=== PATIENT | female | born 1955 | race Caucasian/White ===

== ENCOUNTER → 2019-11-01 10:44 | Outpatient (CLI) | payer MEDICARE, SELFPAY ==
--- NOTE | 2019-11-01 10:52 | DI.MRI.S_ITS ---
PROCEDURE: MR CERVICAL SPINE WO CON INDICATIONS: Neck pain TECHNIQUE: Noncontrast sagittal T1 spin echo and T2 fast spin echo, sagittal STIR, foraminal oblique sagittal T2 fast spin echo, and axial gradient echo or T2 fast spin echo through the cervical spine. COMPARISON: [facility], MR, C-SPINE WITHOUT CONTRAST, 01/25/2017, 12:21. FINDINGS: Image quality: Excellent. Alignment and Curvature: Trace degenerative anterolisthesis of C4 on C5. Bone Marrow: Marrow demonstrates normal overall signal. Spinal Cord: Visualized spinal cord has normal size and signal. No cerebellar tonsillar herniation. Paraspinous Soft Tissues: No paravertebral masses. Prevertebral soft tissues are normal in thickness. C2-C3: No canal stenosis or foraminal stenosis. Right facet hypertrophy. C3-C4: No canal stenosis. Bilateral facet hypertrophy, prominent on the left. Mild bilateral uncovertebral joint hypertrophy. Mild right foraminal narrowing and mild to moderate left foraminal narrowing. C4-C5: Mild disc bulge. Trace anterolisthesis of C4 on C5. Mild flattening of the ventral surface of the cord. Mild canal stenosis. Mild bilateral uncovertebral joint hypertrophy. Bilateral facet hypertrophy, prominent on the left. There is mild right foraminal narrowing. There is moderate left foraminal narrowing with flattening deformity on the exiting left C5 nerve root. C5-C6: Disc bulge, with flattening and mild indentation of the ventral cord and moderate canal stenosis. Bilateral uncovertebral joint hypertrophy. Left facet hypertrophy. Moderate bilateral foraminal narrowing, with flattening deformity on the exiting bilateral C6 nerve roots. C6-C7: Unchanged right paracentral disc protrusion, indenting on the cord, resulting in severe stenosis of the right side of the central canal and moderate stenosis of the left side of the central canal. There is bilateral uncovertebral joint hypertrophy and left facet hypertrophy. There is moderate right foraminal narrowing with flattening deformity on the exiting right C7 nerve root. There is severe left foraminal narrowing with impingement on the left C7 nerve root. C7-T1: No canal stenosis or foraminal stenosis. IMPRESSION: 1. Diffuse spondylitic change. 2. Canal stenosis is mild at C4-C5 and moderate at C5-C6. At C6-C7, there is severe stenosis of the right side of the central canal and moderate stenosis of the left side of the central canal. 3. Multilevel foraminal narrowing as described above. Findings include moderate left foraminal narrowing at C4-C5, moderate bilateral foraminal narrowing at C5-C6, and moderate to severe right foraminal narrowing and severe left foraminal narrowing at C6-C7. 4. Multilevel facet arthropathy. Dictated by: Jose Bright M.D. on 11/01/2019 at 11:38 Approved by: Jose Bright M.D. on 11/01/2019 at 11:52
== END ==
PROVIDERS: Family Provider Family Medicine; PCP Family Medicine; Referring Provider Physical Medicine & Rehabilitation; Visit Provider Physical Medicine & Rehabilitation
DX: M54.2 Cervicalgia (principal); M47.812 Spondylosis without myelopathy or radiculopathy, cervical region; M48.02 Spinal stenosis, cervical region
CPT/HCPCS: 72141

== ENCOUNTER → 2020-03-06 10:01 | Outpatient (CLI) | payer MEDICARE, SELFPAY ==
[2020-03-06 10:41] LABS: Add Manual Diff / Slide Review NO; Basophils Absolute Auto 0 /uL (0-100); Basophils Percent Auto 0.4 % (0-2); Eosinophils Absolute Auto 200 /uL (0-450); Eosinophils Percent Auto 2.6 % (2-4); Hematocrit 39.1 % (36-46); Hemoglobin 13.2 g/dL (12.0-16.0); Lymphocytes Absolute Auto 2600 /uL (1100-4500); Lymphocytes Percent Auto 29.4 % (25-40); Mean Corpuscular HGB Conc 33.9 % (30-36); Mean Corpuscular Hemoglobin 31.8 PG (26-34); Mean Corpuscular Volume 93.9 fL (80-100); Monocytes Absolute Auto 500 /uL (0-900); Monocytes Percent Auto 5.8 % (3-14); Neutrophils Absolute Auto 5500 /uL (1500-7000); Neutrophils Percent Auto 61.8 % (50-75); Platelet Count 223 X10^3/uL (150-400); Red Blood Cell Count 4.16 X10^6/uL (4.0-5.2); Red Cell Distribution Width 13.1 % (11.6-14.8)
[2020-03-06 10:51] LABS: Alanine Aminotransferase 81 IU/L (<35); Albumin 4.6 g/dL (3.5-5.0); Albumin Globulin Ratio 1.3 (1.0-2.8); Alkaline Phosphatase 99 U/L (38-126); Aspartate Aminotransferase 83 IU/L (14-36); BUN Creatinine Ratio 17.1 (6-22); Bilirubin Total 0.7 mg/dL (0.2-1.3); Blood Urea Nitrogen 12 mg/dL (7-17); Calcium 9.8 mg/dL (8.4-10.2); Carbon Dioxide 29 mmol/L (22-32); Chloride 103 mmol/L (98-107); Cholesterol 187 mg/dL (140-199); Estimated Glomerular Filt Rate > 60.0 mL/min (>60); Globulin 3.5 g/dL (1.7-4.1); Glucose 152 mg/dL (80-110); HDL Cholesterol 44 mg/dL (40-60); HEMOLYSIS < 15 (0-50); LDL Cholesterol Calculated 106 mg/dL (<100); Potassium 4.2 mmol/L (3.4-5.1); Sodium 139 mmol/L (137-145); Total Protein 8.1 g/dL (6.3-8.2); Triglycerides 184 mg/dL (35-150)
[2020-03-06 11:22] LABS: Thyroid Stimulating Hormone 2.22 uIU/mL (0.47-4.68)
== END ==
PROVIDERS: Family Provider Family Medicine; PCP Family Medicine; Referring Provider Family Medicine; Visit Provider Family Medicine
DX: E78.2 Mixed hyperlipidemia (principal)
CPT/HCPCS: 36415; 80053; 80061; 84443; 85025

== ENCOUNTER → 2020-04-04 14:54 | Outpatient (CLI) | payer MEDICARE, SELFPAY ==
[2020-04-04 15:52] LABS: Add Manual Diff / Slide Review NO; Basophils Absolute Auto 0 /uL (0-100); Basophils Percent Auto 0.3 % (0-2); Eosinophils Absolute Auto 100 /uL (0-450); Eosinophils Percent Auto 1.3 % (2-4); Hematocrit 40.5 % (36-46); Hemoglobin 13.8 g/dL (12.0-16.0); Lymphocytes Absolute Auto 2400 /uL (1100-4500); Lymphocytes Percent Auto 20.6 % (25-40); Mean Corpuscular HGB Conc 34.2 % (30-36); Mean Corpuscular Hemoglobin 31.7 PG (26-34); Mean Corpuscular Volume 92.8 fL (80-100); Monocytes Absolute Auto 500 /uL (0-900); Monocytes Percent Auto 4.2 % (3-14); Neutrophils Absolute Auto 8400 /uL (1500-7000); Neutrophils Percent Auto 73.6 % (50-75); Platelet Count 217 X10^3/uL (150-400); Red Blood Cell Count 4.37 X10^6/uL (4.0-5.2); Red Cell Distribution Width 13.2 % (11.6-14.8); White Blood Cell Count 11.5 X10^3/uL (4.5-11.0)
[2020-04-04 16:58] LABS: Alanine Aminotransferase 65 IU/L (<35); Albumin 4.7 g/dL (3.5-5.0); Albumin Globulin Ratio 1.4 (1.0-2.8); Alkaline Phosphatase 115 U/L (38-126); Aspartate Aminotransferase 74 IU/L (14-36); BUN Creatinine Ratio 13.8 (6-22); Bilirubin Total 0.6 mg/dL (0.2-1.3); Blood Urea Nitrogen 9 mg/dL (7-17); Calcium 10.6 mg/dL (8.4-10.2); Carbon Dioxide 29 mmol/L (22-32); Chloride 101 mmol/L (98-107); Cholesterol 180 mg/dL (140-199); Estimated Glomerular Filt Rate > 60.0 mL/min (>60); Globulin 3.4 g/dL (1.7-4.1); Glucose 166 mg/dL (80-110); HDL Cholesterol 54 mg/dL (40-60); HEMOLYSIS < 15 (0-50); LDL Cholesterol Calculated 81 mg/dL (<100); Potassium 4.5 mmol/L (3.4-5.1); Sodium 140 mmol/L (137-145); Total Protein 8.1 g/dL (6.3-8.2); Triglycerides 226 mg/dL (35-150)
[2020-04-05 03:22] LABS: HBsAg Screen Negative (Negative); Hepatitis A Antibody IgM Negative (Negative); Hepatitis B Core Antibody IgM Negative (Negative); Hepatitis C Antibody <0.1 s/co ratio (0.0-0.9)
== END ==
PROVIDERS: Family Provider Family Medicine; PCP Family Medicine; Referring Provider Family Medicine; Visit Provider Family Medicine
DX: E78.2 Mixed hyperlipidemia (principal); R79.89 Other specified abnormal findings of blood chemistry
CPT/HCPCS: 36415; 80053; 80061; 80074; 85025

== ENCOUNTER → 2020-04-07 08:27 | Outpatient (CLI) | payer MEDICARE, SELFPAY ==
--- NOTE | 2020-04-07 08:28 | DI.US.S_ITS ---
PROCEDURE: US ABDOMEN COMPLETE INDICATIONS: ELEVATED LFTS TECHNIQUE: Real-time scanning was performed of the abdominal and retroperitoneal organs, with image documentation. COMPARISON: None. FINDINGS: Liver: The liver demonstrates normal size. The liver demonstrates generalized increased echogenicity. This decreases ultrasound sensitivity for detection of hepatic masses. Gallbladder: The gallbladder is prominent in size. No findings of gallstones or sludge are seen. The gallbladder wall is not thickened, measuring 3 mm or less. No specific pericholecystic fluid is seen. The sonographic Jaime sign is negative. Biliary ducts: Intrahepatic biliary ductal dilatation is seen. The common bile duct is dilated, measuring nearly 11 mm. Pancreas: The pancreas is not well seen. The pancreatic duct is minimally dilated at 3.1 mm. Spleen: The spleen measures near the upper limits of normal at 12.8 cm. Kidneys: Kidneys are normal in size and echotexture. Right kidney measures 10.9 cm long; left kidney measures 11.4 cm long. No hydronephrosis. Within the left kidney, numerous small echogenic foci are seen, with associated shadowing. No solid masses. Aorta: Visualized aorta is normal in caliber at less than 3 cm. Iliacs: Proximal common iliac arteries are normal in caliber at less than 2.5 cm. IVC: Intrahepatic inferior vena cava is patent. Miscellaneous: No free abdominal fluid. This study is limited by body habitus. This study is further limited by bowel gas. IMPRESSION: Abnormally enlarged gallbladder, without additional gallbladder abnormality. The common bile duct is dilated at nearly 11 mm. The pancreatic duct is also minimally dilated at 3.1 mm. If clinically appropriate, an MRCP could be considered for further evaluation (assuming that there is no contraindication to MRI). The liver demonstrates increased echogenicity. This finding is nonspecific, yet it is most commonly attributed to fatty infiltration. Apparent nonobstructing left-sided renal stones are seen. Dictated by: Christopher Gillespie M.D. on 04/07/2020 at 13:40 Approved by: Christopher Gillespie M.D. on 04/07/2020 at 13:42
== END ==
PROVIDERS: Family Provider Family Medicine; PCP Family Medicine; Referring Provider Family Medicine; Visit Provider Family Medicine
DX: R79.89 Other specified abnormal findings of blood chemistry (principal); K82.8 Other specified diseases of gallbladder; K83.8 Other specified diseases of biliary tract; N20.0 Calculus of kidney
CPT/HCPCS: 76700

== ENCOUNTER → 2020-04-15 07:51 | Outpatient (CLI) | payer MEDICARE, SELFPAY ==
--- NOTE | 2020-04-15 07:53 | DI.MRI.S_ITS ---
PROCEDURE: MR ABDOMEN WO CON INDICATIONS: Other specified diseases of biliary tract TECHNIQUE: Coronal HASTE through the abdomen, axial 2-D FLASH in- and [id number], and breath-hold T2 FSE with fat saturation through the biliary system and pancreas. Oblique coronal and axial thin-slice HASTE, radial thick-slab HASTE centered on the extrahepatic bile ducts. Intravenous secretin: Not requested. COMPARISON: [facility], , US ABDOMEN COMPLETE, 04/07/2020, 8:49. FINDINGS: Image quality: Excellent. Pancreas and biliary system: Intra-hepatic biliary ducts are non dilated. The common bile duct measures up to 10 mm, above the upper limits of normal for a patient with normal gallbladder in place. The gallbladder itself has mildly diminished in size, previously measuring up to 11.6 cm in length and now 9.5 cm. No gallstones are seen within the gallbladder lumen and no adjacent inflammatory changes present Pancreas is normal in morphology, without adjacent soft tissue edema. Pancreatic duct is normal in caliber, without developmental anomalies. Gallbladder shows no evidence of biliary sludge. Other solid organs: Liver is normal in size, and diffusely fatty infiltrated. Spleen is normal in size. No adrenal nodules. Both kidneys are normal in size, without hydronephrosis. Nodes and vessels: No retroperitoneal or mesenteric adenopathy by size criteria. Aorta and inferior vena cava are normal in size. Bowel and peritoneum: Unenhanced bowel loops are normal in caliber. No free fluid. Lung bases: No basal pleural effusions. Heart size is normal. Bones and soft tissues: No ventral hernias. Bone marrow is of normal overall signal. IMPRESSION: 1. Diffuse fatty infiltration throughout the liver. No hepatic mass or intrahepatic biliary distention is found. 2. The gallbladder is prominent in size but has diminished to 9.5 cm in maximal transverse dimension versus 11.5 cm during ultrasound scanning 04/07/20. Given this prominence in size and the biliary distension identified at the common duct open (measuring up to 10 mm close) follow-up hepatobiliary HIDA scan for assessment of gallbladder contractility may be warranted. 3. The common duct measures up to 10 mm in diameter but on MR cholangiogram moody a gene shows no evidence of distal common duct calculus or mass. Pancreatic duct is normal in caliber. Dictated by: Franky Suresh M.D. on 04/15/2020 at 10:02 Approved by: Franky Suresh M.D. on 04/15/2020 at 10:10
== END ==
PROVIDERS: Family Provider Family Medicine; PCP Family Medicine; Referring Provider Family Medicine; Visit Provider Family Medicine
DX: K83.8 Other specified diseases of biliary tract (principal); K76.0 Fatty (change of) liver, not elsewhere classified
CPT/HCPCS: 74181

== ENCOUNTER → 2020-05-09 09:20 | Outpatient (CLI) | payer MEDICARE, SELFPAY ==
[2020-05-09 22:35] LABS: COVID19 Sendout Not Detected (Not Detect)
== END ==
PROVIDERS: PCP Family Medicine; Visit Provider Physician Assistant
DX: Z11.59 Encounter for screening for other viral diseases (principal)
CPT/HCPCS: 87635

== ENCOUNTER → 2020-05-28 07:47 | Outpatient (CLI) | payer MEDICARE, SELFPAY ==
--- NOTE | 2020-05-28 07:55 | DI.NM.S_ITS ---
PROCEDURE: NM HIDA WITH CCK PHARMACEUTICAL: A 5.5 mCi Tc-99m mebrofenin IV; 1.4 mcg CCK IV. INDICATIONS: biliary dyskinesia TECHNIQUE: Following intravenous administration of Tc-99m mebrofenin, sequential anterior abdominal images were obtained. To evaluate the contractile response of the gallbladder in response to Cholecystokinin (CCK), sincalide (0.02 ?g/kg) was administered by slow intravenous infusion approximately 60 minutes after the administration of the radiopharmaceutical. Sequential imaging was continued for 30 minutes after the start of CCK infusion. Gallbladder ejection fraction was calculated. COMPARISON: None. FINDINGS: Biliary scan: There is normal tracer uptake and excretion by the liver. There is normal visualization of the intrahepatic ducts, common bile duct, and gallbladder. There is normal tracer transit into the duodenum. CCK stimulation: There is normal contractile response of the gallbladder to CCK infusion. The calculated gallbladder ejection fraction is 66% ; normal values are above 35%. It has been shown that any patient abdominal pain after CCK administration is related to the rate of CCK injection, rather than to any underlying gallbladder disease (Clinical Nuclear Medicine 2012; 37: 63-70. Journal of Nuclear Medicine 2014; 55: 1-9). IMPRESSION: Normal hepatobiliary uptake of isotope, normal excretion of the isotope through the biliary system including reflux of isotope into the gallbladder lumen. Normal gallbladder ejection fraction of 66%. Dictated by: Franky Suresh M.D. on 05/28/2020 at 10:40 Approved by: Franky Suresh M.D. on 05/28/2020 at 10:41
== END ==
PROVIDERS: PCP Family Medicine; Referring Provider Surgery; Visit Provider Surgery
DX: K82.8 Other specified diseases of gallbladder (principal)
CPT/HCPCS: 78227; A9537; J2805

== ENCOUNTER → 2020-06-06 10:32 | Outpatient (CLI) | payer MEDICARE, SELFPAY ==
[2020-06-06 11:57] LABS: COVID19 -Nasal RAPID Negative (Negative)
== END ==
PROVIDERS: PCP Family Medicine; Visit Provider Surgery
DX: Z11.59 Encounter for screening for other viral diseases (principal); Z01.812 Encounter for preprocedural laboratory examination
CPT/HCPCS: 87635; C9803

== ENCOUNTER → 2020-06-07 11:02 | Outpatient (CLI) | payer MEDICARE, SELFPAY ==
[2020-06-08 06:53] LABS: HBsAg Screen Negative (Negative); Hepatitis A Antibody IgM Negative (Negative); Hepatitis B Core Antibody IgM Negative (Negative); Hepatitis C Antibody <0.1 s/co ratio (0.0-0.9)
== END ==
PROVIDERS: PCP Family Medicine; Referring Provider Family Medicine; Visit Provider Family Medicine
DX: R79.89 Other specified abnormal findings of blood chemistry (principal)
CPT/HCPCS: 36415; 80074

== ENCOUNTER 2020-06-09 09:12 | Day surgery (SDC) | payer MEDICARE, SELFPAY ==
[2020-06-09 09:34] VITALS: BP 152/88; PULSE 96; RESP 15; TEMP 36.6; O2SAT 97; BMI 27.1
--- NOTE | 2020-06-09 10:22 | PM.HP.1 ---
History of Present Illness History of Present Illness Date Patient Seen: 06/09/20 Time Patient Seen: 10:22 Chief complaint: SDC Narrative: The patient presents for colorectal sreening. They have never had any previous examination for such. No personal or family history of colon cancer. On further history denies any recent gastrointestinal symptoms. No nausea, vomiting, abdominal pain, loss of appetite, unexplained weight loss, change in bowel habits, diarrhea, constipation, melena, hematochezia, or bright red blood per rectum. Patient History Medical History Recurrent sinusitis Surgical History Anesthesia History of sinus surgery (~01/29/15) Family & Social History Family History Father No problems noted. Mother Diabetes mellitus Hypertension Social History: household members spouse Tobacco & Substance use: Tobacco type cigarettes Smoking Status Current every day smoker alcohol intake never Substance Use Type does not use Meds Home Medications and Allergies Home Medications Medication Instructions Recorded Confirmed Type lisinopril 20 mg tablet 20 mg PO BID #180 tab 04/08/20 06/09/20 Rx metoprolol succinate 25 mg 12.5 mg PO BID #30 tab 05/14/20 06/09/20 Rx tablet,extended release 24 hr atorvastatin 10 mg tablet 10 mg PO HS #90 tab 05/30/20 06/09/20 Rx hydrocodone 5 mg-acetaminophen 325 1 - 2 tab PO Q6HP PRN #120 tab 05/30/20 06/09/20 Rx mg tablet Allergies Allergy/AdvReac Type Severity Reaction Status Date / Time codeine AdvReac Mild GI Verified 06/09/20 09:33 erythromycin base AdvReac Mild SICK Verified 06/09/20 09:33 Penicillins AdvReac Mild GI Verified 06/09/20 09:33 Sulfa (Sulfonamide AdvReac Mild NAUSEA Verified 06/09/20 09:33 Antibiotics) Review of Systems Review of Systems Narrative: A 10 point review of systems is negative except as noted in the HPI Exam Vital Signs (past 8 hours): - 06/09/20 09:34 Temperature 97.8 F Pulse Rate 96 H Respiratory Rate 15 Blood Pressure 152/88 H Pulse Oximetry 97 Oxygen Delivery Method Room Air Narrative Exam Narrative: General-no acute distress, well nourished HEENT-moist mucous membranes, no scleral icterus Neck-supple, no lymphadenopathy Chest- non labored respirations, clear to auscultation bilaterally Cardiac-regular rate no peripheral edema Abdomen-soft, nontender, non distended Extremities-warm, well perfused Neurological-alert and oriented, no focal deficits Assessment & Plan Assessment & Plan narrative: The patient requires colorectal screening and colonoscopy is recommended. Technical details were discussed. Risks, benefits, alternatives explained. Risks including but not limited to myocardial infarction, aspiration, bleeding, pain, missed lesion, incomplete examination, need for further radiographic studies, colonic perforation, and need for major abdominal surgery were discussed. All questions were answered to their satisfaction, and they are in agreement with this plan.
[2020-06-09] MEDS: MIDAZOLAM 5 MG/5 ML VIAL IV (10:33)
[2020-06-09] MEDS: fentaNYL 250 MCG/5 ML INJ IV (10:34)
--- NOTE | 2020-06-09 10:46 | PM.OP.ENDO ---
Operative Date/Time/Diagnoses Date of procedure: 06/09/20 Time of procedure: 10:46 Pre-op diagnosis: screening colonoscopy Post-op diagnosis: same Procedure & Clinicians Study performed: colonoscopy Same procedure as scheduled: Yes Indications: screening Surgeon: Eder Alford Procedure Notes Procedure in detail: Medications: Conscious sedation using 6mg IV midazolam and 200mcg IV of fentanyl The history and physical was performed/updated and the patient is ASA class is 2. The procedure was discussed in detail with the patient. Potential risks complications including infection, bleeding, missed diagnosis, perforation, need for surgery, and were explained. Their questions were answered and informed consent was obtained. Patient was brought to the procedure room and placed standard monitoring equipment. The patient's vital signs were monitored continuously throughout the entire procedure. Prior to starting time-out was performed. The ablation patient was placed in the left lateral recumbent position. Procedural sedation was administered. Examination began with a thorough inspection of the perianal area there was no evidence of fissures, fistulae, external hemorrhoids or cutaneous malignancy. The colonoscopy scope was then placed into the anal canal and was advanced to the cecum, which was identified by the ileocecal valve, the appendiceal orifice and the confluence of the taenia. The scope was then slowly withdrawn examining colon thoroughly in all directions, irrigating it of any residual stool. No masses polyps Grade 1 internal hemorrhoids The patient tolerated the procedure well. They will be discharged once criteria are met. The prep was of good/excellent quality. The withdrawl time was 8 minutes. The sedation time was 20 minutes. Findings: internal hemorrhoids Specimen(s): none sent Complications: none Impression: Normal colonoscopy Post-procedure Recommendations: Colonscopy in 10 years Disposition: same day surgery
[2020-06-09 10:48] VITALS: BP 137/77; PULSE 86; RESP 12; TEMP 36.3; O2SAT 93
[2020-06-09 10:53] VITALS: BP 125/70; PULSE 85; RESP 12; O2SAT 93
[2020-06-09 10:58] VITALS: BP 125/70; PULSE 82; RESP 12; O2SAT 92
[2020-06-09 11:05] VITALS: BP 138/66; PULSE 90; RESP 16; O2SAT 95
[2020-06-09 11:08] VITALS: BP 134/64; PULSE 90; RESP 14; TEMP 37.1; O2SAT 96
== END 2020-06-09 11:26 | disposition home or self-care (01) ==
PROVIDERS: PCP Family Medicine; Referring Provider Surgery; Visit Provider Surgery
PROC: 0DJD8ZZ Inspection of Lower Intestinal Tract, Via Natural or Artificial Opening Endoscopic (ICD-10-PCS; CPT 45378; principal; 2020-06-09 10:00)
DX: Z12.11 Encounter for screening for malignant neoplasm of colon (principal); F17.210 Nicotine dependence, cigarettes, uncomplicated; K64.0 First degree hemorrhoids
CPT/HCPCS: G0121; J2250; J3010

== ENCOUNTER 2020-08-19 09:45 | Outpatient (RCR) | payer MEDICARE, OTHER, SELFPAY ==
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
--- NOTE | 2020-02-11 17:11 | PT.OPPOC ---
Physical, Occupational & Speech Therapy At [facility] Current Diagnoses Cervicalgia (02/11/20) Abnormal posture (02/11/20) Weakness (02/11/20) Visit Care Team Role Provider Type Jorge Byrd MD Attending Provider Physician Family Provider Primary Care Provider Referring Provider Specialty: Family Practice Address: [address] [place] [address], [facility] Email: [email or web address] Plan Of Care PT-OP-T Assessment and Plan Start: 01/09/20 17:47 Freq: Status: Active Protocol: Document 02/11/20 08:20 LRN (Rec: 02/11/20 09:03 LRN [id number]) Physical Therapy Assessment Rehab Potential Rehabilitation Potential Good Evaluation Complexity Number of Personal Factors/Comorbidities 1-2 Number of Body Systems Impaired 4 or More Clinical Presentation at Evaluation Evolving Impairments Impairments Activity Tolerance,Functional Activities,Functional Mobility ,Pain,Posture,ROM,Soft Tissue Mobility,Strength Goals ROM Short Term Goal (STG) Pt will improve ROM in all planes by 10 degrees. STG Duration 02/09/20 (02/11/20: Progressing ) Fiber Optics Engineer Goal (LTG) Pt will improve ROM to WFL to allow ability to turn fully when driving. LTG Duration 03/11/20 strength Short Term Goal (STG) Pt will be indep with HEP STG Duration 02/09/20 (02/11/20: Progressing) Fiber Optics Engineer Goal (LTG) Pt will have 4+/5 UE strength and 3/5 EFT to show improved stability in order to allow pt to lift without increased pain. (02/11/20: Generally strength is 5/5 bilaterally, except Extension is 3+/5 bilaterallly ) LTG Duration 03/11/20 (02/11/20: Progressing) activities Fiber Optics Engineer Goal (LTG) Pt will be able to do gardening without increased pain greater than 4/10. (02/11/20: Pain variable, but mostly 5/10) LTG Duration 03/11/20 (02/11/20: Progressing) NDI Impairment 21/50 Short Term Goal (STG) NDI will improve to 16/50 to show improved functional ability for inc participation in typicaly daily activities. (02/11/20: NDI is 13) STG Duration 02/09/20 (02/11/20: MET GOAL) Jail Goal (LTG) NDI will improve to 10/50 to show improved functional ability for inc participation in typicaly daily activities. LTG Duration 03/11/20 (02/11/20: Progressing) Progress Towards Goals Progress Comments 1) Pt function improved per NDI from 21 (40 to 59% impaired) to 13 (20 to 39% impaired), and per QuickDASH score 36.36 to 27.27 (20 to 39 % impaired with score 20-39). 2) Activity pain is less per subjective report of 5/10 ( initially was 8/10). 3) Strength has improved to 5/ 5 except bilateral shoulder ext (3+/5), ADD (3+/5), and R shoulder horiz ADD 3+/5. 4) ROM has variable improvement in the cervical spine but not by 10 deg's. Assessment Summary Assessment Pt has improved in her C. mobility with extension, R rot and R Sidebend. Her shoulder strength has improved overall (see above) and overall her function is improving per NDI & UE QuickDASH scores. The pt was having more discomfort today in her R shoulder and appears to vary based on her activity level. The pt could benefit from continued physical therapy to improve her neck stability and strength as well as improve her R shoulder mobility and strength to further improve her functional abilities and progress to achieving her PT goals. Physical Therapy Plan Frequency and Duration Frequency of Treatment 2x/Week Duration of Treatment 3 months Plan of Care Start Date 01/10/20 Plan of Care End Date 03/20/21 Therapeutic Interventions Therapeutic Interventions Home Exercise Program,Joint Mobilizations,Manual Therapy, Neuromuscular Re-education Modalities Cold Pack/Ice Massage,Electric Stimulation,Hot Packs, Infrared Therapy,Iontophoresis ,Traction- Mechanical, Ultrasound Next Visit Focus/Plan Next Note Type Treatment Note Next Visit Plan Continue neck/R shoulder rehabilitation. Review previously issued HEP. Check thoracic mobility, Set pt up for HEP for neck ( retraction), IR shoulder ROM & strengthening, Check for need of JMT to 1st rib, Progress scapular stabilization, Improve cervical mobility (rot ) for driving and shoulder mobility (associated UT tightness). Ice/heat for pain relief. Plan of Care Dates Plan of Care Start Date 01/10/20 Plan of Care End Date 03/20/21 Electronically Signed by: Maria Del Rosario Healy, PT 02/11/20 3026 Please Sign and Return: I have reviewed this Plan of Care and certify that the skilled therapy services above are required to meet the patient?s needs. Physician Signature Date Printed Name and Credentials Clinical Instructor Signature Printed Name and Credentials
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
--- NOTE | 2020-03-07 08:41 | PT-OP ANOTE ---
Pt DNS, unable to reach pt by phone.
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
--- NOTE | 2020-03-18 11:19 | PT.OPPOC ---
Physical, Occupational & Speech Therapy At [facility] Current Diagnoses Cervicalgia (03/18/20) Abnormal posture (03/18/20) Weakness (03/18/20) Visit Care Team Role Provider Type Jorge Byrd MD Attending Provider Physician Family Provider Primary Care Provider Referring Provider Specialty: Family Practice Address: [address] [place] [address], [facility] Email: [email or web address] Plan Of Care PT-OP-T Assessment and Plan Start: 01/09/20 17:47 Freq: Status: Active Protocol: Document 03/18/20 09:02 [facility] (Rec: 03/18/20 11:18 [facility] [id number]) Physical Therapy Assessment Goals lifting Fpc Goal (LTG) Pt will show good lifting mecahnics for lifting groceries. LTG Duration 04/17/20 ROM Short Term Goal (STG) Pt will improve ROM in all planes by 10 degrees. STG Duration achieved Fire Equipment Repairer Inspector Goal (LTG) Pt will improve ROM to WFL to allow ability to turn fully when driving. LTG Duration achieved strength Short Term Goal (STG) Pt will be indep with HEP (02/11/20: Progressing);03/18- cont to work on progession STG Duration 04/01/20 Fire Equipment Repairer Inspector Goal (LTG) Pt will have 4+/5 UE strength and 3/5 EFT to show improved stability in order to allow pt to lift without increased pain. (02/11/20: Generally strength is 5/5 bilaterally, except Extension is 3+/5 bilaterallly ) LTG Duration 03/11/20 (02/11/20: Progressing) activities Fpc Goal (LTG) Pt will be able to do gardening without increased pain greater than 4/10. (02/11/20: Pain variable, but mostly 5/10) LTG Duration 03/11/20 (03/03/20: MET GOAL) NDI Impairment 21/50 Short Term Goal (STG) NDI will improve to 16/50 to show improved functional ability for inc participation in typicaly daily activities. (02/11/20: NDI is 13) STG Duration 02/09/20 (02/11/20: MET GOAL) Fire Equipment Repairer Inspector Goal (LTG) NDI will improve to 10/50 to show improved functional ability for inc participation in typicaly daily activities. LTG Duration 03/11/20 (02/11/20: Progressing) Assessment Summary Assessment Pt is making overall good progress towards goals but is still limited with her RUE strength. From discussion, it appears like she occasionally does her ROM exercises but not strengthening. She will require full review of exercises to make sure she is focusing where is needed. max ceuing with scap stability exercsies required in order to have appropriate scapular movement and avoid scap elevation Physical Therapy Plan Frequency and Duration Frequency of Treatment 1-2x/week Duration of Treatment 2 months Plan of Care Start Date 03/18/20 Plan of Care End Date 05/18/20 Therapeutic Interventions Therapeutic Interventions Home Exercise Program,Joint Mobilizations,Manual Therapy, Neuromuscular Re-education, Patient/Caregiver Education, Self-Care/Home Management,Soft Tissue Mobilization,Taping, Therapeutic Activities, Therapeutic Exercises Modalities Cold Pack/Ice Massage,Electric Stimulation,Hot Packs, Infrared Therapy,Iontophoresis ,Traction- Mechanical, Ultrasound Next Visit Focus/Plan Next Note Type Treatment Note Next Visit Plan Cont neck/shoulder rehabilitation, improve C/S mobility (rot for driving), add thoracic mobility mobs ( 1st rib and Costovertebral jts), and progress UB strengthening with Biodex vs UBE. Review HEP for neck ( retraction), Add to HEP IR shoulder ROM & strengthening, Improve shoulder mobility ( associated to UT tightness). Cont scapular stabilization progression, Ice/heat for pain relief. Plan of Care Dates Plan of Care Start Date 03/18/20 Plan of Care End Date 05/18/20 Electronically Signed by: Jeanie Martinez, PT 03/18/20 2430 Please Sign and Return: I have reviewed this Plan of Care and certify that the skilled therapy services above are required to meet the patient?s needs. Physician Signature Date Printed Name and Credentials Clinical Instructor Signature Printed Name and Credentials
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
--- NOTE | 2020-05-06 16:15 | PT.OPPOC ---
Physical, Occupational & Speech Therapy At [facility] Current Diagnoses Cervicalgia (05/06/20) Abnormal posture (05/06/20) Weakness (05/06/20) Visit Care Team Role Provider Type Jorge Byrd MD Attending Provider Physician Family Provider Primary Care Provider Referring Provider Specialty: Family Practice Address: [address] [place] [address], [facility] Email: [email or web address] Plan Of Care PT-OP-T Assessment and Plan Start: 01/09/20 17:47 Freq: Status: Active Protocol: Document 05/06/20 09:04 LRN (Rec: 05/06/20 09:28 LRN [id number]) Physical Therapy Assessment Rehab Potential Rehabilitation Potential Good Evaluation Complexity Number of Personal Factors/Comorbidities 1-2 Number of Body Systems Impaired 4 or More Clinical Presentation at Evaluation Evolving Impairments Impairments Functional Mobility,Pain, Posture,ROM,Soft Tissue Mobility Goals lifting Band Lining Bander Goal (LTG) Pt will show good lifting mechanics for lifting groceries. LTG Duration 07/05/20 (Improved for lifting from mid body hgt) ROM Short Term Goal (STG) Pt will improve ROM in all planes by 10 degrees. STG Duration achieved Half-Way Goal (LTG) Pt will improve ROM to WFL to allow ability to turn fully when driving. LTG Duration achieved strength Short Term Goal (STG) Pt will be indep with HEP (02/11/20: Progressing);03/18- cont to work on progession STG Duration 06/01/20 Half-Way Goal (LTG) Pt will have 4+/5 UE strength and 3/5 EFT to show improved stability in order to allow pt to lift without increased pain. (05/06/20: EFT strength is 2/ 5, UE MMT strength is 4+ to 5/ 5). LTG Duration 07/05/20 (EFT Goal Not Met) activities Half-Way Goal (LTG) Pt will be able to do gardening without increased pain greater than 4/10. (02/11/20: Pain variable, but mostly 5/10) LTG Duration 03/11/20 (03/03/20: MET) NDI Impairment 21/50 Short Term Goal (STG) NDI will improve to 16/50 to show improved functional ability for inc participation in typicaly daily activities. (02/11/20: NDI is 13) STG Duration 02/09/20 (02/11/20: MET) Band Lining Bander Goal (LTG) NDI will improve to 10/50 to show improved functional ability for inc participation in typicaly daily activities. (05/06/20: NDI is 12; 03/18/20 : NDI was 9) LTG Duration 07/05/20 Progress Towards Goals Progress Comments UE MMT GOAL MET. EFT Goal NOT MET. Pt Cervical AROM is worse. Assessment Summary Assessment Pt returns after a break in her therapy due to other medical appts. Pt had 2 steroid injections in her upper back and returns for continuation of therapy with goal of preventing surgical intervention of the upper back /neck pain. Pt was able to demonstrate good body mechanics after training for lifting from the gound. Good body mechanics from mid body height. Pt's C. AROM has decreased, but shoulder strength is good except R ( dominant side) is weaker than L. Pt would benefit from continued skilled physical therapy to return pt's active cervical ROM to a more functional level for safer driving and to maximize her pain onset, although her insurance limits may hinder her ability to continue therapy. Upper back strengthening, RUE (dominant side) strengthening, and manual therapy would be appropriate to continue progressing to improve her overall painfree mobility. Physical Therapy Plan Frequency and Duration Frequency of Treatment 1-2x/week Plan of Care Start Date 05/06/20 Plan of Care End Date 07/05/20 Therapeutic Interventions Therapeutic Interventions Home Exercise Program,Joint Mobilizations,Manual Therapy, Neuromuscular Re-education, Patient/Caregiver Education, Self-Care/Home Management,Soft Tissue Mobilization,Taping, Therapeutic Activities, Therapeutic Exercises Modalities Cold Pack/Ice Massage,Electric Stimulation,Hot Packs, Infrared Therapy,Iontophoresis ,Traction- Mechanical, Ultrasound Next Visit Focus/Plan Next Note Type Treatment Note Next Visit Plan Improve neck mobility and R>L shoulder strengthening. Add thoracic mobility mobs (1st rib and Costovertebral jts), and progress UB strengthening with Biodex vs UBE. Assess shoulder ROM. Review HEP for neck ( retraction), Add to HEP IR shoulder ROM & strengthening, Improve shoulder mobility ( associated to UT tightness). Cont scapular stabilization progression, Ice/heat for pain relief. Plan of Care Dates Plan of Care Start Date 05/06/20 Plan of Care End Date 07/05/20 Electronically Signed by: Maria Del Rosario Healy, PT 05/06/20 [id number] Please Sign and Return: I have reviewed this Plan of Care and certify that the skilled therapy services above are required to meet the patient?s needs. Physician Signature Date Printed Name and Credentials Clinical Instructor Signature Printed Name and Credentials
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
--- NOTE | 2020-06-24 17:30 | PT.OPPOC ---
Physical, Occupational & Speech Therapy At [facility] Current Diagnoses Cervicalgia (06/24/20) Abnormal posture (06/24/20) Weakness (06/24/20) Visit Care Team Role Provider Type Jorge Byrd MD Attending Provider Physician Family Provider Primary Care Provider Referring Provider Specialty: Family Practice Address: [address] [place] [address], [facility] Email: [email or web address] Plan Of Care PT-OP-T Assessment and Plan Start: 01/09/20 17:47 Freq: Status: Active Protocol: Document 06/24/20 09:14 LRN (Rec: 06/24/20 09:52 LRN [id number]) Physical Therapy Assessment Rehab Potential Rehabilitation Potential Good Evaluation Complexity Number of Personal Factors/Comorbidities 1-2 Number of Body Systems Impaired 4 or More Clinical Presentation at Evaluation Evolving Impairments Impairments Functional Mobility,Pain, Posture,ROM,Soft Tissue Mobility Goals lifting Protohistorian Goal (LTG) Pt will show good lifting mechanics for lifting groceries. (06/24/20: Pt showed good body mechanics for lifting) LTG Duration 07/05/20 (06/24/20: MET GOAL) . ROM Short Term Goal (STG) Pt will improve ROM in all planes by 10 degrees. STG Duration achieved [facility] Goal (LTG) Pt will improve ROM to WFL to allow ability to turn fully when driving. LTG Duration achieved strength Short Term Goal (STG) Pt will be indep with HEP (02/11/20: Progressing) STG Duration 07/17/20 [facility] Goal (LTG) Pt will have 4+/5 UE strength and 3/5 EFT to show improved stability in order to allow pt to lift without increased pain. (05/06/20: EFT strength is 2/ 5, UE MMT strength is 4+ to 5/ 5). LTG Duration 08/30/20 (EFT Goal Not assessed, pt late.) activities [facility] Goal (LTG) Pt will be able to do gardening without increased pain greater than 4/10. (02/11/20: Pain variable, but mostly 5/10) LTG Duration 03/11/20 (03/03/20: MET) NDI Impairment Short Term Goal (STG) NDI will improve to 16/50 to show improved functional ability for inc participation in typicaly daily activities. (02/11/20: NDI is 13) STG Duration 02/09/20 (02/11/20: MET) Protohistorian Goal (LTG) NDI will improve to 10/50 to show improved functional ability for inc participation in typicaly daily activities. (05/06/20: NDI is 12; 03/18/20 : NDI was 9) LTG Duration 08/30/20 (06/24/20 Pt late, time constraint, not assessed) Progress Towards Goals Progress Comments Lifting goal met. Assessment Summary Assessment Pt returns after extended time because she was not able to attend for sickness and COVID fear reasons. She demonstrates improved active Cervical ROM for ext and L SB motion (no change with R rot/ SB, 5 deg's less with L rot). She shows improved awareness of proper body mechanics, but confusion and lack of recall of her home exercises. The pt has been limited in visits due to insurance limits, and has not been able to attend therapy since her last progress report due to illness and COVID reasons/ restrictions. As expected her progress has been very slow since she has not been able to attend therapy for consistency of a HEP and to improve her shoulder strength, neck posture and stability. The pt would benefit from more consistent therapy 2x/week to create more consistency with a HEP, maximize her neck/ shoulder/thoracic mobility and to decrease pain. Physical Therapy Plan Frequency and Duration Frequency of Treatment 1-2x/week Plan of Care Start Date 06/24/20 Plan of Care End Date 08/30/20 Therapeutic Interventions Therapeutic Interventions Home Exercise Program,Joint Mobilizations,Manual Therapy, Neuromuscular Re-education, Patient/Caregiver Education, Self-Care/Home Management,Soft Tissue Mobilization,Taping, Therapeutic Activities, Therapeutic Exercises Modalities Cold Pack/Ice Massage,Electric Stimulation,Hot Packs, Infrared Therapy,Iontophoresis ,Traction- Mechanical, Ultrasound Next Visit Focus/Plan Next Note Type Treatment Note Next Visit Plan Assess goals for strength, activities and NDI. Add thoracic mobility mobs ( 1st rib and Costovertebral jts), and progress UB strengthening with Biodex vs UBE. Review HEP for neck ( retraction), Add to HEP IR shoulder ROM & strengthening, Improve shoulder mobility ( associated to UT tightness). Improve neck mobility and R>L shoulder strengthening. Cont scapular stabilization progression, Ice/heat for pain relief. Late completion of note. Plan of Care Dates Plan of Care Start Date 06/24/20 Plan of Care End Date 08/30/20 Electronically Signed by: Maria Del Rosario Healy, PT 06/25/20 [id number] Please Sign and Return: I have reviewed this Plan of Care and certify that the skilled therapy services above are required to meet the patient?s needs. Physician Signature Date Printed Name and Credentials Clinical Instructor Signature Printed Name and Credentials
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
== END 2020-08-19 13:55 | disposition home or self-care (01) ==
LOC: PHYS 09:45
PROVIDERS: Family Provider Family Medicine; PCP Family Medicine; Referring Provider Family Medicine; Visit Provider Family Medicine
DX: M54.2 Cervicalgia (principal); R53.1 Weakness; R29.3 Abnormal posture
CPT/HCPCS: 97010; 97110; 97140; 97162; 97530; 97535

== ENCOUNTER → 2020-10-28 10:21 | Outpatient (CLI) | payer MEDICARE, SELFPAY ==
[2020-10-28] MEDS: COVID-19 VACC #1, MRNA(MOD) 100 MCG/0.5 ML VIAL IM (10:33)
== END ==
PROVIDERS: Visit Provider Internal Medicine
DX: Z23 Encounter for immunization (principal)
CPT/HCPCS: 0011A; 91301

== ENCOUNTER → 2020-11-26 09:12 | Outpatient (CLI) | payer MEDICARE, SELFPAY ==
[2020-11-26] MEDS: COVID-19 VACC #2, MRNA(MOD) 100 MCG/0.5 ML VIAL IM (09:39)
== END ==
PROVIDERS: PCP Family Medicine; Visit Provider Internal Medicine
DX: Z23 Encounter for immunization (principal)
CPT/HCPCS: 0012A; 91301

== ENCOUNTER → 2020-12-25 09:41 | Outpatient (CLI) | payer MEDICARE, SELFPAY ==
--- NOTE | 2021-01-28 10:54 | PM.CARDMON.1 ---
Banquet Supervisor Report Referral & Results Date Patient Seen: 12/25/20 Requesting provider: Omar Mcguire Indication: Palpitations Duration of monitoring (days): 9 Diary information: There were 7 patient triggered events and 8 patient diary entries Patient triggered events were associated with (within 45 seconds) sinus rhythm, PACs, PVCs and SVT Patient diary events were associated with sinus rhythm only Data: Minimum heart rate identified was 49 beats per minute at 02:48 on 12/26/2020 Maximum sinus heart rate was 139 beats per minute at 12:39 on 12/29/2020 Maximum overall heart rate was 190 beats per minute at 13:16 on 12/28/2020 during a 4 beat run of SVT Less than 1% of identified beats were ventricular or supraventricular ectopic in origin, which would classify them as rare. Therefore runs of SVT the fastest being the 4 beat run noted above, the longest lasting 12.6 seconds at a rate of 136 beats per minute which suggest more atrial tachycardia than true SVT Impression: 9 day director community organization showing no clear etiology for patient's reported symptoms of palpitations. Diary entries had no dysrhythmias associated with him whatsoever. Other patient events were associated with rare PVCs and PACs Clinical correlation suggested
== END ==
PROVIDERS: PCP Family Medicine; Referring Provider Family Medicine; Visit Provider Family Medicine
DX: R00.2 Palpitations (principal)
CPT/HCPCS: 93242; 93244

== ENCOUNTER → 2021-04-07 08:55 | Outpatient (CLI) | payer MEDICARE, SELFPAY ==
[2021-04-07 10:19] LABS: Add Manual Diff / Slide Review NO; Basophils Absolute Auto 0 /uL (0-100); Basophils Percent Auto 0.3 % (0-2); Eosinophils Absolute Auto 200 /uL (0-450); Hematocrit 40.9 % (36-46); Hemoglobin 13.7 g/dL (12.0-16.0); Lymphocytes Absolute Auto 2200 /uL (1100-4500); Lymphocytes Percent Auto 27.6 % (25-40); Mean Corpuscular HGB Conc 33.6 % (30-36); Mean Corpuscular Hemoglobin 31.2 PG (26-34); Monocytes Absolute Auto 300 /uL (0-900); Monocytes Percent Auto 4.4 % (3-14); Neutrophils Absolute Auto 5200 /uL (1500-7000); Neutrophils Percent Auto 65.7 % (50-75); Platelet Count 199 X10^3/uL (150-400); Red Blood Cell Count 4.39 X10^6/uL (4.0-5.2); Red Cell Distribution Width 13.4 % (11.6-14.8); White Blood Cell Count 7.9 X10^3/uL (4.5-11.0)
[2021-04-07 11:05] LABS: Alanine Aminotransferase 71 IU/L (<35); Albumin 4.7 g/dL (3.5-5.0); Albumin Globulin Ratio 1.5 (1.0-2.8); Alkaline Phosphatase 84 U/L (38-126); Aspartate Aminotransferase 61 IU/L (14-36); BUN Creatinine Ratio 16.7 (6-22); Bilirubin Total 0.7 mg/dL (0.2-1.3); Blood Urea Nitrogen 11 mg/dL (7-17); Carbon Dioxide 31 mmol/L (22-32); Chloride 101 mmol/L (98-107); Cholesterol 201 mg/dL (140-199); Estimated Glomerular Filt Rate > 60.0 mL/min (>60); Globulin 3.2 g/dL (1.7-4.1); Glucose 257 mg/dL (80-110); HDL Cholesterol 53 mg/dL (40-60); HEMOLYSIS < 15 (0-50); LDL Cholesterol Calculated 105 mg/dL (<100); Potassium 4.9 mmol/L (3.4-5.1); Sodium 140 mmol/L (137-145); Total Protein 7.9 g/dL (6.3-8.2); Triglycerides 216 mg/dL (35-150)
== END ==
PROVIDERS: PCP Family Medicine; Referring Provider Family Medicine; Visit Provider Family Medicine
DX: E78.2 Mixed hyperlipidemia (principal); I10 Essential (primary) hypertension
CPT/HCPCS: 36415; 80053; 80061; 85025

== ENCOUNTER → 2021-04-09 11:07 | Outpatient (CLI) | payer MEDICARE, SELFPAY | PROVIDERS: PCP Family Medicine; Referring Provider Family Medicine; Visit Provider Family Medicine | DX: R73.01 Impaired fasting glucose (principal) | CPT/HCPCS: 36415; 83036 ==

== ENCOUNTER → 2021-05-12 12:20 | Outpatient (CLI) | payer MEDICARE, SELFPAY ==
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
== END ==
PROVIDERS: PCP Family Medicine; Referring Provider Family Medicine; Visit Provider Family Medicine
DX: E11.9 Type 2 diabetes mellitus without complications (principal); Z79.84 Long term (current) use of oral hypoglycemic drugs; Z71.3 Dietary counseling and surveillance
CPT/HCPCS: 97802

== ENCOUNTER → 2021-05-27 09:26 | Outpatient (CLI) | payer MEDICARE, SELFPAY ==
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
== END ==
PROVIDERS: PCP Family Medicine; Referring Provider Family Medicine; Visit Provider Family Medicine
DX: E11.9 Type 2 diabetes mellitus without complications (principal); Z71.3 Dietary counseling and surveillance; Z79.84 Long term (current) use of oral hypoglycemic drugs
CPT/HCPCS: G0108

== ENCOUNTER → 2021-06-03 10:53 | Outpatient (CLI) | payer MEDICARE, SELFPAY ==
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
== END ==
PROVIDERS: PCP Family Medicine; Referring Provider Family Medicine; Visit Provider Family Medicine
DX: E11.9 Type 2 diabetes mellitus without complications (principal)
CPT/HCPCS: 97803

== ENCOUNTER → 2021-07-28 14:52 | Outpatient (CLI) | payer MEDICARE, SELFPAY ==
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
== END ==
PROVIDERS: PCP Family Medicine; Referring Provider Family Medicine; Visit Provider Family Medicine
DX: E11.9 Type 2 diabetes mellitus without complications (principal); Z79.84 Long term (current) use of oral hypoglycemic drugs
CPT/HCPCS: 97803

== ENCOUNTER 2021-09-04 13:45 | Outpatient (RCR) | payer MEDICARE, SELFPAY ==
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
--- NOTE | 2021-04-09 14:46 | PT.OTN ---
Current Diagnoses Other chronic pain (04/09/21) Cervicalgia (04/09/21) Low back pain (04/09/21) Pain in thoracic spine (04/09/21) Muscle weakness (generalized) (04/09/21) Physical Therapy Treatment Note PT-OP-A Visit Information Start: 04/02/21 17:26 Freq: Status: Active Protocol: Document 04/09/21 12:51 LRN (Rec: 04/09/21 13:32 LRN [id number]) Out-Patient Physical Therapy Visit Information Visit Information Visit Type Treatment Note Visit Start Time 12:51 Visit Stop Time 13:41 Total Visit Minutes 50 Visit Number 2 Evaluation Information Evaluation Date 04/03/21 Precautions Precautions Controlled HBP, chronic back and neck pain, chronic sinusitis. PT-OP-B Current Condition Start: 04/02/21 17:26 Freq: Status: Active Protocol: Document 04/03/21 12:47 LRN (Rec: 04/03/21 13:35 LRN [id number]) Current Condition History of Current Condition Onset Date November 2020 Current Complaints Constant R neck pain that worsens with head movement. History of Current Condition Ongoing R Neck/bilateral shoulder pain that has progressively to the point she has pain with any movement of her head. At night, sometimes wakes every hour due to pain and sometimes can sleep 5-6 hours. Slight movements can cause increase in R neck pain. Prior Treatments and Tests Physical Therapy 2 yrs ago. 2019 Cortisone spinal injections in the neck that was not helpful. Treatment Goals Patient/Caregiver Goals Pt goal with therapy is to decrease pain to be able to sit in chair for 2 hours for movie, decrease constant to 0/ 10 and decrease pain with movement to 3/10. Prior Functional Status Baseline Function- ADL's Independent Baseline Function- Mobility Independent Baseline Function- Other Able to sit 2+ hours to watch a movie. Limited to light duty (vacuum, dishes, small grocery bags). Sometimes able to sleep. Current Functional Impairments (Reported) Functional Limitations- ADL's Limited sitting of 1 hour due to neck pain. Limited to light duty (vacuum, dishes, small grocery bags). Sleeping disruption variable. Personal Factors Other Personal Factors That May Effect Chronic R sinusitis causes Therapy/Recovery headaches and eye socket pain. PT-OP-C Subjective Start: 04/02/21 17:26 Freq: Status: Active Protocol: Document 04/09/21 12:51 LRN (Rec: 04/09/21 13:32 LRN [id number]) OP-PT Subjective Patient Comments Patient Comments Same, worried about high blood sugar. PT-OP-E Functional Tests Start: 04/02/21 17:26 Freq: Status: Active Protocol: Document 04/09/21 12:51 LRN (Rec: 04/09/21 13:32 LRN [id number]) Functional Tests Apley's Scratch Test Action 1- Left Inferomedial angle of scapula Action 1- Right Mid scapular spine Action 2- Left T3 Action 2- Right T3 Action 3- Left T7 Action 3- Right L4 PT-OP-H Neuro Start: 04/02/21 17:26 Freq: Status: Active Protocol: Document 04/03/21 12:47 LRN (Rec: 04/03/21 13:35 LRN [id number]) Sensation Evaluation Gross Sensation Gross Sensation WNL Deep Tendon Reflex & Clonus Assessment Deep Tendon Reflex Bilateral Tricep Deep Tendon Reflex 1+ Diminished Bilateral Bicep Deep Tendon Reflex 2+ Normal PT-OP-J Posture/Palpation/Skin Start: 04/02/21 17:26 Freq: Status: Active Protocol: Document 04/03/21 12:47 LRN (Rec: 04/03/21 13:35 LRN [id number]) Posture Evaluation Position Standing Head/C-Spine Posture Forward Head Shoulder Posture (R) Forward,(L) Elevated Comments Posture Comments Dowagers hump, Straighten upper thoracic spine. Palpation Assessment Location Upper thoracic spine Palpation Location T/S Palpation Findings Soft Tissue Tightness,Muscle Guarding Upper shoulders Palpation Location UT's Palpation Findings Soft Tissue Tightness, Tenderness Neck Palpation Location Posterior & R lateral neck Palpation Findings Soft Tissue Tightness, Tenderness PT-OP-K Range of Motion Start: 04/02/21 17:26 Freq: Status: Active Protocol: Document 04/03/21 12:47 LRN (Rec: 04/03/21 13:35 LRN [id number]) Cervical Spine Range of Motion Cervical Spine Active Degrees Testing Position Sitting Flexion 38 Extension 40 Rotation Left 52 Rotation Right 55 Lateral Flexion Left 27 Lateral Flexion Right 25 ROM Limitations Soft Tissue Tightness,Pain Shoulder Goniometric Range of Motion Shoulder Right Active Testing Position Sitting Flexion 152 Extension 60 Abduction 155 External Rotation at 0 degrees Abduction 42 Internal Rotation Behind Back (text) L3 Left Active Testing Position Sitting Flexion 153 Extension 60 Abduction 150 External Rotation at 0 degrees Abduction 37 Internal Rotation Behind Back (text) T6 PT-OP-M Strength Start: 04/02/21 17:26 Freq: Status: Active Protocol: Document 04/03/21 12:47 LRN (Rec: 04/03/21 13:35 LRN [id number]) Cervical Spine Strength Cervical Spine Manual Muscle Testing Flexion (C1-2) 4 Good Extension 5 Normal Shoulder Strength Shoulder Manual Muscle Testing Right Flexion 4 Good Abduction (C5) 4+ Good+ External Rotation 4- Good- Internal Rotation 4 Good Left Flexion 4 Good Abduction (C5) 4+ Good+ External Rotation 4 Good Internal Rotation 5 Normal PT-OP-Q Treatments Start: 04/02/21 17:26 Freq: Status: Active Protocol: Document 04/09/21 12:51 LRN (Rec: 04/09/21 13:32 LRN [id number]) Therapeutic Exercises Supine Exercises Shoulder Horiz AB/AD Supine Exercise Name Wand stretch Side bilateral Reps/Minutes 4' Shoulder flex Supine Exercise Name Wand stretch Side bilateral Reps/Minutes 3' ROM neck Supine Exercise Name PROM & AROM stretch Side bilateral Reps/Minutes 11' Sitting Exercises Shoulder horiz AD stretch Sitting Exercise Name Reaching behind shoulder Side bilateral Reps/Minutes 2' Comments ROM taken Shoulder IR stretch Sitting Exercise Name Reaching behind head Side bilateral Reps/Minutes 2' Comments ROM taken Shoulder ER stretch Sitting Exercise Name R>L, Reaching behind back Side bilateral Reps/Minutes 3' Comments ROM taken Manual Therapy Treatment Soft Tissue Mobilization Neck Body Location L>R, Bilateral Paraspinals, UT /Scalenes, Mobilization Type Myofascial Release,Sustained Pressure,Trigger Point Release Intensity/Depth Moderate Body Position Supine Comments MH to neck applied PT-OP-R Modalities Start: 04/02/21 17:26 Freq: Status: Active Protocol: Document 04/09/21 12:51 LRN (Rec: 04/09/21 13:32 LRN [id number]) Electric Stimulation Electric Stimulation Interferential Current (IFC) Body Location (T1/T2) Duration (Minutes) 10 Intensity 15 Target/Sweep Sweep Patient Position Hooklying Combined With Heat/Cold Cold Pack Comments Hot Pack to back/Cold Pack to neck Hot Pack/Cold Pack Treatment Cold Pack Location Neck Patient Position Hooklying Treatment Duration (minutes) 10 Patient Tolerance Good Comments During E-Stim, and in conjunction with MH to back. Hot Pack Location Back Patient Position Hooklying Treatment Duration (minutes) 10 Patient Tolerance Good Comments During E-Stim, and in conjunction with Cold pack to neck. PT-OP-T Assessment and Plan Start: 04/02/21 17:26 Freq: Status: Active Protocol: Document 04/09/21 12:51 LRN (Rec: 04/09/21 13:32 LRN [id number]) Physical Therapy Assessment Goals Four Impairment Constant bilateral upper shoulder pain rated 1-6/10. Impairment Initial Neck & shoulder Disability Index is 14/50 = 20 -39% impaired Short Term Goal (STG) Reduce bilateral upper shoulder pain to intermittent in nature. STG Duration 05/03/21 Communications Tech Goal (LTG) Decrease pain with movement to no greater than 3/10 to improve sleeping ability ( increase episodes of longer nights sleep. LTG Duration 06/16/21 Three Impairment Omari shoulder mobility limiting movement due to pain (1-6/10) Impairment AROM (in deg's) in sitting: L shoulder: flex 153, Ext 60, AB 150, ER (at 0 deg's AB) 37 , IR (behind back) T6. R shoulder: flex 152, Ext 60, AB 155, ER (at 0 deg's AB) 42 , IR (behind back) L3. Initial UE QuickDASH score is 22.5 with 1 question missed ( indicates 20-39% impaired). Short Term Goal (STG) Pt will be independent with a HEP of shoulder PROM & AROM ex 's. STG Duration 05/03/21 Skilled Nursing Goal (LTG) Improve active bilateral shoulder mobility (in sitting) for improved function per UE QuickDASH score less than 20 ( Initial Score is 22.5 with one question not answered). LTG Duration 06/16/21 Two Impairment Constant neck pain rated 1-6/ 10 Impairment Initial Neck & shoulder Disability Index is 14/50 = 20 -39% impaired Short Term Goal (STG) Reduce neck pain for pt perception of being intermittent in nature with pt able to sit in chair for 2 hours for relaxation or movie watching. STG Duration 05/03/21 Skilled Nursing Goal (LTG) Decrease pain with improved function per neck/shoulder disability index score 9 or less. LTG Duration 06/16/21 One Impairment Self care HEP needed Short Term Goal (STG) Review and update pt's current HEP. STG Duration 04/10/21 Skilled Nursing Goal (LTG) Pt will be independent in a self care HEP to promote reduction of neck/shoulder pain and improve neck/shoulder mobility. LTG Duration 06/16/21 Assessment Summary Assessment Very tender and tight in bilateral UT/scalenes, L cervical paraspinals. Pt forgot her HEP for review and will bring next visit. Pt felt greater ease of movement of her arms after treatment. Physical Therapy Plan Frequency and Duration Frequency of Treatment 2x/Week Plan of Care Start Date 04/03/21 Plan of Care End Date 06/16/21 Next Visit Focus/Plan Next Note Type Treatment Note Next Visit Plan Assess Apley's for IR/ER reaching before & after ROM/ STM treatment. Review pt's existing HEP and modify or update as appropriate. If pt brings her ?Stim unit it, decide for appropriateness of use of ice/ES here in clinic. MH during neck/shoulder PROM ex's, manual therapy to improve thoracic and cervical posturing, posture training, cervical stabilization & Omari shoulder/neck ROM. Ice/EStim (neck, MH to back) if pt finds helpful and her home unit can't provide relief.
--- NOTE | 2021-04-17 17:11 | PT.OTN ---
Current Diagnoses Other chronic pain (04/17/21) Cervicalgia (04/17/21) Low back pain (04/17/21) Pain in thoracic spine (04/17/21) Muscle weakness (generalized) (04/17/21) Physical Therapy Treatment Note PT-OP-A Visit Information Start: 04/02/21 17:26 Freq: Status: Active Protocol: Document 04/17/21 09:49 LRN (Rec: 04/17/21 10:42 LRN [id number]) Out-Patient Physical Therapy Visit Information Visit Information Visit Type Treatment Note Visit Start Time 09:49 Visit Stop Time 10:56 Total Visit Minutes 67 Visit Number 3 Evaluation Information Evaluation Date 04/03/21 Precautions Precautions Controlled HBP, chronic back and neck pain, chronic sinusitis. PT-OP-B Current Condition Start: 04/02/21 17:26 Freq: Status: Active Protocol: Document 04/03/21 12:47 LRN (Rec: 04/03/21 13:35 LRN [id number]) Current Condition History of Current Condition Onset Date November 2020 Current Complaints Constant R neck pain that worsens with head movement. History of Current Condition Ongoing R Neck/bilateral shoulder pain that has progressively to the point she has pain with any movement of her head. At night, sometimes wakes every hour due to pain and sometimes can sleep 5-6 hours. Slight movements can cause increase in R neck pain. Prior Treatments and Tests Physical Therapy 2 yrs ago. 2019 Cortisone spinal injections in the neck that was not helpful. Treatment Goals Patient/Caregiver Goals Pt goal with therapy is to decrease pain to be able to sit in chair for 2 hours for movie, decrease constant to 0/ 10 and decrease pain with movement to 3/10. Prior Functional Status Baseline Function- ADL's Independent Baseline Function- Mobility Independent Baseline Function- Other Able to sit 2+ hours to watch a movie. Limited to light duty (vacuum, dishes, small grocery bags). Sometimes able to sleep. Current Functional Impairments (Reported) Functional Limitations- ADL's Limited sitting of 1 hour due to neck pain. Limited to light duty (vacuum, dishes, small grocery bags). Sleeping disruption variable. Personal Factors Other Personal Factors That May Effect Chronic R sinusitis causes Therapy/Recovery headaches and eye socket pain. PT-OP-C Subjective Start: 04/02/21 17:26 Freq: Status: Active Protocol: Document 04/17/21 09:49 LRN (Rec: 04/17/21 10:42 LRN [id number]) OP-PT Subjective Patient Comments Patient Comments Neck and upper-mid thoracic, middle and to the right. Didn 't sleep well due to noise in house. PT-OP-E Functional Tests Start: 04/02/21 17:26 Freq: Status: Active Protocol: Document 04/09/21 12:51 LRN (Rec: 04/09/21 13:32 LRN [id number]) Functional Tests Apley's Scratch Test Action 1- Left Inferomedial angle of scapula Action 1- Right Mid scapular spine Action 2- Left T3 Action 2- Right T3 Action 3- Left T7 Action 3- Right L4 PT-OP-H Neuro Start: 04/02/21 17:26 Freq: Status: Active Protocol: Document 04/03/21 12:47 LRN (Rec: 04/03/21 13:35 LRN [id number]) Sensation Evaluation Gross Sensation Gross Sensation WNL Deep Tendon Reflex & Clonus Assessment Deep Tendon Reflex Bilateral Tricep Deep Tendon Reflex 1+ Diminished Bilateral Bicep Deep Tendon Reflex 2+ Normal PT-OP-J Posture/Palpation/Skin Start: 04/02/21 17:26 Freq: Status: Active Protocol: Document 04/03/21 12:47 LRN (Rec: 04/03/21 13:35 LRN [id number]) Posture Evaluation Position Standing Head/C-Spine Posture Forward Head Shoulder Posture (R) Forward,(L) Elevated Comments Posture Comments Dowagers hump, Straighten upper thoracic spine. Palpation Assessment Location Upper thoracic spine Palpation Location T/S Palpation Findings Soft Tissue Tightness,Muscle Guarding Upper shoulders Palpation Location UT's Palpation Findings Soft Tissue Tightness, Tenderness Neck Palpation Location Posterior & R lateral neck Palpation Findings Soft Tissue Tightness, Tenderness PT-OP-K Range of Motion Start: 04/02/21 17:26 Freq: Status: Active Protocol: Document 04/03/21 12:47 LRN (Rec: 04/03/21 13:35 LRN [id number]) Cervical Spine Range of Motion Cervical Spine Active Degrees Testing Position Sitting Flexion 38 Extension 40 Rotation Left 52 Rotation Right 55 Lateral Flexion Left 27 Lateral Flexion Right 25 ROM Limitations Soft Tissue Tightness,Pain Shoulder Goniometric Range of Motion Shoulder Right Active Testing Position Sitting Flexion 152 Extension 60 Abduction 155 External Rotation at 0 degrees Abduction 42 Internal Rotation Behind Back (text) L3 Left Active Testing Position Sitting Flexion 153 Extension 60 Abduction 150 External Rotation at 0 degrees Abduction 37 Internal Rotation Behind Back (text) T6 PT-OP-M Strength Start: 04/02/21 17:26 Freq: Status: Active Protocol: Document 04/03/21 12:47 LRN (Rec: 04/03/21 13:35 LRN [id number]) Cervical Spine Strength Cervical Spine Manual Muscle Testing Flexion (C1-2) 4 Good Extension 5 Normal Shoulder Strength Shoulder Manual Muscle Testing Right Flexion 4 Good Abduction (C5) 4+ Good+ External Rotation 4- Good- Internal Rotation 4 Good Left Flexion 4 Good Abduction (C5) 4+ Good+ External Rotation 4 Good Internal Rotation 5 Normal PT-OP-Q Treatments Start: 04/02/21 17:26 Freq: Status: Active Protocol: Document 04/17/21 09:49 LRN (Rec: 04/17/21 10:42 LRN [id number]) Therapeutic Exercises Supine Exercises Neck Elongation Supine Exercise Name Neck Elongation/Chin Tuck Reps/Minutes 2' ROM neck Supine Exercise Name PROM & AROM stretch Side bilateral Reps/Minutes 12' Manual Therapy Treatment Soft Tissue Mobilization Neck Body Location L>R, Bilateral Paraspinals, UT /Scalenes, Mobilization Type Myofascial Release,Sustained Pressure,Trigger Point Release Intensity/Depth Moderate Body Position Supine Comments MH to neck applied pecs Body Location Pec stretch Joint Mobilizations T1-T3 Joint T1-T3 Direction PA, Rot Grade II Body Position Prone Reps/Duration 5' 1st rib Joint 1st rib Direction Inferior Grade III Body Position Supine Reps/Duration 8' Self-Care/Home Management Treatment Education Patient Education Home Exercise Program Activities Self-Care/Home Management Activities Reviewed at length, verbally each of pt's HEP of neck/ shoulder stretches, with extra time taken to update her current HEP. PT-OP-R Modalities Start: 04/02/21 17:26 Freq: Status: Active Protocol: Document 04/17/21 09:49 LRN (Rec: 04/17/21 16:55 LRN [id number]) Electric Stimulation Electric Stimulation Interferential Current (IFC) Body Location (T1/T2) Duration (Minutes) 15 Intensity 15 Patient Position Hooklying Combined With Heat/Cold Hot Pack Comments Contraction Type: Premod Hot Pack to back/neck Hot Pack/Cold Pack Treatment Hot Pack Location Neck/Back Patient Position Hooklying Treatment Duration (minutes) 15 Patient Tolerance Good PT-OP-T Assessment and Plan Start: 04/02/21 17:26 Freq: Status: Active Protocol: Document 04/17/21 09:49 LRN (Rec: 04/17/21 10:42 LRN [id number]) Physical Therapy Assessment Goals Four Impairment Constant bilateral upper shoulder pain rated 1-6/10. Impairment Initial Neck & shoulder Disability Index is 14/50 = 20 -39% impaired Short Term Goal (STG) Reduce bilateral upper shoulder pain to intermittent in nature. STG Duration 05/03/21 Display Fabricator Goal (LTG) Decrease pain with movement to no greater than 3/10 to improve sleeping ability ( increase episodes of longer nights sleep. LTG Duration 06/16/21 Three Impairment Omari shoulder mobility limiting movement due to pain (1-6/10) Impairment AROM (in deg's) in sitting: L shoulder: flex 153, Ext 60, AB 150, ER (at 0 deg's AB) 37 , IR (behind back) T6. R shoulder: flex 152, Ext 60, AB 155, ER (at 0 deg's AB) 42 , IR (behind back) L3. Initial UE QuickDASH score is 22.5 with 1 question missed ( indicates 20-39% impaired). Short Term Goal (STG) Pt will be independent with a HEP of shoulder PROM & AROM ex 's. STG Duration 05/03/21 Detention Goal (LTG) Improve active bilateral shoulder mobility (in sitting) for improved function per UE QuickDASH score less than 20 ( Initial Score is 22.5 with one question not answered). LTG Duration 06/16/21 Two Impairment Constant neck pain rated 1-6/ 10 Impairment Initial Neck & shoulder Disability Index is 14/50 = 20 -39% impaired Short Term Goal (STG) Reduce neck pain for pt perception of being intermittent in nature with pt able to sit in chair for 2 hours for relaxation or movie watching. STG Duration 05/03/21 Detention Goal (LTG) Decrease pain with improved function per neck/shoulder disability index score 9 or less. LTG Duration 06/16/21 One Impairment Self care HEP needed Short Term Goal (STG) Review and update pt's current HEP. STG Duration 04/10/21 Detention Goal (LTG) Pt will be independent in a self care HEP to promote reduction of neck/shoulder pain and improve neck/shoulder mobility. LTG Duration 06/16/21 Assessment Summary Assessment Extra time needed to address pt's current HEP due to multiple exercises. Started pt on stretches and had pt defer strengthening. Pt will bring strengthening ex's in next treatment for review. Pt is very guarded in her neck/ shoulder and was not able to identify if use of MH/EStim had any ferry terminal agent benefits. She did not note lessening of pain after last session. Physical Therapy Plan Frequency and Duration Frequency of Treatment 2x/Week Plan of Care Start Date 04/03/21 Plan of Care End Date 06/16/21 Next Visit Focus/Plan Next Note Type Treatment Note Next Visit Plan Assess Apley's for IR/ER reaching before & after ROM/ STM treatment. Review pt's existing HEP for strengthening & modify or update as appropriate. If pt brings her ?Stim unit it, decide for appropriateness of use of ice/ ES here in clinic. MH during neck/shoulder PROM ex's, manual therapy to improve thoracic and cervical posturing, posture training, cervical stabilization & Omari shoulder/neck ROM. Ice/EStim (neck, MH to back) if pt finds helpful and her home unit can't provide relief.
--- NOTE | 2021-04-28 18:47 | PT.OTN ---
Current Diagnoses Other chronic pain (04/28/21) Cervicalgia (04/28/21) Low back pain (04/28/21) Pain in thoracic spine (04/28/21) Muscle weakness (generalized) (04/28/21) Physical Therapy Treatment Note PT-OP-A Visit Information Start: 04/02/21 17:26 Freq: Status: Active Protocol: Document 04/28/21 09:51 LRN (Rec: 04/28/21 10:29 LRN [id number]) Out-Patient Physical Therapy Visit Information Visit Information Visit Type Treatment Note Visit Start Time 09:51 Visit Stop Time 10:35 Total Visit Minutes 44 Visit Number 4 Evaluation Information Evaluation Date 04/03/21 Precautions Precautions Controlled HBP, chronic back and neck pain, chronic sinusitis. PT-OP-B Current Condition Start: 04/02/21 17:26 Freq: Status: Active Protocol: Document 04/03/21 12:47 LRN (Rec: 04/03/21 13:35 LRN [id number]) Current Condition History of Current Condition Onset Date November 2020 Current Complaints Constant R neck pain that worsens with head movement. History of Current Condition Ongoing R Neck/bilateral shoulder pain that has progressively to the point she has pain with any movement of her head. At night, sometimes wakes every hour due to pain and sometimes can sleep 5-6 hours. Slight movements can cause increase in R neck pain. Prior Treatments and Tests Physical Therapy 2 yrs ago. 2019 Cortisone spinal injections in the neck that was not helpful. Treatment Goals Patient/Caregiver Goals Pt goal with therapy is to decrease pain to be able to sit in chair for 2 hours for movie, decrease constant to 0/ 10 and decrease pain with movement to 3/10. Prior Functional Status Baseline Function- ADL's Independent Baseline Function- Mobility Independent Baseline Function- Other Able to sit 2+ hours to watch a movie. Limited to light duty (vacuum, dishes, small grocery bags). Sometimes able to sleep. Current Functional Impairments (Reported) Functional Limitations- ADL's Limited sitting of 1 hour due to neck pain. Limited to light duty (vacuum, dishes, small grocery bags). Sleeping disruption variable. Personal Factors Other Personal Factors That May Effect Chronic R sinusitis causes Therapy/Recovery headaches and eye socket pain. PT-OP-C Subjective Start: 04/02/21 17:26 Freq: Status: Active Protocol: Document 04/28/21 09:51 LRN (Rec: 04/28/21 10:29 LRN [id number]) OP-PT Subjective Patient Comments Patient Comments States the E-Stim/MH/ice is helpful because it allows her to do more. . PT-OP-E Functional Tests Start: 04/02/21 17:26 Freq: Status: Active Protocol: Document 04/28/21 09:51 LRN (Rec: 04/28/21 10:29 LRN [id number]) Functional Tests Apley's Scratch Test Action 1- Left Superior spine of scapula Action 1- Right Superior spine of scapula Action 2- Left T3 Action 2- Right T3 Action 3- Left L4 Action 3- Right L2 PT-OP-H Neuro Start: 04/02/21 17:26 Freq: Status: Active Protocol: Document 04/03/21 12:47 LRN (Rec: 04/03/21 13:35 LRN [id number]) Sensation Evaluation Gross Sensation Gross Sensation WNL Deep Tendon Reflex & Clonus Assessment Deep Tendon Reflex Bilateral Tricep Deep Tendon Reflex 1+ Diminished Bilateral Bicep Deep Tendon Reflex 2+ Normal PT-OP-J Posture/Palpation/Skin Start: 04/02/21 17:26 Freq: Status: Active Protocol: Document 04/03/21 12:47 LRN (Rec: 04/03/21 13:35 LRN [id number]) Posture Evaluation Position Standing Head/C-Spine Posture Forward Head Shoulder Posture (R) Forward,(L) Elevated Comments Posture Comments Dowagers hump, Straighten upper thoracic spine. Palpation Assessment Location Upper thoracic spine Palpation Location T/S Palpation Findings Soft Tissue Tightness,Muscle Guarding Upper shoulders Palpation Location UT's Palpation Findings Soft Tissue Tightness, Tenderness Neck Palpation Location Posterior & R lateral neck Palpation Findings Soft Tissue Tightness, Tenderness PT-OP-K Range of Motion Start: 04/02/21 17:26 Freq: Status: Active Protocol: Document 04/03/21 12:47 LRN (Rec: 04/03/21 13:35 LRN [id number]) Cervical Spine Range of Motion Cervical Spine Active Degrees Testing Position Sitting Flexion 38 Extension 40 Rotation Left 52 Rotation Right 55 Lateral Flexion Left 27 Lateral Flexion Right 25 ROM Limitations Soft Tissue Tightness,Pain Shoulder Goniometric Range of Motion Shoulder Right Active Testing Position Sitting Flexion 152 Extension 60 Abduction 155 External Rotation at 0 degrees Abduction 42 Internal Rotation Behind Back (text) L3 Left Active Testing Position Sitting Flexion 153 Extension 60 Abduction 150 External Rotation at 0 degrees Abduction 37 Internal Rotation Behind Back (text) T6 PT-OP-M Strength Start: 04/02/21 17:26 Freq: Status: Active Protocol: Document 04/03/21 12:47 LRN (Rec: 04/03/21 13:35 LRN [id number]) Cervical Spine Strength Cervical Spine Manual Muscle Testing Flexion (C1-2) 4 Good Extension 5 Normal Shoulder Strength Shoulder Manual Muscle Testing Right Flexion 4 Good Abduction (C5) 4+ Good+ External Rotation 4- Good- Internal Rotation 4 Good Left Flexion 4 Good Abduction (C5) 4+ Good+ External Rotation 4 Good Internal Rotation 5 Normal PT-OP-Q Treatments Start: 04/02/21 17:26 Freq: Status: Active Protocol: Document 04/28/21 09:51 LRN (Rec: 04/28/21 10:29 LRN [id number]) Therapeutic Exercises Supine Exercises Neck Elongation Supine Exercise Name Neck Elongation/Chin Tuck Reps/Minutes 3' Sitting Exercises Neck ROM stretch Sitting Exercise Name AROM (SB, Rot) stretch Side bilateral Reps/Minutes 7' Comments Pt needed review with cuing given Manual Therapy Treatment Soft Tissue Mobilization Neck Body Location L>R, Bilateral Paraspinals, UT /MT Mobilization Type Myofascial Release,Sustained Pressure,Trigger Point Release Intensity/Depth Moderate Body Position Prone Comments Pillow above breasts Joint Mobilizations T1-T3 Joint T1-T3 Direction PA, Rot Grade II Body Position Prone Reps/Duration 5' Self-Care/Home Management Treatment Education Other Education Pt to bring in her E-stim unit and her HEP for review of AROM and strengthening. PT-OP-R Modalities Start: 04/02/21 17:26 Freq: Status: Active Protocol: Document 04/28/21 09:51 LRN (Rec: 04/28/21 10:29 LRN [id number]) Electric Stimulation Electric Stimulation Interferential Current (IFC) Body Location (T1/T2) Duration (Minutes) 15 Intensity 21 Target/Sweep Sweep Patient Position Hooklying Combined With Heat/Cold Hot Pack Comments Contraction Type: IFC Hot Pack to back, Cold Pack to Neck Hot Pack/Cold Pack Treatment Cold Pack Location Neck Patient Position Hooklying Treatment Duration (minutes) 15 Patient Tolerance Good Comments During E-Stim, and in conjunction with MH to back. Hot Pack Location Back Patient Position Hooklying Treatment Duration (minutes) 15 Patient Tolerance Good Comments During E-Stim, and in conjunction with Cold pack to neck. PT-OP-T Assessment and Plan Start: 04/02/21 17:26 Freq: Status: Active Protocol: Document 04/28/21 09:51 LRN (Rec: 04/28/21 10:29 LRN [id number]) Physical Therapy Assessment Goals Four Impairment Constant bilateral upper shoulder pain rated 1-6/10. Impairment Initial Neck & shoulder Disability Index is 14/50 = 20 -39% impaired Short Term Goal (STG) Reduce bilateral upper shoulder pain to intermittent in nature. STG Duration 05/03/21 Usp Goal (LTG) Decrease pain with movement to no greater than 3/10 to improve sleeping ability ( increase episodes of longer nights sleep. LTG Duration 06/16/21 Three Impairment Omari shoulder mobility limiting movement due to pain (1-6/10) Impairment AROM (in deg's) in sitting: L shoulder: flex 153, Ext 60, AB 150, ER (at 0 deg's AB) 37 , IR (behind back) T6. R shoulder: flex 152, Ext 60, AB 155, ER (at 0 deg's AB) 42 , IR (behind back) L3. Initial UE QuickDASH score is 22.5 with 1 question missed ( indicates 20-39% impaired). Short Term Goal (STG) Pt will be independent with a HEP of shoulder PROM & AROM ex 's. STG Duration 05/03/21 Usp Goal (LTG) Improve active bilateral shoulder mobility (in sitting) for improved function per UE QuickDASH score less than 20 ( Initial Score is 22.5 with one question not answered). LTG Duration 06/16/21 Two Impairment Constant neck pain rated 1-6/ 10 Impairment Initial Neck & shoulder Disability Index is 14/50 = 20 -39% impaired Short Term Goal (STG) Reduce neck pain for pt perception of being intermittent in nature with pt able to sit in chair for 2 hours for relaxation or movie watching. STG Duration 05/03/21 Application Development Team Lead Goal (LTG) Decrease pain with improved function per neck/shoulder disability index score 9 or less. LTG Duration 06/16/21 One Impairment Self care HEP needed Short Term Goal (STG) Review and update pt's current HEP. STG Duration 04/10/21 Usp Goal (LTG) Pt will be independent in a self care HEP to promote reduction of neck/shoulder pain and improve neck/shoulder mobility. LTG Duration 06/16/21 Assessment Summary Assessment L UT/MT is tighter with many active trigger points. Decreased PA mobility of T1-T3 vertebra and notable Dowagers Hump. Pt has + response to MH/Ice/EStim with relief of pain after exercise. Physical Therapy Plan Frequency and Duration Frequency of Treatment 2x/Week Plan of Care Start Date 04/03/21 Plan of Care End Date 06/16/21 Next Visit Focus/Plan Next Note Type Treatment Note Next Visit Plan Assess Apley's for IR/ER reaching before & after ROM/ STM treatment. Review pt's existing HEP for strengthening & modify or update as appropriate. If pt brings her ?Stim unit it, decide for appropriateness of use of ice/ ES here in clinic. MH during neck/shoulder PROM ex's, manual therapy to improve thoracic and cervical posturing, posture training, cervical stabilization & Omari shoulder/neck ROM. Ice/EStim (neck, MH to back) if pt finds helpful and her home unit can't provide relief.
--- NOTE | 2021-05-01 16:31 | PT.OTN ---
Current Diagnoses Other chronic pain (05/01/21) Cervicalgia (05/01/21) Low back pain (05/01/21) Pain in thoracic spine (05/01/21) Muscle weakness (generalized) (05/01/21) Physical Therapy Treatment Note PT-OP-A Visit Information Start: 04/02/21 17:26 Freq: Status: Active Protocol: Document 05/01/21 09:52 LRN (Rec: 05/01/21 11:25 LRN [id number]) Out-Patient Physical Therapy Visit Information Visit Information Visit Type Treatment Note Visit Start Time 09:52 Visit Stop Time 10:50 Total Visit Minutes 58 Visit Number 5 Evaluation Information Evaluation Date 04/03/21 Precautions Precautions Controlled HBP, chronic back and neck pain, chronic sinusitis. PT-OP-B Current Condition Start: 04/02/21 17:26 Freq: Status: Active Protocol: Document 04/03/21 12:47 LRN (Rec: 04/03/21 13:35 LRN [id number]) Current Condition History of Current Condition Onset Date November 2020 Current Complaints Constant R neck pain that worsens with head movement. History of Current Condition Ongoing R Neck/bilateral shoulder pain that has progressively to the point she has pain with any movement of her head. At night, sometimes wakes every hour due to pain and sometimes can sleep 5-6 hours. Slight movements can cause increase in R neck pain. Prior Treatments and Tests Physical Therapy 2 yrs ago. 2019 Cortisone spinal injections in the neck that was not helpful. Treatment Goals Patient/Caregiver Goals Pt goal with therapy is to decrease pain to be able to sit in chair for 2 hours for movie, decrease constant to 0/ 10 and decrease pain with movement to 3/10. Prior Functional Status Baseline Function- ADL's Independent Baseline Function- Mobility Independent Baseline Function- Other Able to sit 2+ hours to watch a movie. Limited to light duty (vacuum, dishes, small grocery bags). Sometimes able to sleep. Current Functional Impairments (Reported) Functional Limitations- ADL's Limited sitting of 1 hour due to neck pain. Limited to light duty (vacuum, dishes, small grocery bags). Sleeping disruption variable. Personal Factors Other Personal Factors That May Effect Chronic R sinusitis causes Therapy/Recovery headaches and eye socket pain. PT-OP-C Subjective Start: 04/02/21 17:26 Freq: Status: Active Protocol: Document 05/01/21 09:52 LRN (Rec: 05/01/21 11:25 LRN [id number]) OP-PT Subjective Patient Comments Patient Comments States she was sore in the back of the neck. Brought her E-Stim pads. Pain at end of treatment was 3/10. PT-OP-E Functional Tests Start: 04/02/21 17:26 Freq: Status: Active Protocol: Document 04/28/21 09:51 LRN (Rec: 04/28/21 10:29 LRN [id number]) Functional Tests Apley's Scratch Test Action 1- Left Superior spine of scapula Action 1- Right Superior spine of scapula Action 2- Left T3 Action 2- Right T3 Action 3- Left L4 Action 3- Right L2 PT-OP-H Neuro Start: 04/02/21 17:26 Freq: Status: Active Protocol: Document 04/03/21 12:47 LRN (Rec: 04/03/21 13:35 LRN [id number]) Sensation Evaluation Gross Sensation Gross Sensation WNL Deep Tendon Reflex & Clonus Assessment Deep Tendon Reflex Bilateral Tricep Deep Tendon Reflex 1+ Diminished Bilateral Bicep Deep Tendon Reflex 2+ Normal PT-OP-J Posture/Palpation/Skin Start: 04/02/21 17:26 Freq: Status: Active Protocol: Document 04/03/21 12:47 LRN (Rec: 04/03/21 13:35 LRN [id number]) Posture Evaluation Position Standing Head/C-Spine Posture Forward Head Shoulder Posture (R) Forward,(L) Elevated Comments Posture Comments Dowagers hump, Straighten upper thoracic spine. Palpation Assessment Location Upper thoracic spine Palpation Location T/S Palpation Findings Soft Tissue Tightness,Muscle Guarding Upper shoulders Palpation Location UT's Palpation Findings Soft Tissue Tightness, Tenderness Neck Palpation Location Posterior & R lateral neck Palpation Findings Soft Tissue Tightness, Tenderness PT-OP-K Range of Motion Start: 04/02/21 17:26 Freq: Status: Active Protocol: Document 04/03/21 12:47 LRN (Rec: 04/03/21 13:35 LRN [id number]) Cervical Spine Range of Motion Cervical Spine Active Degrees Testing Position Sitting Flexion 38 Extension 40 Rotation Left 52 Rotation Right 55 Lateral Flexion Left 27 Lateral Flexion Right 25 ROM Limitations Soft Tissue Tightness,Pain Shoulder Goniometric Range of Motion Shoulder Right Active Testing Position Sitting Flexion 152 Extension 60 Abduction 155 External Rotation at 0 degrees Abduction 42 Internal Rotation Behind Back (text) L3 Left Active Testing Position Sitting Flexion 153 Extension 60 Abduction 150 External Rotation at 0 degrees Abduction 37 Internal Rotation Behind Back (text) T6 PT-OP-M Strength Start: 04/02/21 17:26 Freq: Status: Active Protocol: Document 04/03/21 12:47 LRN (Rec: 04/03/21 13:35 LRN [id number]) Cervical Spine Strength Cervical Spine Manual Muscle Testing Flexion (C1-2) 4 Good Extension 5 Normal Shoulder Strength Shoulder Manual Muscle Testing Right Flexion 4 Good Abduction (C5) 4+ Good+ External Rotation 4- Good- Internal Rotation 4 Good Left Flexion 4 Good Abduction (C5) 4+ Good+ External Rotation 4 Good Internal Rotation 5 Normal PT-OP-Q Treatments Start: 04/02/21 17:26 Freq: Status: Active Protocol: Document 05/01/21 09:52 LRN (Rec: 05/01/21 11:25 LRN [id number]) Therapeutic Exercises Sitting Exercises Neck ROM stretch Sitting Exercise Name AROM (SB, Rot) stretch Side bilateral Reps/Minutes 8' Comments Pt needed review with cuing given Shoulder horiz AD stretch Sitting Exercise Name Horiz AD stretch Side bilateral Comments Apley test measurment Shoulder IR stretch Sitting Exercise Name IR stretch Side bilateral Comments Apley test measurment Shoulder ER stretch Sitting Exercise Name ER stretch Side bilateral Comments Apley test measurment Manual Therapy Treatment Soft Tissue Mobilization Neck Body Location L>R, Bilateral Paraspinals, UT /MT Mobilization Type Myofascial Release,Sustained Pressure,Trigger Point Release Intensity/Depth Moderate Body Position Prone Comments Pillow above breasts Joint Mobilizations T1-T3 Joint T1-T3 Direction PA, Rot Grade II Body Position Supine Reps/Duration 15' Self-Care/Home Management Treatment Education Other Education Reviewed pt's self E-Stim/ massage unit and discussed pros/cons of benefit and discussed further the Plan of care using modalities in clinic. Pt agreeable to use clinic modalities to determine if helpful. PT-OP-R Modalities Start: 04/02/21 17:26 Freq: Status: Active Protocol: Document 05/01/21 09:52 LRN (Rec: 05/01/21 11:25 LRN [id number]) Electric Stimulation Electric Stimulation Interferential Current (IFC) Body Location (T1/T2) Duration (Minutes) 15 Intensity 22 Target/Sweep Sweep Patient Position Hooklying Combined With Heat/Cold Hot Pack Comments Contraction Type: IFC Hot Pack to back, Cold Pack to Neck Hot Pack/Cold Pack Treatment Cold Pack Location Neck Patient Position Hooklying Treatment Duration (minutes) 15 Patient Tolerance Good Comments During E-Stim, and in conjunction with MH to back. Hot Pack Location Back Patient Position Hooklying Treatment Duration (minutes) 15 Patient Tolerance Good Comments During E-Stim, and in conjunction with Cold pack to neck. PT-OP-T Assessment and Plan Start: 04/02/21 17:26 Freq: Status: Active Protocol: Document 05/01/21 09:52 LRN (Rec: 05/01/21 11:25 LRN [id number]) Physical Therapy Assessment Goals Four Impairment Constant bilateral upper shoulder pain rated 1-6/10. Impairment Initial Neck & shoulder Disability Index is 14/50 = 20 -39% impaired Short Term Goal (STG) Reduce bilateral upper shoulder pain to intermittent in nature. STG Duration 05/03/21 Assisted Goal (LTG) Decrease pain with movement to no greater than 3/10 to improve sleeping ability ( increase episodes of longer nights sleep. LTG Duration 06/16/21 Three Impairment Omari shoulder mobility limiting movement due to pain (1-6/10) Impairment AROM (in deg's) in sitting: L shoulder: flex 153, Ext 60, AB 150, ER (at 0 deg's AB) 37 , IR (behind back) T6. R shoulder: flex 152, Ext 60, AB 155, ER (at 0 deg's AB) 42 , IR (behind back) L3. Initial UE QuickDASH score is 22.5 with 1 question missed ( indicates 20-39% impaired). Short Term Goal (STG) Pt will be independent with a HEP of shoulder PROM & AROM ex 's. STG Duration 05/03/21 Wire Coating Machine Operator Goal (LTG) Improve active bilateral shoulder mobility (in sitting) for improved function per UE QuickDASH score less than 20 ( Initial Score is 22.5 with one question not answered). LTG Duration 06/16/21 Two Impairment Constant neck pain rated 1-6/ 10 Impairment Initial Neck & shoulder Disability Index is 14/50 = 20 -39% impaired Short Term Goal (STG) Reduce neck pain for pt perception of being intermittent in nature with pt able to sit in chair for 2 hours for relaxation or movie watching. STG Duration 05/03/21 Wire Coating Machine Operator Goal (LTG) Decrease pain with improved function per neck/shoulder disability index score 9 or less. LTG Duration 06/16/21 One Impairment Self care HEP needed Short Term Goal (STG) Review and update pt's current HEP. STG Duration 04/10/21 Wire Coating Machine Operator Goal (LTG) Pt will be independent in a self care HEP to promote reduction of neck/shoulder pain and improve neck/shoulder mobility. LTG Duration 06/16/21 Assessment Summary Assessment Neck mobility restricted due to decreased C/S & upper T/S mobility (notable Dowagers hump). Pt tight with active trigger points in R > L UT/MT today; therefore pt showing variable sides of soft tissue dysfunction. Pt pain at end of treatment was 3/10. Pt's home E-Stim unit was more a heat/vibratory stim unit; therefore use of IFES for joint mobilization in upper T/S region is appropriate to improve cervical mobility and decrease neck/shoulder pain. Physical Therapy Plan Frequency and Duration Frequency of Treatment 2x/Week Plan of Care Start Date 04/03/21 Plan of Care End Date 06/16/21 Next Visit Focus/Plan Next Note Type Treatment Note Next Visit Plan Assess Apley's for IR/ER reaching before treatment to note progress. Review pt's existing HEP for strengthening & modify or update as appropriate. MH during neck/ shoulder PROM ex's, manual therapy to improve thoracic and cervical posturing, posture training, cervical stabilization & Omari shoulder/ neck ROM. Ice/EStim (neck, MH to back) if pt finds helpful.
--- NOTE | 2021-05-08 16:45 | PT.OTN ---
Current Diagnoses Other chronic pain (05/08/21) Cervicalgia (05/08/21) Low back pain (05/08/21) Pain in thoracic spine (05/08/21) Muscle weakness (generalized) (05/08/21) Physical Therapy Treatment Note PT-OP-A Visit Information Start: 04/02/21 17:26 Freq: Status: Active Protocol: Document 05/08/21 08:58 LRN (Rec: 05/08/21 09:51 LRN [id number]) Out-Patient Physical Therapy Visit Information Visit Information Visit Type Treatment Note Visit Start Time 08:58 Visit Stop Time 09:00 Total Visit Minutes 62 Visit Number 6 Evaluation Information Evaluation Date 04/03/21 Precautions Precautions Controlled HBP, chronic back and neck pain, chronic sinusitis. PT-OP-B Current Condition Start: 04/02/21 17:26 Freq: Status: Active Protocol: Document 04/03/21 12:47 LRN (Rec: 04/03/21 13:35 LRN [id number]) Current Condition History of Current Condition Onset Date November 2020 Current Complaints Constant R neck pain that worsens with head movement. History of Current Condition Ongoing R Neck/bilateral shoulder pain that has progressively to the point she has pain with any movement of her head. At night, sometimes wakes every hour due to pain and sometimes can sleep 5-6 hours. Slight movements can cause increase in R neck pain. Prior Treatments and Tests Physical Therapy 2 yrs ago. 2019 Cortisone spinal injections in the neck that was not helpful. Treatment Goals Patient/Caregiver Goals Pt goal with therapy is to decrease pain to be able to sit in chair for 2 hours for movie, decrease constant to 0/ 10 and decrease pain with movement to 3/10. Prior Functional Status Baseline Function- ADL's Independent Baseline Function- Mobility Independent Baseline Function- Other Able to sit 2+ hours to watch a movie. Limited to light duty (vacuum, dishes, small grocery bags). Sometimes able to sleep. Current Functional Impairments (Reported) Functional Limitations- ADL's Limited sitting of 1 hour due to neck pain. Limited to light duty (vacuum, dishes, small grocery bags). Sleeping disruption variable. Personal Factors Other Personal Factors That May Effect Chronic R sinusitis causes Therapy/Recovery headaches and eye socket pain. PT-OP-C Subjective Start: 04/02/21 17:26 Freq: Status: Active Protocol: Document 05/08/21 08:58 LRN (Rec: 05/08/21 09:51 LRN [id number]) OP-PT Subjective Patient Comments Patient Comments Same as last time. Wakes in morning in ricardo pain at least 4-5/10, now pain 3-4/10. Always at a 3/10. PT-OP-E Functional Tests Start: 04/02/21 17:26 Freq: Status: Active Protocol: Document 05/08/21 08:58 LRN (Rec: 05/08/21 09:51 LRN [id number]) Functional Tests Apley's Scratch Test Action 1- Left Superior angle of scapula Action 1- Right Superior angle of scapula Action 2- Left T3 Action 2- Right T3 Action 3- Left T11 Action 3- Right L5 PT-OP-H Neuro Start: 04/02/21 17:26 Freq: Status: Active Protocol: Document 04/03/21 12:47 LRN (Rec: 04/03/21 13:35 LRN [id number]) Sensation Evaluation Gross Sensation Gross Sensation WNL Deep Tendon Reflex & Clonus Assessment Deep Tendon Reflex Bilateral Tricep Deep Tendon Reflex 1+ Diminished Bilateral Bicep Deep Tendon Reflex 2+ Normal PT-OP-J Posture/Palpation/Skin Start: 04/02/21 17:26 Freq: Status: Active Protocol: Document 04/03/21 12:47 LRN (Rec: 04/03/21 13:35 LRN [id number]) Posture Evaluation Position Standing Head/C-Spine Posture Forward Head Shoulder Posture (R) Forward,(L) Elevated Comments Posture Comments Dowagers hump, Straighten upper thoracic spine. Palpation Assessment Location Upper thoracic spine Palpation Location T/S Palpation Findings Soft Tissue Tightness,Muscle Guarding Upper shoulders Palpation Location UT's Palpation Findings Soft Tissue Tightness, Tenderness Neck Palpation Location Posterior & R lateral neck Palpation Findings Soft Tissue Tightness, Tenderness PT-OP-K Range of Motion Start: 04/02/21 17:26 Freq: Status: Active Protocol: Document 04/03/21 12:47 LRN (Rec: 04/03/21 13:35 LRN [id number]) Cervical Spine Range of Motion Cervical Spine Active Degrees Testing Position Sitting Flexion 38 Extension 40 Rotation Left 52 Rotation Right 55 Lateral Flexion Left 27 Lateral Flexion Right 25 ROM Limitations Soft Tissue Tightness,Pain Shoulder Goniometric Range of Motion Shoulder Right Active Testing Position Sitting Flexion 152 Extension 60 Abduction 155 External Rotation at 0 degrees Abduction 42 Internal Rotation Behind Back (text) L3 Left Active Testing Position Sitting Flexion 153 Extension 60 Abduction 150 External Rotation at 0 degrees Abduction 37 Internal Rotation Behind Back (text) T6 PT-OP-M Strength Start: 04/02/21 17:26 Freq: Status: Active Protocol: Document 04/03/21 12:47 LRN (Rec: 04/03/21 13:35 LRN [id number]) Cervical Spine Strength Cervical Spine Manual Muscle Testing Flexion (C1-2) 4 Good Extension 5 Normal Shoulder Strength Shoulder Manual Muscle Testing Right Flexion 4 Good Abduction (C5) 4+ Good+ External Rotation 4- Good- Internal Rotation 4 Good Left Flexion 4 Good Abduction (C5) 4+ Good+ External Rotation 4 Good Internal Rotation 5 Normal PT-OP-Q Treatments Start: 04/02/21 17:26 Freq: Status: Active Protocol: Document 05/08/21 08:58 LRN (Rec: 05/08/21 09:51 LRN [id number]) Therapeutic Exercises Supine Exercises Neck Elong-neck stab Supine Exercise Name Neck Elong w/alternate arm lifts & horiz AB/AD. Side bilateral Reps/Minutes 15x each Comments Extra time w/phys cuing for upper thoracic ext Neck Elong w/omar hold Supine Exercise Name Omar neck elong hold off fingers Reps/Minutes 3 hold x 5 Upper thoracic ext Supine Exercise Name Arms in V, pillow under each arm/shoulder for shoulder EXT Side bilateral Reps/Minutes 3 hold x 5 Neck Elongation Supine Exercise Name Neck Elongation/Chin Tuck Reps/Minutes 3' Shoulder flex Supine Exercise Name Shoulder flex stretch with cane Side bilateral Equipment Used Cane Reps/Minutes 10 - 3' ROM neck Supine Exercise Name AAROM rotation Side bilateral Reps/Minutes 3' Prone Exercises Upper thoracic ext Prone Exercise Name Superman pose Side bilateral Reps/Minutes 3 Hold x 5 Comments Extra time w/phys cuing for upper thoracic ext Sitting Exercises Upper body ext Sitting Exercise Name Forward rolling on Lg [place] TB (on step stool) Side bilateral Reps/Minutes 3 Hold x 8 Upper body trunk rot Sitting Exercise Name Arms folded at 90 deg flex f/b rot Side bilateral Reps/Minutes 3 Hold x 5 each Neck Elongation Sitting Exercise Name Neck Elongation Reps/Minutes 3 Hold x 8 Manual Therapy Treatment Joint Mobilizations T1-T3 Joint T1-T3 Direction Gentle PA Oscillations Body Position Supine Reps/Duration 5' Manual Techniques PROM Shoulders Type Shoulder Flex PT-OP-R Modalities Start: 04/02/21 17:26 Freq: Status: Active Protocol: Document 05/08/21 08:58 LRN (Rec: 05/08/21 09:51 LRN [id number]) Electric Stimulation Electric Stimulation Interferential Current (IFC) Body Location (T1/T2) Duration (Minutes) 15 Intensity 16 Target/Sweep Sweep Patient Position Hooklying Combined With Heat/Cold Hot Pack Comments Contraction Type: IFC Hot Pack to back, Cold Pack to Neck Hot Pack/Cold Pack Treatment Cold Pack Location Neck Patient Position Hooklying Treatment Duration (minutes) 15 Patient Tolerance Good Comments During E-Stim, and in conjunction with MH to back. Hot Pack Location Back Patient Position Hooklying Treatment Duration (minutes) 15 Patient Tolerance Good Comments During E-Stim, and in conjunction with Cold pack to neck. PT-OP-T Assessment and Plan Start: 04/02/21 17:26 Freq: Status: Active Protocol: Document 05/08/21 08:58 LRN (Rec: 05/08/21 09:51 LRN [id number]) Physical Therapy Assessment Goals Four Impairment Constant bilateral upper shoulder pain rated 1-6/10. Impairment Initial Neck & shoulder Disability Index is 14/50 = 20 -39% impaired Short Term Goal (STG) Reduce bilateral upper shoulder pain to intermittent in nature. STG Duration 05/03/21 Developer Evangelist Goal (LTG) Decrease pain with movement to no greater than 3/10 to improve sleeping ability ( increase episodes of longer nights sleep. LTG Duration 06/16/21 Three Impairment Omari shoulder mobility limiting movement due to pain (1-6/10) Impairment AROM (in deg's) in sitting: L shoulder: flex 153, Ext 60, AB 150, ER (at 0 deg's AB) 37 , IR (behind back) T6. R shoulder: flex 152, Ext 60, AB 155, ER (at 0 deg's AB) 42 , IR (behind back) L3. Initial UE QuickDASH score is 22.5 with 1 question missed ( indicates 20-39% impaired). Short Term Goal (STG) Pt will be independent with a HEP of shoulder PROM & AROM ex 's. STG Duration 05/03/21 Detention Goal (LTG) Improve active bilateral shoulder mobility (in sitting) for improved function per UE QuickDASH score less than 20 ( Initial Score is 22.5 with one question not answered). LTG Duration 06/16/21 Two Impairment Constant neck pain rated 1-6/ 10 Impairment Initial Neck & shoulder Disability Index is 14/50 = 20 -39% impaired Short Term Goal (STG) Reduce neck pain for pt perception of being intermittent in nature with pt able to sit in chair for 2 hours for relaxation or movie watching. STG Duration 05/03/21 Detention Goal (LTG) Decrease pain with improved function per neck/shoulder disability index score 9 or less. LTG Duration 06/16/21 One Impairment Self care HEP needed Short Term Goal (STG) Review and update pt's current HEP. STG Duration 04/10/21 Detention Goal (LTG) Pt will be independent in a self care HEP to promote reduction of neck/shoulder pain and improve neck/shoulder mobility. LTG Duration 06/16/21 Assessment Summary Assessment Good tolerance to new ex's. Pt appeared to have E-Stim too high last visit; therefore had discomfort the next day after E-Stim last session. Physical Therapy Plan Frequency and Duration Frequency of Treatment 2x/Week Plan of Care Start Date 04/03/21 Plan of Care End Date 06/16/21 Next Visit Focus/Plan Next Note Type Treatment Note Next Visit Plan Assess Apley's for IR/ER reaching before treatment to note progress. Assess Neck pain and pt's tolerance to sitting. Assess shoulder pain (constant or intermittent). Review pt's existing HEP for strengthening & modify or update as appropriate, Check for self care HEP of shoulder AROM & PROM ex's. MH during neck/shoulder PROM ex's, manual therapy to improve thoracic and cervical posturing, posture training, cervical stabilization & Omari shoulder/neck ROM. Ice/EStim (neck, MH to back) if pt finds helpful.
--- NOTE | 2021-05-12 10:11 | PT.OTN ---
Current Diagnoses Other chronic pain (05/12/21) Cervicalgia (05/12/21) Low back pain (05/12/21) Pain in thoracic spine (05/12/21) Muscle weakness (generalized) (05/12/21) Physical Therapy Treatment Note PT-OP-A Visit Information Start: 04/02/21 17:26 Freq: Status: Active Protocol: Document 05/12/21 09:03 LRN (Rec: 05/12/21 10:09 LRN [id number]) Out-Patient Physical Therapy Visit Information Visit Information Visit Type Treatment Note Visit Start Time 09:03 Visit Stop Time 10:00 Total Visit Minutes 57 Visit Number 7 PT-OP-B Current Condition Start: 04/02/21 17:26 Freq: Status: Active Protocol: Document 04/03/21 12:47 LRN (Rec: 04/03/21 13:35 LRN [id number]) Current Condition History of Current Condition Onset Date November 2020 Current Complaints Constant R neck pain that worsens with head movement. History of Current Condition Ongoing R Neck/bilateral shoulder pain that has progressively to the point she has pain with any movement of her head. At night, sometimes wakes every hour due to pain and sometimes can sleep 5-6 hours. Slight movements can cause increase in R neck pain. Prior Treatments and Tests Physical Therapy 2 yrs ago. 2019 Cortisone spinal injections in the neck that was not helpful. Treatment Goals Patient/Caregiver Goals Pt goal with therapy is to decrease pain to be able to sit in chair for 2 hours for movie, decrease constant to 0/ 10 and decrease pain with movement to 3/10. Prior Functional Status Baseline Function- ADL's Independent Baseline Function- Mobility Independent Baseline Function- Other Able to sit 2+ hours to watch a movie. Limited to light duty (vacuum, dishes, small grocery bags). Sometimes able to sleep. Current Functional Impairments (Reported) Functional Limitations- ADL's Limited sitting of 1 hour due to neck pain. Limited to light duty (vacuum, dishes, small grocery bags). Sleeping disruption variable. Personal Factors Other Personal Factors That May Effect Chronic R sinusitis causes Therapy/Recovery headaches and eye socket pain. PT-OP-C Subjective Start: 04/02/21 17:26 Freq: Status: Active Protocol: Document 05/12/21 09:03 LRN (Rec: 05/12/21 10:09 LRN [id number]) OP-PT Subjective Patient Comments Patient Comments Cervicothoracic junction pain is 3-4/10. Annoying pain. Shoulder pain is not as bad, can swing R arm around to the back. PT-OP-E Functional Tests Start: 04/02/21 17:26 Freq: Status: Active Protocol: Document 05/12/21 09:03 LRN (Rec: 05/12/21 10:09 LRN [id number]) Functional Tests Apley's Scratch Test Action 1- Left Superior angle of scapula Action 1- Right Lateral angle of scapula Action 2- Left T4 Action 2- Right T3 Action 3- Left T8 Action 3- Right L2 PT-OP-H Neuro Start: 04/02/21 17:26 Freq: Status: Active Protocol: Document 04/03/21 12:47 LRN (Rec: 04/03/21 13:35 LRN [id number]) Sensation Evaluation Gross Sensation Gross Sensation WNL Deep Tendon Reflex & Clonus Assessment Deep Tendon Reflex Bilateral Tricep Deep Tendon Reflex 1+ Diminished Bilateral Bicep Deep Tendon Reflex 2+ Normal PT-OP-J Posture/Palpation/Skin Start: 04/02/21 17:26 Freq: Status: Active Protocol: Document 04/03/21 12:47 LRN (Rec: 04/03/21 13:35 LRN [id number]) Posture Evaluation Position Standing Head/C-Spine Posture Forward Head Shoulder Posture (R) Forward,(L) Elevated Comments Posture Comments Dowagers hump, Straighten upper thoracic spine. Palpation Assessment Location Upper thoracic spine Palpation Location T/S Palpation Findings Soft Tissue Tightness,Muscle Guarding Upper shoulders Palpation Location UT's Palpation Findings Soft Tissue Tightness, Tenderness Neck Palpation Location Posterior & R lateral neck Palpation Findings Soft Tissue Tightness, Tenderness PT-OP-K Range of Motion Start: 04/02/21 17:26 Freq: Status: Active Protocol: Document 04/03/21 12:47 LRN (Rec: 04/03/21 13:35 LRN [id number]) Cervical Spine Range of Motion Cervical Spine Active Degrees Testing Position Sitting Flexion 38 Extension 40 Rotation Left 52 Rotation Right 55 Lateral Flexion Left 27 Lateral Flexion Right 25 ROM Limitations Soft Tissue Tightness,Pain Shoulder Goniometric Range of Motion Shoulder Right Active Testing Position Sitting Flexion 152 Extension 60 Abduction 155 External Rotation at 0 degrees Abduction 42 Internal Rotation Behind Back (text) L3 Left Active Testing Position Sitting Flexion 153 Extension 60 Abduction 150 External Rotation at 0 degrees Abduction 37 Internal Rotation Behind Back (text) T6 PT-OP-M Strength Start: 04/02/21 17:26 Freq: Status: Active Protocol: Document 04/03/21 12:47 LRN (Rec: 04/03/21 13:35 LRN [id number]) Cervical Spine Strength Cervical Spine Manual Muscle Testing Flexion (C1-2) 4 Good Extension 5 Normal Shoulder Strength Shoulder Manual Muscle Testing Right Flexion 4 Good Abduction (C5) 4+ Good+ External Rotation 4- Good- Internal Rotation 4 Good Left Flexion 4 Good Abduction (C5) 4+ Good+ External Rotation 4 Good Internal Rotation 5 Normal PT-OP-Q Treatments Start: 04/02/21 17:26 Freq: Status: Active Protocol: Document 05/12/21 09:03 LRN (Rec: 05/12/21 10:09 LRN [id number]) Cardio Equipment Recumbent Elliptical ([employer]) Duration (Minutes) 6 Resistance 3 Other Seat 6, Extra time taken for proper positioning Therapeutic Exercises Sitting Exercises Neck Elongation Sitting Exercise Name Neck Elongation Reps/Minutes 5 Hold x 10 Neck ROM stretch Sitting Exercise Name AROM (SB, Rot) stretch Side bilateral Reps/Minutes 16' Comments Rot L tighter. Pt needs phys cuing and keeping on task. Shoulder horiz AD stretch Sitting Exercise Name Horiz AD stretch Side bilateral Comments Apley measurment after stretch Shoulder IR stretch Sitting Exercise Name IR stretch Side bilateral Comments Apley measurment Shoulder ER stretch Sitting Exercise Name ER stretch Side bilateral Comments Apley measurment Manual Therapy Treatment Soft Tissue Mobilization T1-T3 Body Location PA of T1-T3 SP and L TP Mobilization Type Myofascial Release Intensity/Depth Moderate Body Position Supine Comments Pillows underneath. Anterior pressure in: upper sternum, Sternocostal joints & TP of R lower Cervical spine. PT-OP-R Modalities Start: 04/02/21 17:26 Freq: Status: Active Protocol: Document 05/12/21 09:03 LRN (Rec: 05/12/21 10:09 LRN [id number]) Hot Pack/Cold Pack Treatment Cold Pack Location Neck Patient Position Hooklying Treatment Duration (minutes) 15 Patient Tolerance Good Comments During E-Stim, and in conjunction with MH to back. Hot Pack Location Back Patient Position Hooklying Treatment Duration (minutes) 15 Patient Tolerance Good Comments During E-Stim, and in conjunction with Cold pack to neck. PT-OP-T Assessment and Plan Start: 04/02/21 17:26 Freq: Status: Active Protocol: Document 05/12/21 09:03 LRN (Rec: 05/12/21 10:09 LRN [id number]) Physical Therapy Assessment Goals Four Impairment Constant bilateral upper shoulder pain rated 1-6/10. Impairment Initial Neck & shoulder Disability Index is 14/50 = 20 -39% impaired Short Term Goal (STG) Reduce bilateral upper shoulder pain to intermittent in nature. STG Duration 05/03/21 Dairy Feed Worker Goal (LTG) Decrease pain with movement to no greater than 3/10 to improve sleeping ability ( increase episodes of longer nights sleep. (05/12/21: Upper back pain 3- 4/10) LTG Duration 06/16/21 (05/12/21: Improving) Three Impairment Omari shoulder mobility limiting movement due to pain (1-6/10) Impairment AROM (in deg's) in sitting: L shoulder: flex 153, Ext 60, AB 150, ER (at 0 deg's AB) 37 , IR (behind back) T6. R shoulder: flex 152, Ext 60, AB 155, ER (at 0 deg's AB) 42 , IR (behind back) L3. Initial UE QuickDASH score is 22.5 with 1 question missed ( indicates 20-39% impaired). Short Term Goal (STG) Pt will be independent with a HEP of shoulder PROM & AROM ex 's. STG Duration 05/03/21 Dairy Feed Worker Goal (LTG) Improve active bilateral shoulder mobility (in sitting) for improved function per UE QuickDASH score less than 20 ( Initial Score is 22.5 with one question not answered). LTG Duration 06/16/21 Two Impairment Constant neck pain rated 1-6/ 10 Impairment Initial Neck & shoulder Disability Index is 14/50 = 20 -39% impaired Short Term Goal (STG) Reduce neck pain for pt perception of being intermittent in nature with pt able to sit in chair for 2 hours for relaxation or movie watching. STG Duration 05/03/21 Correction Goal (LTG) Decrease pain with improved function per neck/shoulder disability index score 9 or less. LTG Duration 06/16/21 One Impairment Self care HEP needed Short Term Goal (STG) Review and update pt's current HEP. (04/17/21: Reviewed HEP of neck/shoulder stretches to update current HEP). STG Duration 04/10/21 (04/17/21: Goal was partially met for neck/ shoulder stretches) Correction Goal (LTG) Pt will be independent in a self care HEP to promote reduction of neck/shoulder pain and improve neck/shoulder mobility. LTG Duration 06/16/21 (04/17/21: Goal was partially met for neck/ shoulder stretches) Assessment Summary Assessment No c/o increased pain with exercise of UE's on [employer]. Pt had good response to STM, but pt not able to identify any type of change. Pt doesn' t appear to have good body awareness, post therapy with no indication given as to any changes with treatment. Physical Therapy Plan Frequency and Duration Frequency of Treatment 2x/Week Plan of Care Start Date 04/03/21 Plan of Care End Date 06/16/21 Next Visit Focus/Plan Next Note Type Treatment Note Next Visit Plan Assess response to treatment last session ( Neck/constant vs intermittent shoulders pain and pt's tolerance to sitting ). & assess Apley's for IR/ER reaching before treatment to note progress. Review pt's existing HEP for strengthening & modify or update as appropriate, Check for self care HEP of shoulder strengthening and adherence to AROM/PROM ex's. MH during neck/shoulder PROM ex's, manual therapy to improve thoracic and cervical posturing, posture training, start cervical stabilization & Omari shoulder/neck ROM. Ice/ EStim (neck, MH to back) if pt helpful.
--- NOTE | 2021-05-15 15:37 | PT.OTN ---
Current Diagnoses Other chronic pain (05/15/21) Cervicalgia (05/15/21) Low back pain (05/15/21) Pain in thoracic spine (05/15/21) Muscle weakness (generalized) (05/15/21) Physical Therapy Treatment Note PT-OP-A Visit Information Start: 04/02/21 17:26 Freq: Status: Active Protocol: Document 05/15/21 09:06 LRN (Rec: 05/15/21 10:41 LRN [id number]) Out-Patient Physical Therapy Visit Information Visit Information Visit Type Treatment Note Visit Start Time 09:06 Visit Stop Time 09:54 Total Visit Minutes 48 Visit Number 8 Evaluation Information Evaluation Date 04/03/21 Precautions Precautions Controlled HBP, chronic back and neck pain, chronic sinusitis. PT-OP-B Current Condition Start: 04/02/21 17:26 Freq: Status: Active Protocol: Document 04/03/21 12:47 LRN (Rec: 04/03/21 13:35 LRN [id number]) Current Condition History of Current Condition Onset Date November 2020 Current Complaints Constant R neck pain that worsens with head movement. History of Current Condition Ongoing R Neck/bilateral shoulder pain that has progressively to the point she has pain with any movement of her head. At night, sometimes wakes every hour due to pain and sometimes can sleep 5-6 hours. Slight movements can cause increase in R neck pain. Prior Treatments and Tests Physical Therapy 2 yrs ago. 2019 Cortisone spinal injections in the neck that was not helpful. Treatment Goals Patient/Caregiver Goals Pt goal with therapy is to decrease pain to be able to sit in chair for 2 hours for movie, decrease constant to 0/ 10 and decrease pain with movement to 3/10. Prior Functional Status Baseline Function- ADL's Independent Baseline Function- Mobility Independent Baseline Function- Other Able to sit 2+ hours to watch a movie. Limited to light duty (vacuum, dishes, small grocery bags). Sometimes able to sleep. Current Functional Impairments (Reported) Functional Limitations- ADL's Limited sitting of 1 hour due to neck pain. Limited to light duty (vacuum, dishes, small grocery bags). Sleeping disruption variable. Personal Factors Other Personal Factors That May Effect Chronic R sinusitis causes Therapy/Recovery headaches and eye socket pain. PT-OP-C Subjective Start: 04/02/21 17:26 Freq: Status: Active Protocol: Document 05/15/21 09:06 LRN (Rec: 05/15/21 10:41 LRN [id number]) OP-PT Subjective Patient Comments Patient Comments Cervicothoracic junction constant pain is 3-4/10. Had the worst sinus headache. R shoulder is better, still comes and goes. Before couldn 't hardly move the R shoulder, now can move it. PT-OP-E Functional Tests Start: 04/02/21 17:26 Freq: Status: Active Protocol: Document 05/12/21 09:03 LRN (Rec: 05/12/21 10:09 LRN [id number]) Functional Tests Apley's Scratch Test Action 1- Left Superior angle of scapula Action 1- Right Lateral angle of scapula Action 2- Left T4 Action 2- Right T3 Action 3- Left T8 Action 3- Right L2 PT-OP-H Neuro Start: 04/02/21 17:26 Freq: Status: Active Protocol: Document 04/03/21 12:47 LRN (Rec: 04/03/21 13:35 LRN [id number]) Sensation Evaluation Gross Sensation Gross Sensation WNL Deep Tendon Reflex & Clonus Assessment Deep Tendon Reflex Bilateral Tricep Deep Tendon Reflex 1+ Diminished Bilateral Bicep Deep Tendon Reflex 2+ Normal PT-OP-J Posture/Palpation/Skin Start: 04/02/21 17:26 Freq: Status: Active Protocol: Document 04/03/21 12:47 LRN (Rec: 04/03/21 13:35 LRN [id number]) Posture Evaluation Position Standing Head/C-Spine Posture Forward Head Shoulder Posture (R) Forward,(L) Elevated Comments Posture Comments Dowagers hump, Straighten upper thoracic spine. Palpation Assessment Location Upper thoracic spine Palpation Location T/S Palpation Findings Soft Tissue Tightness,Muscle Guarding Upper shoulders Palpation Location UT's Palpation Findings Soft Tissue Tightness, Tenderness Neck Palpation Location Posterior & R lateral neck Palpation Findings Soft Tissue Tightness, Tenderness PT-OP-K Range of Motion Start: 04/02/21 17:26 Freq: Status: Active Protocol: Document 05/15/21 09:06 LRN (Rec: 05/15/21 10:41 LRN [id number]) Shoulder Goniometric Range of Motion Shoulder Right Active Testing Position Sitting Flexion 152 Extension 60 Abduction 155 External Rotation at 0 degrees Abduction 42 Internal Rotation Behind Back (text) L3 PT-OP-M Strength Start: 04/02/21 17:26 Freq: Status: Active Protocol: Document 04/03/21 12:47 LRN (Rec: 04/03/21 13:35 LRN [id number]) Cervical Spine Strength Cervical Spine Manual Muscle Testing Flexion (C1-2) 4 Good Extension 5 Normal Shoulder Strength Shoulder Manual Muscle Testing Right Flexion 4 Good Abduction (C5) 4+ Good+ External Rotation 4- Good- Internal Rotation 4 Good Left Flexion 4 Good Abduction (C5) 4+ Good+ External Rotation 4 Good Internal Rotation 5 Normal PT-OP-Q Treatments Start: 04/02/21 17:26 Freq: Status: Active Protocol: Document 05/15/21 09:06 LRN (Rec: 05/15/21 10:41 LRN [id number]) Cardio Equipment Recumbent Elliptical (BiodAgreeYa Mobility - Onvelop) Duration (Minutes) 7 Resistance 3 Seat Position 6 Therapeutic Exercises Sitting Exercises Neck Elongation Sitting Exercise Name Neck Elongation review Reps/Minutes 1' Neck ROM stretch Sitting Exercise Name Reviewed HEP: AROM (SB, Rot) Side bilateral Reps/Minutes 16' Comments Rot L tighter. Pt needs phys cuing and keeping on task. Standing Exercises Shoulder IR stretclh Standing Exercise Name IR stretch behind back with belt Side bilateral Equipment Used Gait belt Reps/Minutes 5' Pec Stretch Standing Exercise Name Corner pec stretch Side bilateral Reps/Minutes 5' Comments Extra time for finding max position Shoulder flex stretch Standing Exercise Name Doorway Side bilateral Reps/Minutes 5' Comments Extra time for review of positioning in a couple different locations Manual Therapy Treatment Soft Tissue Mobilization T1-T3 Body Location PA of T1-T3 SP and L TP Mobilization Type Myofascial Release Intensity/Depth Moderate Body Position Supine Comments Pillows underneath. Anterior pressure in: upper sternum, Sternocostal joints & TP of R lower Cervical spine. PT-OP-R Modalities Start: 04/02/21 17:26 Freq: Status: Active Protocol: Document 05/12/21 09:03 LRN (Rec: 05/12/21 10:09 LRN [id number]) Hot Pack/Cold Pack Treatment Cold Pack Location Neck Patient Position Hooklying Treatment Duration (minutes) 15 Patient Tolerance Good Comments During E-Stim, and in conjunction with to back. Hot Pack Location Back Patient Position Hooklying Treatment Duration (minutes) 15 Patient Tolerance Good Comments During E-Stim, and in conjunction with Cold pack to neck. PT-OP-T Assessment and Plan Start: 04/02/21 17:26 Freq: Status: Active Protocol: Document 05/15/21 09:06 LRN (Rec: 05/15/21 10:41 LRN [id number]) Physical Therapy Assessment Goals Four Impairment Constant bilateral upper shoulder pain rated 1-6/10. Impairment Initial Neck & shoulder Disability Index is 14/50 = 20 -39% impaired Short Term Goal (STG) Reduce bilateral upper shoulder pain to intermittent in nature. STG Duration 05/03/21 (05/15/21: MET GOAL ) Wine Steward/Stewardess Goal (LTG) Decrease pain with movement to no greater than 3/10 to improve sleeping ability ( increase episodes of longer nights sleep. (05/12/21: Upper back pain 3- 4/10) LTG Duration 06/16/21 (05/12/21: Improving) Three Impairment Omari shoulder mobility limiting movement due to pain (1-6/10) Impairment AROM (in deg's) in sitting: L shoulder: flex 153, Ext 60, AB 150, ER (at 0 deg's AB) 37 , IR (behind back) T6. R shoulder: flex 152, Ext 60, AB 155, ER (at 0 deg's AB) 42 , IR (behind back) L3. Initial UE QuickDASH score is 22.5 with 1 question missed ( indicates 20-39% impaired). Short Term Goal (STG) Pt will be independent with a HEP of shoulder PROM & AROM ex 's. STG Duration 05/03/21 Prison Goal (LTG) Improve active bilateral shoulder mobility (in sitting) for improved function per UE QuickDASH score less than 20 ( Initial Score is 22.5 with one question not answered). LTG Duration 06/16/21 Two Impairment Constant neck pain rated 1-6/ 10 Impairment Initial Neck & shoulder Disability Index is 14/50 = 20 -39% impaired Short Term Goal (STG) Reduce neck pain for pt perception of being intermittent in nature with pt able to sit in chair for 2 hours for relaxation or movie watching. STG Duration 05/03/21 Prison Goal (LTG) Decrease pain with improved function per neck/shoulder disability index score 9 or less. LTG Duration 06/16/21 One Impairment Self care HEP needed Short Term Goal (STG) Review and update pt's current HEP. (04/17/21: Reviewed HEP of neck/shoulder stretches to update current HEP). STG Duration 04/10/21 (04/17/21: Goal was partially met for neck/ shoulder stretches) Prison Goal (LTG) Pt will be independent in a self care HEP to promote reduction of neck/shoulder pain and improve neck/shoulder mobility. LTG Duration 06/16/21 (04/17/21: Goal was partially met for neck/ shoulder stretches) Assessment Summary Assessment Pt appears to have improved R shoulder mobility since last session. She is able to sit for 1/2 hr at a time, but moves mostly because she has things to do. Pt isn't aware of her sitting tolerance from neck pain. Pt's R shoulder pain is intermittent in nature , neck pain is constant. Physical Therapy Plan Next Visit Focus/Plan Next Note Type Treatment Note Next Visit Plan Review pt's existing HEP of shoulder strengthening and adherence to AROM/PROM ex's & modify or update as appropriate. Assess pt's tolerance to sitting & assess Apley's for IR/ER reaching before treatment to note progress. Cont STM of Cervicothoracic junction and thoracic mobility . MH during neck/shoulder PROM ex's, manual therapy to improve thoracic and cervical posturing, posture training, Start cervical stabilization & cont omari shoulder/neck ROM. Ice/EStim (neck, MH to back) if pt helpful.
--- NOTE | 2021-05-19 11:14 | PT.OTN ---
Current Diagnoses Other chronic pain (05/19/21) Cervicalgia (05/19/21) Low back pain (05/19/21) Pain in thoracic spine (05/19/21) Muscle weakness (generalized) (05/19/21) Physical Therapy Treatment Note PT-OP-A Visit Information Start: 04/02/21 17:26 Freq: Status: Active Protocol: Document 05/19/21 08:23 LRN (Rec: 05/19/21 09:53 LRN [id number]) Out-Patient Physical Therapy Visit Information Visit Information Visit Type Treatment Note Visit Start Time 09:00 Visit Stop Time 09:50 Total Visit Minutes 50 Visit Number 9 Evaluation Information Evaluation Date 04/03/21 Precautions Precautions Controlled HBP, chronic back and neck pain, chronic sinusitis. PT-OP-B Current Condition Start: 04/02/21 17:26 Freq: Status: Active Protocol: Document 04/03/21 12:47 LRN (Rec: 04/03/21 13:35 LRN [id number]) Current Condition History of Current Condition Onset Date November 2020 Current Complaints Constant R neck pain that worsens with head movement. History of Current Condition Ongoing R Neck/bilateral shoulder pain that has progressively to the point she has pain with any movement of her head. At night, sometimes wakes every hour due to pain and sometimes can sleep 5-6 hours. Slight movements can cause increase in R neck pain. Prior Treatments and Tests Physical Therapy 2 yrs ago. 2019 Cortisone spinal injections in the neck that was not helpful. Treatment Goals Patient/Caregiver Goals Pt goal with therapy is to decrease pain to be able to sit in chair for 2 hours for movie, decrease constant to 0/ 10 and decrease pain with movement to 3/10. Prior Functional Status Baseline Function- ADL's Independent Baseline Function- Mobility Independent Baseline Function- Other Able to sit 2+ hours to watch a movie. Limited to light duty (vacuum, dishes, small grocery bags). Sometimes able to sleep. Current Functional Impairments (Reported) Functional Limitations- ADL's Limited sitting of 1 hour due to neck pain. Limited to light duty (vacuum, dishes, small grocery bags). Sleeping disruption variable. Personal Factors Other Personal Factors That May Effect Chronic R sinusitis causes Therapy/Recovery headaches and eye socket pain. PT-OP-C Subjective Start: 04/02/21 17:26 Freq: Status: Active Protocol: Document 05/19/21 08:23 LRN (Rec: 05/19/21 09:53 LRN [id number]) OP-PT Subjective Patient Comments Patient Comments States she didn't sleep well last night due to back pain ( indicating in intrascapular region). Pain (T3-T4) 5-6/10. PT-OP-E Functional Tests Start: 04/02/21 17:26 Freq: Status: Active Protocol: Document 05/12/21 09:03 LRN (Rec: 05/12/21 10:09 LRN [id number]) Functional Tests Apley's Scratch Test Action 1- Left Superior angle of scapula Action 1- Right Lateral angle of scapula Action 2- Left T4 Action 2- Right T3 Action 3- Left T8 Action 3- Right L2 PT-OP-H Neuro Start: 04/02/21 17:26 Freq: Status: Active Protocol: Document 04/03/21 12:47 LRN (Rec: 04/03/21 13:35 LRN [id number]) Sensation Evaluation Gross Sensation Gross Sensation WNL Deep Tendon Reflex & Clonus Assessment Deep Tendon Reflex Bilateral Tricep Deep Tendon Reflex 1+ Diminished Bilateral Bicep Deep Tendon Reflex 2+ Normal PT-OP-J Posture/Palpation/Skin Start: 04/02/21 17:26 Freq: Status: Active Protocol: Document 04/03/21 12:47 LRN (Rec: 04/03/21 13:35 LRN [id number]) Posture Evaluation Position Standing Head/C-Spine Posture Forward Head Shoulder Posture (R) Forward,(L) Elevated Comments Posture Comments Dowagers hump, Straighten upper thoracic spine. Palpation Assessment Location Upper thoracic spine Palpation Location T/S Palpation Findings Soft Tissue Tightness,Muscle Guarding Upper shoulders Palpation Location UT's Palpation Findings Soft Tissue Tightness, Tenderness Neck Palpation Location Posterior & R lateral neck Palpation Findings Soft Tissue Tightness, Tenderness PT-OP-K Range of Motion Start: 04/02/21 17:26 Freq: Status: Active Protocol: Document 05/19/21 08:23 LRN (Rec: 05/19/21 09:53 LRN [id number]) Cervical Spine Range of Motion Cervical Spine Active Degrees Rotation Left 60 Rotation Right 60 PT-OP-M Strength Start: 09/16/21 17:26 Freq: Status: Active Protocol: Document 04/03/21 12:47 LRN (Rec: 04/03/21 13:35 LRN [id number]) Cervical Spine Strength Cervical Spine Manual Muscle Testing Flexion (C1-2) 4 Good Extension 5 Normal Shoulder Strength Shoulder Manual Muscle Testing Right Flexion 4 Good Abduction (C5) 4+ Good+ External Rotation 4- Good- Internal Rotation 4 Good Left Flexion 4 Good Abduction (C5) 4+ Good+ External Rotation 4 Good Internal Rotation 5 Normal PT-OP-Q Treatments Start: 04/02/21 17:26 Freq: Status: Active Protocol: Document 05/19/21 08:23 LRN (Rec: 05/19/21 09:53 LRN [id number]) Therapeutic Exercises Sitting Exercises Shldr AB/AD stretch Sitting Exercise Name Stretch w/cane & arm overhead Side bilateral Reps/Minutes 2' stretch each = 8' Comments Much Phys & v cuing needed Omari active shldr AB Sitting Exercise Name Jumping Valerio Arm Swings Side bilateral Reps/Minutes 10x Comments Extra time for cuing of arm movements. Scapular retraction Sitting Exercise Name Arms in max flex/Neck elongation/scapular pinch Reps/Minutes 3' Comments V cuing for neck elong & hold of arms in flexion Shoulder flex Sitting Exercise Name Alternate arm lifts w/neck elongation Side bilateral Reps/Minutes 10x Comments Pt required cuing for posture and I/S for ex. Pt moves slowly Neck Elongation Sitting Exercise Name Neck Elongation review Reps/Minutes 2' for 10 holds Manual Therapy Treatment Soft Tissue Mobilization Sternocostal joint Body Location T3, T4 Mobilization Type Myofascial Release,Trigger Point Release Intensity/Depth Moderate Body Position Supine Comments Approximation front/back T1-T3 Body Location PA of T1-T3 SP and L TP Mobilization Type Myofascial Release Intensity/Depth Moderate Body Position Supine Comments Pillows underneath. Anterior pressure in: upper sternum, Sternocostal joints & TP of R lower Cervical spine. Neck Body Location C7, T! Mobilization Type Myofascial Release,Sustained Pressure,Trigger Point Release Joint Mobilizations 1st rib Joint Inferior glide bilaterally Grade III Body Position Supine PT-OP-R Modalities Start: 04/02/21 17:26 Freq: Status: Active Protocol: Document 05/12/21 09:03 LRN (Rec: 05/12/21 10:09 LRN [id number]) Hot Pack/Cold Pack Treatment Cold Pack Location Neck Patient Position Hooklying Treatment Duration (minutes) 15 Patient Tolerance Good Comments During E-Stim, and in conjunction with MH to back. Hot Pack Location Back Patient Position Hooklying Treatment Duration (minutes) 15 Patient Tolerance Good Comments During E-Stim, and in conjunction with Cold pack to neck. PT-OP-T Assessment and Plan Start: 04/02/21 17:26 Freq: Status: Active Protocol: Document 05/19/21 08:23 LRN (Rec: 05/19/21 09:53 LRN [id number]) Physical Therapy Assessment Goals Four Impairment Constant bilateral upper shoulder pain rated 1-6/10. Impairment Initial Neck & shoulder Disability Index is 14/50 = 20 -39% impaired Short Term Goal (STG) Reduce bilateral upper shoulder pain to intermittent in nature. STG Duration 05/03/21 (05/15/21: MET GOAL ) Correction Goal (LTG) Decrease pain with movement to no greater than 3/10 to improve sleeping ability ( increase episodes of longer nights sleep. (05/12/21: Upper back pain 3- 4/10) LTG Duration 06/16/21 (05/12/21: Improving) Three Impairment Omari shoulder mobility limiting movement due to pain (1-6/10) Impairment AROM (in deg's) in sitting: L shoulder: flex 153, Ext 60, AB 150, ER (at 0 deg's AB) 37 , IR (behind back) T6. R shoulder: flex 152, Ext 60, AB 155, ER (at 0 deg's AB) 42 , IR (behind back) L3. Initial UE QuickDASH score is 22.5 with 1 question missed ( indicates 20-39% impaired). Short Term Goal (STG) Pt will be independent with a HEP of shoulder PROM & AROM ex 's. STG Duration 05/03/21 Surgical Instrument Mechanic Goal (LTG) Improve active bilateral shoulder mobility (in sitting) for improved function per UE QuickDASH score less than 20 ( Initial Score is 22.5 with one question not answered). LTG Duration 06/16/21 Two Impairment Constant neck pain rated 1-6/ 10 Impairment Initial Neck & shoulder Disability Index is 14/50 = 20 -39% impaired Short Term Goal (STG) Reduce neck pain for pt perception of being intermittent in nature with pt able to sit in chair for 2 hours for relaxation or movie watching. STG Duration 05/03/21 Surgical Instrument Mechanic Goal (LTG) Decrease pain with improved function per neck/shoulder disability index score 9 or less. LTG Duration 06/16/21 One Impairment Self care HEP needed Short Term Goal (STG) Review and update pt's current HEP. (04/17/21: Reviewed HEP of neck/shoulder stretches to update current HEP). STG Duration 04/10/21 (04/17/21: Goal was partially met for neck/ shoulder stretches) Surgical Instrument Mechanic Goal (LTG) Pt will be independent in a self care HEP to promote reduction of neck/shoulder pain and improve neck/shoulder mobility. LTG Duration 06/16/21 (04/17/21: Goal was partially met for neck/ shoulder stretches) Progress Towards Goals Progress Comments Restarted HEP: Active shoulder flexion, scapular retraction, Shoulder AB/AD, and stretches. Assessment Summary Assessment Pt takes extra time with ex's due to needing much v & phys cuing to do correctly. Pt C7- T1 mobility is improved with decrease in pain complaint. Pain is now at T3-T4 level, improved mobility after manualt therapy. No significant change in reported pain after treatment. Physical Therapy Plan Frequency and Duration Frequency of Treatment 2x/Week Plan of Care Start Date 04/03/21 Plan of Care End Date 06/16/21 Next Visit Focus/Plan Next Note Type Progress Note Next Visit Plan Continue review of pt's existing HEP of shoulder strengthening and adherence to AROM/PROM ex's & modify or update as appropriate. Assess pt's tolerance to sitting & assess Apley's for IR/ER reaching before treatment to note progress. Cont STM as needed of Cervicothoracic junction and thoracic mobility. MH during neck/shoulder PROM ex's, manual therapy to improve thoracic and cervical posturing, posture training, Start cervical stabilization & cont omari shoulder/neck ROM. Ice/EStim (neck, MH to back) if pt helpful.
--- NOTE | 2021-05-22 14:13 | PT.OTN ---
Current Diagnoses Other chronic pain (05/22/21) Cervicalgia (05/22/21) Low back pain (05/22/21) Pain in thoracic spine (05/22/21) Muscle weakness (generalized) (05/22/21) Physical Therapy Treatment Note PT-OP-A Visit Information Start: 04/02/21 17:26 Freq: Status: Active Protocol: Document 05/22/21 09:00 LRN (Rec: 05/22/21 09:54 LRN [id number]) Out-Patient Physical Therapy Visit Information Visit Information Visit Type Progress Note Visit Start Time 09:00 Visit Stop Time 09:52 Total Visit Minutes 52 Visit Number 10 Evaluation Information Evaluation Date 04/03/21 Precautions Precautions Controlled HBP, chronic back and neck pain, chronic sinusitis. PT-OP-B Current Condition Start: 04/02/21 17:26 Freq: Status: Active Protocol: Document 04/03/21 12:47 LRN (Rec: 04/03/21 13:35 LRN [id number]) Current Condition History of Current Condition Onset Date November 2020 Current Complaints Constant R neck pain that worsens with head movement. History of Current Condition Ongoing R Neck/bilateral shoulder pain that has progressively to the point she has pain with any movement of her head. At night, sometimes wakes every hour due to pain and sometimes can sleep 5-6 hours. Slight movements can cause increase in R neck pain. Prior Treatments and Tests Physical Therapy 2 yrs ago. 2019 Cortisone spinal injections in the neck that was not helpful. Treatment Goals Patient/Caregiver Goals Pt goal with therapy is to decrease pain to be able to sit in chair for 2 hours for movie, decrease constant to 0/ 10 and decrease pain with movement to 3/10. Prior Functional Status Baseline Function- ADL's Independent Baseline Function- Mobility Independent Baseline Function- Other Able to sit 2+ hours to watch a movie. Limited to light duty (vacuum, dishes, small grocery bags). Sometimes able to sleep. Current Functional Impairments (Reported) Functional Limitations- ADL's Limited sitting of 1 hour due to neck pain. Limited to light duty (vacuum, dishes, small grocery bags). Sleeping disruption variable. Personal Factors Other Personal Factors That May Effect Chronic R sinusitis causes Therapy/Recovery headaches and eye socket pain. PT-OP-C Subjective Start: 04/02/21 17:26 Freq: Status: Active Protocol: Document 05/22/21 09:00 LRN (Rec: 05/22/21 09:54 LRN [id number]) OP-PT Subjective Patient Comments Patient Comments States for a few hours she felt pretty good, but pain returned from Dowagers Hump to mid back. Patient Questionnaires Neck Disability Index NDI Score 15 Neck Disability Index Impairment 20 to 39% Impaired (Score 10- 19) Oswestry Low Back Index Oswestry Score 42 Oswestry Impairment 40 to 59% Impaired (Score 40- 59) Quick Dash- Upper Extremity Quick Dash UE Score 29.54 Quick Dash UE Impairment 20 to 39% Impaired (Score 20- 39) OP-PT Pain Assessment Pain Assessment Grid Paper Pain Assessment Grid Completed Yes Location Upper thoracic spine/Dowagers Hump Pain Location Details Upper and mid thoracic spine/ below Dowagers Hump Intensity 5 Scale Used Numeric (0 - 10) Description Dull,Tender,Tightness Frequency Intermittent PT-OP-E Functional Tests Start: 04/02/21 17:26 Freq: Status: Active Protocol: Document 05/12/21 09:03 LRN (Rec: 05/12/21 10:09 LRN [id number]) Functional Tests Apley's Scratch Test Action 1- Left Superior angle of scapula Action 1- Right Lateral angle of scapula Action 2- Left T4 Action 2- Right T3 Action 3- Left T8 Action 3- Right L2 PT-OP-H Neuro Start: 04/02/21 17:26 Freq: Status: Active Protocol: Document 04/03/21 12:47 LRN (Rec: 04/03/21 13:35 LRN [id number]) Sensation Evaluation Gross Sensation Gross Sensation WNL Deep Tendon Reflex & Clonus Assessment Deep Tendon Reflex Bilateral Tricep Deep Tendon Reflex 1+ Diminished Bilateral Bicep Deep Tendon Reflex 2+ Normal PT-OP-J Posture/Palpation/Skin Start: 04/02/21 17:26 Freq: Status: Active Protocol: Document 04/03/21 12:47 LRN (Rec: 04/03/21 13:35 LRN [id number]) Posture Evaluation Position Standing Head/C-Spine Posture Forward Head Shoulder Posture (R) Forward,(L) Elevated Comments Posture Comments Dowagers hump, Straighten upper thoracic spine. Palpation Assessment Location Upper thoracic spine Palpation Location T/S Palpation Findings Soft Tissue Tightness,Muscle Guarding Upper shoulders Palpation Location UT's Palpation Findings Soft Tissue Tightness, Tenderness Neck Palpation Location Posterior & R lateral neck Palpation Findings Soft Tissue Tightness, Tenderness PT-OP-K Range of Motion Start: 04/02/21 17:26 Freq: Status: Active Protocol: Document 05/19/21 08:23 LRN (Rec: 05/19/21 09:53 LRN [id number]) Cervical Spine Range of Motion Cervical Spine Active Degrees Rotation Left 60 Rotation Right 60 PT-OP-M Strength Start: 04/02/21 17:26 Freq: Status: Active Protocol: Document 04/03/21 12:47 LRN (Rec: 04/03/21 13:35 LRN [id number]) Cervical Spine Strength Cervical Spine Manual Muscle Testing Flexion (C1-2) 4 Good Extension 5 Normal Shoulder Strength Shoulder Manual Muscle Testing Right Flexion 4 Good Abduction (C5) 4+ Good+ External Rotation 4- Good- Internal Rotation 4 Good Left Flexion 4 Good Abduction (C5) 4+ Good+ External Rotation 4 Good Internal Rotation 5 Normal PT-OP-Q Treatments Start: 04/02/21 17:26 Freq: Status: Active Protocol: Document 05/22/21 09:00 LRN (Rec: 05/22/21 09:54 LRN [id number]) Cardio Equipment Recumbent Elliptical ([employer]) Duration (Minutes) 9 Resistance 3 Seat Position 6 Therapeutic Exercises Supine Exercises ROM neck Supine Exercise Name AAROM rotation Side bilateral Reps/Minutes 3' Sitting Exercises Omari active shldr AB Sitting Exercise Name Jumping Javon Arm Swings Side bilateral Reps/Minutes 10x Comments Extra time for cuing of arm movements. Neck Elongation Sitting Exercise Name Neck Elongation review Reps/Minutes 2' for 10 holds Neck ROM stretch Sitting Exercise Name Reviewed HEP: AROM (SB, Rot) Side bilateral Reps/Minutes 8' Comments Rot L tighter. Pt needs phys cuing and keeping on task. Shoulder horiz AD stretch Sitting Exercise Name Horiz AD stretch Side bilateral Reps/Minutes 2' Standing Exercises Shoulder retract Standing Exercise Name Row w/elastic Side bilateral Equipment Used Lev 1 Reps/Minutes 10x Comments Extra time for training to perform properly, cuing to keep arm straight Shoulder ADD strengthening Standing Exercise Name Resisted shld ADD w/elastic ( shld hgt) Side bilateral Equipment Used Lev 1 Reps/Minutes 10x Comments Extra time for training to perform properly, cuing to keep arm straight Shoulder Depression Standing Exercise Name Shoulder Drop Side bilateral Resistance Lev 1 Reps/Minutes 10x Comments Extra time for training to perform properly, cuing to keep arm straight Self-Care/Home Management Treatment Education Patient Education Home Exercise Program Other Education Updated pt's HEP of shoulder AROM and ARROM ex's (flex, horiz AD, scap retract with arms overhead and row w/ elastic; shoulder overhead AROM with cane, active AB ( jumping javon), inferior capsule stretch, and resisted strengthening of shld depression w/elastic, shld add w/elastic, and shld ER w/ elastic; sidelie ARROM for ER/ IR w/1#. Activities Self-Care/Home Management Activities Issued HEP as indicated above. PT-OP-R Modalities Start: 04/02/21 17:26 Freq: Status: Active Protocol: Document 05/12/21 09:03 LRN (Rec: 05/12/21 10:09 LRN [id number]) Hot Pack/Cold Pack Treatment Cold Pack Location Neck Patient Position Hooklying Treatment Duration (minutes) 15 Patient Tolerance Good Comments During E-Stim, and in conjunction with MH to back. Hot Pack Location Back Patient Position Hooklying Treatment Duration (minutes) 15 Patient Tolerance Good Comments During E-Stim, and in conjunction with Cold pack to neck. PT-OP-T Assessment and Plan Start: 04/02/21 17:26 Freq: Status: Active Protocol: Document 05/22/21 09:00 LRN (Rec: 05/22/21 09:54 LRN [id number]) Physical Therapy Assessment Goals Four Impairment Constant bilateral upper shoulder pain rated 1-6/10. Impairment Initial Neck & shoulder Disability Index is 14/50 = 20 -39% impaired Short Term Goal (STG) Reduce bilateral upper shoulder pain to intermittent in nature. 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 (05/12/21: Upper back pain 3- 4/10) (05/22/21: Neck pain is intermittent at no greater than 5). LTG Duration 06/16/21 (05/22/21: Pain no greater than 5/10, was 6/10) Three Impairment Omari shoulder mobility limiting movement due to pain (1-6/10) Impairment AROM (in deg's) in sitting: L shoulder: flex 153, Ext 60, AB 150, ER (at 0 deg's AB) 37 , IR (behind back) T6. R shoulder: flex 152, Ext 60, AB 155, ER (at 0 deg's AB) 42 , IR (behind back) L3. Initial UE QuickDASH score is 22.5 with 1 question missed ( indicates 20-39% impaired). Short Term Goal (STG) Pt will be independent with a HEP of shoulder PROM & AROM ex 's. STG Duration 05/03/21 (05/22/21: MET GOAL) Real Estate Financial Analyst Goal (LTG) Improve active bilateral shoulder mobility (in sitting) for improved function per UE QuickDASH score less than 20 ( Initial Score is 22.5 with one question not answered). (05/22/21: UE QuickDASH score 29.54 = 20-39% impaired). LTG Duration 06/16/21 Two Impairment Constant neck pain rated 1-6/ 10 Impairment Initial Neck & shoulder Disability Index is 14/50 = 20 -39% impaired Short Term Goal (STG) Reduce neck pain for pt perception of being intermittent in nature with pt able to sit in chair for 2 hours for relaxation or movie watching. (05/22/21: Neck pain is intermittent, sitting time 1/2 hour). STG Duration 05/03/21 (05/22/21: Neck pain is intermittent, sitting time 1/2 hour) Real Estate Financial Analyst Goal (LTG) Decrease pain with improved function per neck/shoulder disability index score 9 or less. (05/22/21: No significant change with neck/shoulder disabiltiy index, neck pain decreased to greater than 5/10 ) LTG Duration 06/16/21 (05/22/21: No significant change in function , max neck pain 5/10) One Impairment Self care HEP needed Short Term Goal (STG) Review and update pt's current HEP. (04/17/21: Reviewed HEP of neck/shoulder stretches to update current HEP). (05/22/21: Reviewed & updated pt's current HEP of ROM and strengthening of shoulders) STG Duration 04/10/21 (05/22/21: MET GOAL [facility] Goal (LTG) Pt will be independent in a self care HEP to promote reduction of neck/shoulder pain and improve neck/shoulder mobility. (05/22/21: Completed review of pt's previous HEP of neck/ shoulder ROM and strengthening ex's) LTG Duration 06/16/21 (05/22/21: Progressed shoulder HEP) Progress Towards Goals Progress Comments Pain in neck/shoulder is intermittent (was constant) and max pain is 5/10 (was 6/10 ). Assessment Summary Assessment The pt has improved overall with pain decreased from 1-6/ 10 to 0-5/10. She has had brief periods of no pain a few hours after therapy. Per questionaires, she appears ossibly worse in function with UE QuickDASH score of 29.54 ( initial was 22.5 with 1 unanswered question), Neck shoulder disability showing no significant change (today score is 15, initially was 14) , and Oswestry Disability Index is 42 (initial was 44) showing improvement by 2 points. The pt's pain location has become variable with good relief of pain at times at the level of the dowagers hump, with pain shifting to her intrascapular region. She responds well to manual therapy but also needs strengthening ex's to improve cervical/shoulder stability, which we recently started working towards. The pt will benefit from continued skilled physical therapy to promote pain reduction and increase neck/shoulder/back strength and stability to improve her function and decrease her perceived pain. Physical Therapy Plan Frequency and Duration Frequency of Treatment 2x/Week Plan of Care Start Date 05/22/21 Plan of Care End Date 07/08/21 Therapeutic Interventions Therapeutic Interventions Home Exercise Program,Joint Mobilizations,Manual Therapy, Neuromuscular Re-education, Patient/Caregiver Education, Self-Care/Home Management,Soft Tissue Mobilization, Therapeutic Exercises Modalities Cold Pack/Ice Massage,Electric Stimulation,Hot Packs, Ultrasound Next Visit Focus/Plan Next Note Type Treatment Note Next Visit Plan Continue shoulder strengthening and adherence to AROM/PROM ex's. Monitor pt's tolerance to sitting & assess Apley's for IR/ER reaching before treatment to note progress. Cont Manual therapy of Cervicothoracic junction and thoracic mobility. MH during neck/shoulder ROM ex's if appropriate, and continued posture training. Cervical/shldr stabilization & neck AROM. Modalities if needed (Ice neck , MH to back, ?EStim).
--- NOTE | 2021-05-25 17:09 | PT.OTN ---
Current Diagnoses Other chronic pain (05/25/21) Cervicalgia (05/25/21) Low back pain (05/25/21) Pain in thoracic spine (05/25/21) Muscle weakness (generalized) (05/25/21) Physical Therapy Treatment Note PT-OP-A Visit Information Start: 04/02/21 17:26 Freq: Status: Active Protocol: Document 05/25/21 09:49 LRN (Rec: 05/25/21 10:38 LRN [id number]) Out-Patient Physical Therapy Visit Information Visit Information Visit Type Treatment Note Visit Start Time 09:49 Visit Stop Time 10:34 Total Visit Minutes 44 Visit Number 11 Evaluation Information Evaluation Date 04/03/21 Precautions Precautions Controlled HBP, chronic back and neck pain, chronic sinusitis. PT-OP-B Current Condition Start: 04/02/21 17:26 Freq: Status: Active Protocol: Document 04/03/21 12:47 LRN (Rec: 04/03/21 13:35 LRN [id number]) Current Condition History of Current Condition Onset Date November 2020 Current Complaints Constant R neck pain that worsens with head movement. History of Current Condition Ongoing R Neck/bilateral shoulder pain that has progressively to the point she has pain with any movement of her head. At night, sometimes wakes every hour due to pain and sometimes can sleep 5-6 hours. Slight movements can cause increase in R neck pain. Prior Treatments and Tests Physical Therapy 2 yrs ago. 2019 Cortisone spinal injections in the neck that was not helpful. Treatment Goals Patient/Caregiver Goals Pt goal with therapy is to decrease pain to be able to sit in chair for 2 hours for movie, decrease constant to 0/ 10 and decrease pain with movement to 3/10. Prior Functional Status Baseline Function- ADL's Independent Baseline Function- Mobility Independent Baseline Function- Other Able to sit 2+ hours to watch a movie. Limited to light duty (vacuum, dishes, small grocery bags). Sometimes able to sleep. Current Functional Impairments (Reported) Functional Limitations- ADL's Limited sitting of 1 hour due to neck pain. Limited to light duty (vacuum, dishes, small grocery bags). Sleeping disruption variable. Personal Factors Other Personal Factors That May Effect Chronic R sinusitis causes Therapy/Recovery headaches and eye socket pain. PT-OP-C Subjective Start: 04/02/21 17:26 Freq: Status: Active Protocol: Document 05/25/21 09:49 LRN (Rec: 05/25/21 10:38 LRN [id number]) OP-PT Subjective Patient Comments Patient Comments States has had a constant R sided headache since last visit (the side of the issue). PT-OP-E Functional Tests Start: 04/02/21 17:26 Freq: Status: Active Protocol: Document 05/12/21 09:03 LRN (Rec: 05/12/21 10:09 LRN [id number]) Functional Tests Apley's Scratch Test Action 1- Left Superior angle of scapula Action 1- Right Lateral angle of scapula Action 2- Left T4 Action 2- Right T3 Action 3- Left T8 Action 3- Right L2 PT-OP-H Neuro Start: 04/02/21 17:26 Freq: Status: Active Protocol: Document 04/03/21 12:47 LRN (Rec: 04/03/21 13:35 LRN [id number]) Sensation Evaluation Gross Sensation Gross Sensation WNL Deep Tendon Reflex & Clonus Assessment Deep Tendon Reflex Bilateral Tricep Deep Tendon Reflex 1+ Diminished Bilateral Bicep Deep Tendon Reflex 2+ Normal PT-OP-J Posture/Palpation/Skin Start: 04/02/21 17:26 Freq: Status: Active Protocol: Document 04/03/21 12:47 LRN (Rec: 04/03/21 13:35 LRN [id number]) Posture Evaluation Position Standing Head/C-Spine Posture Forward Head Shoulder Posture (R) Forward,(L) Elevated Comments Posture Comments Dowagers hump, Straighten upper thoracic spine. Palpation Assessment Location Upper thoracic spine Palpation Location T/S Palpation Findings Soft Tissue Tightness,Muscle Guarding Upper shoulders Palpation Location UT's Palpation Findings Soft Tissue Tightness, Tenderness Neck Palpation Location Posterior & R lateral neck Palpation Findings Soft Tissue Tightness, Tenderness PT-OP-K Range of Motion Start: 04/02/21 17:26 Freq: Status: Active Protocol: Document 05/19/21 08:23 LRN (Rec: 05/19/21 09:53 LRN [id number]) Cervical Spine Range of Motion Cervical Spine Active Degrees Rotation Left 60 Rotation Right 60 PT-OP-M Strength Start: 04/02/21 17:26 Freq: Status: Active Protocol: Document 04/03/21 12:47 LRN (Rec: 04/03/21 13:35 LRN [id number]) Cervical Spine Strength Cervical Spine Manual Muscle Testing Flexion (C1-2) 4 Good Extension 5 Normal Shoulder Strength Shoulder Manual Muscle Testing Right Flexion 4 Good Abduction (C5) 4+ Good+ External Rotation 4- Good- Internal Rotation 4 Good Left Flexion 4 Good Abduction (C5) 4+ Good+ External Rotation 4 Good Internal Rotation 5 Normal PT-OP-Q Treatments Start: 04/02/21 17:26 Freq: Status: Active Protocol: Document 05/25/21 09:49 LRN (Rec: 05/25/21 10:38 LRN [id number]) Therapeutic Exercises Supine Exercises Shoulder rolls Supine Exercise Name Shoulder rolls Side bilateral Reps/Minutes 4' Single Right and biliateral ROM neck Supine Exercise Name Passive manual stretch of Rot & SB Side bilateral Reps/Minutes 8' Manual Therapy Treatment Soft Tissue Mobilization R head fascia Body Location R side of head (all directions ) Mobilization Type Myofascial Release Intensity/Depth Superficial Body Position Supine Neck Body Location Right: UT, anterior scalenes, c/s paraspinals, Lev Scapula Mobilization Type Myofascial Release,Sustained Pressure,Trigger Point Release Intensity/Depth Superficial to moderate Body Position Supine Comments Lying on pillows Manual Traction Cervical Details Manual axial traction at rest & with shoulder rolls Body Position Supine Reps/Duration 4' Manual Techniques PROM C/S Type PROM C/S for rotation & PROM w /MFR into L SB Body Location Neck Body Position Supine Reps/Duration 4' PT-OP-R Modalities Start: 04/02/21 17:26 Freq: Status: Active Protocol: Document 05/12/21 09:03 LRN (Rec: 05/12/21 10:09 LRN [id number]) Hot Pack/Cold Pack Treatment Cold Pack Location Neck Patient Position Hooklying Treatment Duration (minutes) 15 Patient Tolerance Good Comments During E-Stim, and in conjunction with MH to back. Hot Pack Location Back Patient Position Hooklying Treatment Duration (minutes) 15 Patient Tolerance Good Comments During E-Stim, and in conjunction with Cold pack to neck. PT-OP-T Assessment and Plan Start: 04/02/21 17:26 Freq: Status: Active Protocol: Document 05/25/21 09:49 LRN (Rec: 05/25/21 10:38 LRN [id number]) Physical Therapy Assessment Goals Four Impairment Constant bilateral upper shoulder pain rated 1-6/10. Impairment Initial Neck & shoulder Disability Index is 14/50 = 20 -39% impaired Short Term Goal (STG) Reduce bilateral upper shoulder pain to intermittent in nature. STG Duration 05/03/21 (05/15/21: MET GOAL ) [facility] Goal (LTG) Decrease pain with movement to no greater than 3/10 to improve sleeping ability ( increase episodes of longer nights sleep. (05/12/21: Upper back pain 3- 4/10) (05/22/21: Neck pain is intermittent at no greater than 5). LTG Duration 06/16/21 (05/22/21: Pain no greater than 5/10, was 6/10) Three Impairment Omari shoulder mobility limiting movement due to pain (1-6/10) Impairment AROM (in deg's) in sitting: L shoulder: flex 153, Ext 60, AB 150, ER (at 0 deg's AB) 37 , IR (behind back) T6. R shoulder: flex 152, Ext 60, AB 155, ER (at 0 deg's AB) 42 , IR (behind back) L3. Initial UE QuickDASH score is 22.5 with 1 question missed ( indicates 20-39% impaired). Short Term Goal (STG) Pt will be independent with a HEP of shoulder PROM & AROM ex 's. 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 (05/22/21: UE QuickDASH score 29.54 = 20-39% impaired). LTG Duration 06/16/21 Two Impairment Constant neck pain rated 1-6/ 10 Impairment Initial Neck & shoulder Disability Index is 14/50 = 20 -39% impaired Short Term Goal (STG) Reduce neck pain for pt perception of being intermittent in nature with pt able to sit in chair for 2 hours for relaxation or movie watching. (05/22/21: Neck pain is intermittent, sitting time 1/2 hour). STG Duration 05/03/21 (05/22/21: Neck pain is intermittent, sitting time 1/2 hour) [facility] Goal (LTG) Decrease pain with improved function per neck/shoulder disability index score 9 or less. (05/22/21: No significant change with neck/shoulder disabiltiy index, neck pain decreased to greater than 5/10 ) LTG Duration 06/16/21 (05/22/21: No significant change in function , max neck pain 5/10) One Impairment Self care HEP needed Short Term Goal (STG) Review and update pt's current HEP. (04/17/21: Reviewed HEP of neck/shoulder stretches to update current HEP). (05/22/21: Reviewed & updated pt's current HEP of ROM and strengthening of shoulders) STG Duration 04/10/21 (05/22/21: MET GOAL Label Machine Operator Goal (LTG) Pt will be independent in a self care HEP to promote reduction of neck/shoulder pain and improve neck/shoulder mobility. (05/22/21: Completed review of pt's previous HEP of neck/ shoulder ROM and strengthening ex's) LTG Duration 06/16/21 (05/22/21: Progressed shoulder HEP) Progress Towards Goals Progress Comments Pt in flare up with headache since last Tuesday. Pain headache pain rated 6/10. Assessment Summary Assessment Pt attends today in distress over chronic headache reportedly since last treatment session. Pt was not able to identify if she had a headache immediately after therapy but noted since Tuesday she has had headache. Pt had increased muscle tone of the R neck/shoulder region and fascia of R side of head. She was restricted in cervical rotation and SB due to muscle tightness on the the R side. Pt noted headache pain as 6/10 and no change after treatment today. Pt did not have pain at cervicothoracic junction or in the intrascapular region. Physical Therapy Plan Frequency and Duration Frequency of Treatment 2x/Week Plan of Care Start Date 05/22/21 Plan of Care End Date 07/08/21 Next Visit Focus/Plan Next Note Type Treatment Note Next Visit Plan Neck/Shoulder stabilization strengthening if pain controlled. Assess adherence to AROM/PROM ex's. Monitor pt's tolerance to sitting & assess Apley's for IR/ER reaching before treatment to note progress. Assess need for manual therapy for Cervicothoracic junction and thoracic mobility. MH during neck/shoulder ROM ex 's if appropriate and to end Continued posture training head/neck/shoulder.
--- NOTE | 2021-05-29 16:05 | PT.OTN ---
Current Diagnoses Other chronic pain (05/29/21) Cervicalgia (05/29/21) Low back pain (05/29/21) Pain in thoracic spine (05/29/21) Muscle weakness (generalized) (05/29/21) Physical Therapy Treatment Note PT-OP-A Visit Information Start: 04/02/21 17:26 Freq: Status: Active Protocol: Document 05/29/21 10:40 LRN (Rec: 05/29/21 11:23 LRN [id number]) Out-Patient Physical Therapy Visit Information Visit Information Visit Type Treatment Note Visit Start Time 10:40 Visit Stop Time 11:26 Total Visit Minutes 46 Visit Number 12 Evaluation Information Evaluation Date 04/03/21 Precautions Precautions Controlled HBP, chronic back and neck pain, chronic sinusitis. PT-OP-B Current Condition Start: 04/02/21 17:26 Freq: Status: Active Protocol: Document 04/03/21 12:47 LRN (Rec: 04/03/21 13:35 LRN [id number]) Current Condition History of Current Condition Onset Date November 2020 Current Complaints Constant R neck pain that worsens with head movement. History of Current Condition Ongoing R Neck/bilateral shoulder pain that has progressively to the point she has pain with any movement of her head. At night, sometimes wakes every hour due to pain and sometimes can sleep 5-6 hours. Slight movements can cause increase in R neck pain. Prior Treatments and Tests Physical Therapy 2 yrs ago. 2019 Cortisone spinal injections in the neck that was not helpful. Treatment Goals Patient/Caregiver Goals Pt goal with therapy is to decrease pain to be able to sit in chair for 2 hours for movie, decrease constant to 0/ 10 and decrease pain with movement to 3/10. Prior Functional Status Baseline Function- ADL's Independent Baseline Function- Mobility Independent Baseline Function- Other Able to sit 2+ hours to watch a movie. Limited to light duty (vacuum, dishes, small grocery bags). Sometimes able to sleep. Current Functional Impairments (Reported) Functional Limitations- ADL's Limited sitting of 1 hour due to neck pain. Limited to light duty (vacuum, dishes, small grocery bags). Sleeping disruption variable. Personal Factors Other Personal Factors That May Effect Chronic R sinusitis causes Therapy/Recovery headaches and eye socket pain. PT-OP-C Subjective Start: 04/02/21 17:26 Freq: Status: Active Protocol: Document 05/29/21 10:40 LRN (Rec: 05/29/21 11:23 LRN [id number]) OP-PT Subjective Patient Comments Patient Comments States she has a slight headache. Pain in upper thoracic region. PT-OP-E Functional Tests Start: 04/02/21 17:26 Freq: Status: Active Protocol: Document 05/12/21 09:03 LRN (Rec: 05/12/21 10:09 LRN [id number]) Functional Tests Apley's Scratch Test Action 1- Left Superior angle of scapula Action 1- Right Lateral angle of scapula Action 2- Left T4 Action 2- Right T3 Action 3- Left T8 Action 3- Right L2 PT-OP-H Neuro Start: 04/02/21 17:26 Freq: Status: Active Protocol: Document 04/03/21 12:47 LRN (Rec: 04/03/21 13:35 LRN [id number]) Sensation Evaluation Gross Sensation Gross Sensation WNL Deep Tendon Reflex & Clonus Assessment Deep Tendon Reflex Bilateral Tricep Deep Tendon Reflex 1+ Diminished Bilateral Bicep Deep Tendon Reflex 2+ Normal PT-OP-J Posture/Palpation/Skin Start: 04/02/21 17:26 Freq: Status: Active Protocol: Document 04/03/21 12:47 LRN (Rec: 04/03/21 13:35 LRN [id number]) Posture Evaluation Position Standing Head/C-Spine Posture Forward Head Shoulder Posture (R) Forward,(L) Elevated Comments Posture Comments Dowagers hump, Straighten upper thoracic spine. Palpation Assessment Location Upper thoracic spine Palpation Location T/S Palpation Findings Soft Tissue Tightness,Muscle Guarding Upper shoulders Palpation Location UT's Palpation Findings Soft Tissue Tightness, Tenderness Neck Palpation Location Posterior & R lateral neck Palpation Findings Soft Tissue Tightness, Tenderness PT-OP-K Range of Motion Start: 04/02/21 17:26 Freq: Status: Active Protocol: Document 05/19/21 08:23 LRN (Rec: 05/19/21 09:53 LRN [id number]) Cervical Spine Range of Motion Cervical Spine Active Degrees Rotation Left 60 Rotation Right 60 PT-OP-M Strength Start: 04/02/21 17:26 Freq: Status: Active Protocol: Document 04/03/21 12:47 LRN (Rec: 04/03/21 13:35 LRN [id number]) Cervical Spine Strength Cervical Spine Manual Muscle Testing Flexion (C1-2) 4 Good Extension 5 Normal Shoulder Strength Shoulder Manual Muscle Testing Right Flexion 4 Good Abduction (C5) 4+ Good+ External Rotation 4- Good- Internal Rotation 4 Good Left Flexion 4 Good Abduction (C5) 4+ Good+ External Rotation 4 Good Internal Rotation 5 Normal PT-OP-Q Treatments Start: 04/02/21 17:26 Freq: Status: Active Protocol: Document 05/29/21 10:40 LRN (Rec: 05/29/21 11:23 LRN [id number]) Therapeutic Exercises Supine Exercises ROM neck Supine Exercise Name AROM stretch Side bilateral Reps/Minutes 8' Manual Therapy Treatment Soft Tissue Mobilization R head fascia Body Location R side of head (all directions ) Mobilization Type Myofascial Release Intensity/Depth Superficial Body Position Supine Sternocostal joint Body Location T1 Mobilization Type Myofascial Release,Trigger Point Release Intensity/Depth Moderate Body Position Supine Comments Approximation front/back T1-T3 Body Location PA of T1, T2 SP and L TP Mobilization Type Myofascial Release Intensity/Depth Moderate Body Position Supine Comments Pillows underneath. Anterior pressure in: upper sternum, Sternocostal joints & TP of R lower Cervical spine. Neck Body Location Right: UT, anterior scalenes, c/s paraspinals, Lev Scapula Mobilization Type Myofascial Release,Sustained Pressure,Trigger Point Release Intensity/Depth Superficial to moderate Body Position Supine Comments Lying on pillows UT/LS Body Location L UT Mobilization Type Strumming,Sustained Pressure Intensity/Depth Moderate Body Position Supine Manual Techniques PROM C/S Type PROM C/S for rotation & PROM w /MFR into L SB Body Location Neck Body Position Supine Reps/Duration 4' PT-OP-R Modalities Start: 04/02/21 17:26 Freq: Status: Active Protocol: Document 05/12/21 09:03 LRN (Rec: 05/12/21 10:09 LRN [id number]) Hot Pack/Cold Pack Treatment Cold Pack Location Neck Patient Position Hooklying Treatment Duration (minutes) 15 Patient Tolerance Good Comments During E-Stim, and in conjunction with MH to back. Hot Pack Location Back Patient Position Hooklying Treatment Duration (minutes) 15 Patient Tolerance Good Comments During E-Stim, and in conjunction with Cold pack to neck. PT-OP-T Assessment and Plan Start: 04/02/21 17:26 Freq: Status: Active Protocol: Document 05/29/21 10:40 LRN (Rec: 05/29/21 11:23 LRN [id number]) Physical Therapy Assessment Goals Four Impairment Constant bilateral upper shoulder pain rated 1-6/10. Impairment Initial Neck & shoulder Disability Index is 14/50 = 20 -39% impaired Short Term Goal (STG) Reduce bilateral upper shoulder pain to intermittent in nature. STG Duration 05/03/21 (05/15/21: MET GOAL ) Assisted Goal (LTG) Decrease pain with movement to no greater than 3/10 to improve sleeping ability ( increase episodes of longer nights sleep. (05/12/21: Upper back pain 3- 4/10) (05/22/21: Neck pain is intermittent at no greater than 5). LTG Duration 06/16/21 (05/22/21: Pain no greater than 5/10, was 6/10) Three Impairment Omari shoulder mobility limiting movement due to pain (1-6/10) Impairment AROM (in deg's) in sitting: L shoulder: flex 153, Ext 60, AB 150, ER (at 0 deg's AB) 37 , IR (behind back) T6. R shoulder: flex 152, Ext 60, AB 155, ER (at 0 deg's AB) 42 , IR (behind back) L3. Initial UE QuickDASH score is 22.5 with 1 question missed ( indicates 20-39% impaired). Short Term Goal (STG) Pt will be independent with a HEP of shoulder PROM & AROM ex 's. STG Duration 05/03/21 (05/22/21: MET GOAL) Assisted Goal (LTG) Improve active bilateral shoulder mobility (in sitting) for improved function per UE QuickDASH score less than 20 ( Initial Score is 22.5 with one question not answered). (05/22/21: UE QuickDASH score 29.54 = 20-39% impaired). LTG Duration 06/16/21 Two Impairment Constant neck pain rated 1-6/ 10 Impairment Initial Neck & shoulder Disability Index is 14/50 = 20 -39% impaired Short Term Goal (STG) Reduce neck pain for pt perception of being intermittent in nature with pt able to sit in chair for 2 hours for relaxation or movie watching. (05/22/21: Neck pain is intermittent, sitting time 1/2 hour). STG Duration 05/03/21 (05/22/21: Neck pain is intermittent, sitting time 1/2 hour) Pond Supervisor Goal (LTG) Decrease pain with improved function per neck/shoulder disability index score 9 or less. (05/22/21: No significant change with neck/shoulder disabiltiy index, neck pain decreased to greater than 5/10 ) LTG Duration 06/16/21 (05/22/21: No significant change in function , max neck pain 5/10) One Impairment Self care HEP needed Short Term Goal (STG) Review and update pt's current HEP. (04/17/21: Reviewed HEP of neck/shoulder stretches to update current HEP). (05/22/21: Reviewed & updated pt's current HEP of ROM and strengthening of shoulders) STG Duration 04/10/21 (05/22/21: MET GOAL Assisted Goal (LTG) Pt will be independent in a self care HEP to promote reduction of neck/shoulder pain and improve neck/shoulder mobility. (05/22/21: Completed review of pt's previous HEP of neck/ shoulder ROM and strengthening ex's) LTG Duration 06/16/21 (05/22/21: Progressed shoulder HEP) Assessment Summary Assessment Pt having complaints of a mild headache and soreness of the upper back inferior to Dowager 's Hump at C7. Pt tight in L cervical paraspinals to start, ended with tightness of R UT and stiffness with cervical SB left. Pt recovering from flare up of neck/R shoulder/ headache. Physical Therapy Plan Frequency and Duration Frequency of Treatment 2x/Week Plan of Care Start Date 05/22/21 Plan of Care End Date 07/08/21 Next Visit Focus/Plan Next Note Type Treatment Note Next Visit Plan Neck/Shoulder stabilization strengthening if pain controlled. Assess adherence to AROM/PROM ex's. Monitor pt's tolerance to sitting & assess Apley's for IR/ER reaching before treatment to note progress. Assess need for manual therapy for Cervicothoracic junction and thoracic mobility. MH during neck/shoulder ROM ex 's if appropriate and to end Continued posture training head/neck/shoulder.
--- NOTE | 2021-06-01 11:50 | PT.OTN ---
Current Diagnoses Other chronic pain (06/01/21) Cervicalgia (06/01/21) Low back pain (06/01/21) Pain in thoracic spine (06/01/21) Muscle weakness (generalized) (06/01/21) Physical Therapy Treatment Note PT-OP-A Visit Information Start: 04/02/21 17:26 Freq: Status: Active Protocol: Document 06/01/21 09:04 LRN (Rec: 06/01/21 11:45 LRN [id number]) Out-Patient Physical Therapy Visit Information Visit Information Visit Type Treatment Note Visit Start Time 09:04 Visit Stop Time 09:53 Total Visit Minutes 49 Visit Number 13 Evaluation Information Evaluation Date 04/03/21 PT-OP-B Current Condition Start: 04/02/21 17:26 Freq: Status: Active Protocol: Document 04/03/21 12:47 LRN (Rec: 04/03/21 13:35 LRN [id number]) Current Condition History of Current Condition Onset Date November 2020 Current Complaints Constant R neck pain that worsens with head movement. History of Current Condition Ongoing R Neck/bilateral shoulder pain that has progressively to the point she has pain with any movement of her head. At night, sometimes wakes every hour due to pain and sometimes can sleep 5-6 hours. Slight movements can cause increase in R neck pain. Prior Treatments and Tests Physical Therapy 2 yrs ago. 2019 Cortisone spinal injections in the neck that was not helpful. Treatment Goals Patient/Caregiver Goals Pt goal with therapy is to decrease pain to be able to sit in chair for 2 hours for movie, decrease constant to 0/ 10 and decrease pain with movement to 3/10. Prior Functional Status Baseline Function- ADL's Independent Baseline Function- Mobility Independent Baseline Function- Other Able to sit 2+ hours to watch a movie. Limited to light duty (vacuum, dishes, small grocery bags). Sometimes able to sleep. Current Functional Impairments (Reported) Functional Limitations- ADL's Limited sitting of 1 hour due to neck pain. Limited to light duty (vacuum, dishes, small grocery bags). Sleeping disruption variable. Personal Factors Other Personal Factors That May Effect Chronic R sinusitis causes Therapy/Recovery headaches and eye socket pain. PT-OP-C Subjective Start: 04/02/21 17:26 Freq: Status: Active Protocol: Document 06/01/21 09:04 LRN (Rec: 06/01/21 11:45 LRN [id number]) OP-PT Subjective Patient Comments Patient Comments States her R head/neck (pt indicates in suboccipital and lateral side of head) pain persists. C/O foread tight. Pain rated as 5/10. PT-OP-E Functional Tests Start: 04/02/21 17:26 Freq: Status: Active Protocol: Document 05/12/21 09:03 LRN (Rec: 05/12/21 10:09 LRN [id number]) Functional Tests Apley's Scratch Test Action 1- Left Superior angle of scapula Action 1- Right Lateral angle of scapula Action 2- Left T4 Action 2- Right T3 Action 3- Left T8 Action 3- Right L2 PT-OP-H Neuro Start: 04/02/21 17:26 Freq: Status: Active Protocol: Document 04/03/21 12:47 LRN (Rec: 04/03/21 13:35 LRN [id number]) Sensation Evaluation Gross Sensation Gross Sensation WNL Deep Tendon Reflex & Clonus Assessment Deep Tendon Reflex Bilateral Tricep Deep Tendon Reflex 1+ Diminished Bilateral Bicep Deep Tendon Reflex 2+ Normal PT-OP-J Posture/Palpation/Skin Start: 04/02/21 17:26 Freq: Status: Active Protocol: Document 04/03/21 12:47 LRN (Rec: 04/03/21 13:35 LRN [id number]) Posture Evaluation Position Standing Head/C-Spine Posture Forward Head Shoulder Posture (R) Forward,(L) Elevated Comments Posture Comments Dowagers hump, Straighten upper thoracic spine. Palpation Assessment Location Upper thoracic spine Palpation Location T/S Palpation Findings Soft Tissue Tightness,Muscle Guarding Upper shoulders Palpation Location UT's Palpation Findings Soft Tissue Tightness, Tenderness Neck Palpation Location Posterior & R lateral neck Palpation Findings Soft Tissue Tightness, Tenderness PT-OP-K Range of Motion Start: 04/02/21 17:26 Freq: Status: Active Protocol: Document 05/19/21 08:23 LRN (Rec: 05/19/21 09:53 LRN [id number]) Cervical Spine Range of Motion Cervical Spine Active Degrees Rotation Left 60 Rotation Right 60 PT-OP-M Strength Start: 04/02/21 17:26 Freq: Status: Active Protocol: Document 04/03/21 12:47 LRN (Rec: 04/03/21 13:35 LRN [id number]) Cervical Spine Strength Cervical Spine Manual Muscle Testing Flexion (C1-2) 4 Good Extension 5 Normal Shoulder Strength Shoulder Manual Muscle Testing Right Flexion 4 Good Abduction (C5) 4+ Good+ External Rotation 4- Good- Internal Rotation 4 Good Left Flexion 4 Good Abduction (C5) 4+ Good+ External Rotation 4 Good Internal Rotation 5 Normal PT-OP-Q Treatments Start: 04/02/21 17:26 Freq: Status: Active Protocol: Document 06/01/21 09:04 LRN (Rec: 06/01/21 11:45 LRN [id number]) Cardio Equipment Recumbent Elliptical ([employer]) Duration (Minutes) 5 Resistance 3 Seat Position 6 Therapeutic Exercises Sitting Exercises UT Sitting Exercise Name Omar shoulder shrug Side right Reps/Minutes 2' Comments Difficulty with activiating weak shoulder shrug (lev scap) ms. C. Omar ext Sitting Exercise Name R C/S omar ext with fingertip pressure resist @ occiput. Side right Reps/Minutes 3' Comments Variable locations of head to obtain correct area of ms to strengthen. Neck ROM stretch Sitting Exercise Name Cervical Active rotation & SB stretch Side bilateral Reps/Minutes 3' Comments Pt needed cuing for hold stretch times. Manual Therapy Treatment Soft Tissue Mobilization R head fascia Body Location R side of head (all directions ) Mobilization Type Myofascial Release Intensity/Depth Superficial Body Position Supine T1-T3 Body Location PA of T1, T2 SP and L TP ( min rx needed) Mobilization Type Myofascial Release Intensity/Depth Moderate Body Position Supine Comments Pillows underneath. Anterior pressure in: upper sternum, Sternocostal joints & TP of R lower Cervical spine. Neck Body Location Right: UT, anterior scalenes, c/s paraspinals, TrP of Lev Scapula Mobilization Type Myofascial Release,Sustained Pressure,Trigger Point Release Intensity/Depth Superficial to moderate Body Position Supine Comments Lying on pillows Joint Mobilizations Subocciput, C2, C3 Joint MWM of Occiput-C1, C1-C2, C2- C3 Direction Rot Body Position Sitting Reps/Duration 5' T1-T3 Joint R: T1, T2 MWM rot Direction R rot Body Position Sitting Reps/Duration 5' PT-OP-R Modalities Start: 04/02/21 17:26 Freq: Status: Active Protocol: Document 06/01/21 09:04 LRN (Rec: 06/01/21 11:45 LRN [id number]) Hot Pack/Cold Pack Treatment Cold Pack Location Neck Patient Position Hooklying Treatment Duration (minutes) 10 Patient Tolerance Good Comments Used with Hot Pack Location Back Patient Position Hooklying Treatment Duration (minutes) 10 Patient Tolerance Good Comments Used with CP PT-OP-T Assessment and Plan Start: 04/02/21 17:26 Freq: Status: Active Protocol: Document 06/01/21 09:04 LRN (Rec: 06/01/21 11:45 LRN [id number]) Physical Therapy Assessment Goals Four Impairment Constant bilateral upper shoulder pain rated 1-6/10. Impairment Initial Neck & shoulder Disability Index is 14/50 = 20 -39% impaired Short Term Goal (STG) Reduce bilateral upper shoulder pain to intermittent in nature. STG Duration 05/03/21 (05/15/21: MET GOAL ) [employer] Specialist Goal (LTG) Decrease pain with movement to no greater than 3/10 to improve sleeping ability ( increase episodes of longer nights sleep. (05/12/21: Upper back pain 3- 4/10) (05/22/21: Neck pain is intermittent at no greater than 5). LTG Duration 06/16/21 (05/22/21: Pain no greater than 5/10, was 6/10) Three Impairment Omari shoulder mobility limiting movement due to pain (1-6/10) Impairment AROM (in deg's) in sitting: L shoulder: flex 153, Ext 60, AB 150, ER (at 0 deg's AB) 37 , IR (behind back) T6. R shoulder: flex 152, Ext 60, AB 155, ER (at 0 deg's AB) 42 , IR (behind back) L3. Initial UE QuickDASH score is 22.5 with 1 question missed ( indicates 20-39% impaired). Short Term Goal (STG) Pt will be independent with a HEP of shoulder PROM & AROM ex 's. STG Duration 05/03/21 (05/22/21: MET GOAL) [employer] And Fertilizer Specialist Goal (LTG) Improve active bilateral shoulder mobility (in sitting) for improved function per UE QuickDASH score less than 20 ( Initial Score is 22.5 with one question not answered). (05/22/21: UE QuickDASH score 29.54 = 20-39% impaired). LTG Duration 06/16/21 Two Impairment Constant neck pain rated 1-6/ 10 Impairment Initial Neck & shoulder Disability Index is 14/50 = 20 -39% impaired Short Term Goal (STG) Reduce neck pain for pt perception of being intermittent in nature with pt able to sit in chair for 2 hours for relaxation or movie watching. (05/22/21: Neck pain is intermittent, sitting time 1/2 hour). STG Duration 05/03/21 (05/22/21: Neck pain is intermittent, sitting time 1/2 hour) [employer] Fertilizer Specialist Goal (LTG) Decrease pain with improved function per neck/shoulder disability index score 9 or less. (05/22/21: No significant change with neck/shoulder disabiltiy index, neck pain decreased to greater than 5/10 ) LTG Duration 06/16/21 (05/22/21: No significant change in function , max neck pain 5/10) One Impairment Self care HEP needed Short Term Goal (STG) Review and update pt's current HEP. (04/17/21: Reviewed HEP of neck/shoulder stretches to update current HEP). (05/22/21: Reviewed & updated pt's current HEP of ROM and strengthening of shoulders) STG Duration 04/10/21 (05/22/21: MET GOAL Seed And Fertilizer Specialist Goal (LTG) Pt will be independent in a self care HEP to promote reduction of neck/shoulder pain and improve neck/shoulder mobility. (05/22/21: Completed review of pt's previous HEP of neck/ shoulder ROM and strengthening ex's) LTG Duration 06/16/21 (05/22/21: Progressed shoulder HEP) Progress Towards Goals Progress Comments Pt able to do neck/shoulder ex on [employer] without complaints of increased R head/neck/ shoulder pain. Assessment Summary Assessment R head fascia tight to start, improved mobility after treatment. No pain with PA of Upper T/S or @ Dowagers Hump. Tender in primarily mid C/S, R UT/Lev Scap pain with active rotation. Weak R Lev Scap & C/S Extensor of lower C spine. No significant change in pain in neck after treatment. Pt primary complaint is with R neck/ fascia head pain/headache. Physical Therapy Plan Frequency and Duration Frequency of Treatment 2x/Week Plan of Care Start Date 05/22/21 Plan of Care End Date 07/08/21 Next Visit Focus/Plan Next Note Type Treatment Note Next Visit Plan Assess response to STM for her head/neck pain. Neck/ Shoulder stabilization strengthening (R Lev Scap/UT) if pain decreasing. Assess adherence to AROM/PROM ex's. Monitor pt's tolerance to sitting & assess Apley's for IR/ER reaching before treatment to note progress. Assess need for manual therapy for Cervicothoracic junction and thoracic mobility. MH during neck/shoulder ROM ex 's if appropriate and to end Continued posture training head/neck/shoulder.
--- NOTE | 2021-06-08 17:39 | PT.OTN ---
Current Diagnoses Other chronic pain (06/08/21) Cervicalgia (06/08/21) Low back pain (06/08/21) Pain in thoracic spine (06/08/21) Muscle weakness (generalized) (06/08/21) Physical Therapy Treatment Note PT-OP-A Visit Information Start: 04/02/21 17:26 Freq: Status: Active Protocol: Document 06/08/21 09:05 LRN (Rec: 06/08/21 09:49 LRN [id number]) Out-Patient Physical Therapy Visit Information Visit Information Visit Type Treatment Note Visit Start Time 09:05 Visit Stop Time 09:47 Total Visit Minutes 52 Visit Number 13 Evaluation Information Evaluation Date 04/03/21 Precautions Precautions Controlled HBP, chronic back and neck pain, chronic sinusitis. PT-OP-B Current Condition Start: 04/02/21 17:26 Freq: Status: Active Protocol: Document 04/03/21 12:47 LRN (Rec: 04/03/21 13:35 LRN [id number]) Current Condition History of Current Condition Onset Date November 2020 Current Complaints Constant R neck pain that worsens with head movement. History of Current Condition Ongoing R Neck/bilateral shoulder pain that has progressively to the point she has pain with any movement of her head. At night, sometimes wakes every hour due to pain and sometimes can sleep 5-6 hours. Slight movements can cause increase in R neck pain. Prior Treatments and Tests Physical Therapy 2 yrs ago. 2019 Cortisone spinal injections in the neck that was not helpful. Treatment Goals Patient/Caregiver Goals Pt goal with therapy is to decrease pain to be able to sit in chair for 2 hours for movie, decrease constant to 0/ 10 and decrease pain with movement to 3/10. Prior Functional Status Baseline Function- ADL's Independent Baseline Function- Mobility Independent Baseline Function- Other Able to sit 2+ hours to watch a movie. Limited to light duty (vacuum, dishes, small grocery bags). Sometimes able to sleep. Current Functional Impairments (Reported) Functional Limitations- ADL's Limited sitting of 1 hour due to neck pain. Limited to light duty (vacuum, dishes, small grocery bags). Sleeping disruption variable. Personal Factors Other Personal Factors That May Effect Chronic R sinusitis causes Therapy/Recovery headaches and eye socket pain. PT-OP-C Subjective Start: 04/02/21 17:26 Freq: Status: Active Protocol: Document 06/08/21 09:05 LRN (Rec: 06/08/21 09:49 LRN [id number]) OP-PT Subjective Patient Comments Patient Comments Pt reporting her new fridge is not working. States she hurts at the base of the neck (area of C7-T1). Headache in R forehead and lateral head pain rated 3/10, feels it may be sinus related. Base of neck pain is 5/10. States she was able to tolerate sitting through a movie over the weekend that was 2 hours long. PT-OP-E Functional Tests Start: 04/02/21 17:26 Freq: Status: Active Protocol: Document 06/08/21 09:05 LRN (Rec: 06/08/21 09:49 LRN [id number]) Functional Tests Apley's Scratch Test Action 1- Left Behind shldr, spine of scapula Action 1- Right Behind shldr, spine of scapula Action 2- Left T3 Action 2- Right T3 Action 3- Left T5 Action 3- Right T10 PT-OP-H Neuro Start: 04/02/21 17:26 Freq: Status: Active Protocol: Document 04/03/21 12:47 LRN (Rec: 04/03/21 13:35 LRN [id number]) Sensation Evaluation Gross Sensation Gross Sensation WNL Deep Tendon Reflex & Clonus Assessment Deep Tendon Reflex Bilateral Tricep Deep Tendon Reflex 1+ Diminished Bilateral Bicep Deep Tendon Reflex 2+ Normal PT-OP-J Posture/Palpation/Skin Start: 04/02/21 17:26 Freq: Status: Active Protocol: Document 04/03/21 12:47 LRN (Rec: 04/03/21 13:35 LRN [id number]) Posture Evaluation Position Standing Head/C-Spine Posture Forward Head Shoulder Posture (R) Forward,(L) Elevated Comments Posture Comments Dowagers hump, Straighten upper thoracic spine. Palpation Assessment Location Upper thoracic spine Palpation Location T/S Palpation Findings Soft Tissue Tightness,Muscle Guarding Upper shoulders Palpation Location UT's Palpation Findings Soft Tissue Tightness, Tenderness Neck Palpation Location Posterior & R lateral neck Palpation Findings Soft Tissue Tightness, Tenderness PT-OP-K Range of Motion Start: 04/02/21 17:26 Freq: Status: Active Protocol: Document 05/19/21 08:23 LRN (Rec: 05/19/21 09:53 LRN [id number]) Cervical Spine Range of Motion Cervical Spine Active Degrees Rotation Left 60 Rotation Right 60 PT-OP-M Strength Start: 04/02/21 17:26 Freq: Status: Active Protocol: Document 04/03/21 12:47 LRN (Rec: 04/03/21 13:35 LRN [id number]) Cervical Spine Strength Cervical Spine Manual Muscle Testing Flexion (C1-2) 4 Good Extension 5 Normal Shoulder Strength Shoulder Manual Muscle Testing Right Flexion 4 Good Abduction (C5) 4+ Good+ External Rotation 4- Good- Internal Rotation 4 Good Left Flexion 4 Good Abduction (C5) 4+ Good+ External Rotation 4 Good Internal Rotation 5 Normal PT-OP-Q Treatments Start: 04/02/21 17:26 Freq: Status: Active Protocol: Document 06/08/21 09:05 LRN (Rec: 06/08/21 09:49 LRN [id number]) Cardio Equipment Recumbent Elliptical ([employer]) Duration (Minutes) 6 Resistance 3 Seat Position 6 Therapeutic Exercises Sitting Exercises C. Omar ext Sitting Exercise Name R C/S omar ext with fingertip pressure resist @ occiput. Side bilateral Reps/Minutes 5-10 secs H x 10 Comments Variable locations of head to obtain correct area of ms to strengthen. Neck ROM stretch Sitting Exercise Name Cervical Active rotation & SB stretch Side bilateral Reps/Minutes 6' Comments Pt needed cuing for hold stretch times. Shoulder horiz AD stretch Sitting Exercise Name Shoulder AD stretch Comments Mobilty (Apley's) assessed Shoulder IR stretch Sitting Exercise Name Reaching behind back stretch Side bilateral Comments Mobilty (Apley's) assessed Shoulder ER stretch Sitting Exercise Name Reaching behind head stretch Side bilateral Comments Mobilty (Apley's) assessed Manual Therapy Treatment Soft Tissue Mobilization T1-T3 Body Location PA of T1, T2 SP and L TP ( min rx needed) Mobilization Type Myofascial Release Intensity/Depth Moderate Body Position Supine Comments Pillows underneath. Anterior pressure in: upper sternum, Sternocostal joints & TP of R lower Cervical spine. Joint Mobilizations T1-T3 Joint R: T3, T2 MWM rot Direction Rot/PA Body Position Supine PT-OP-R Modalities Start: 04/02/21 17:26 Freq: Status: Active Protocol: Document 06/08/21 09:05 LRN (Rec: 06/08/21 09:49 LRN [id number]) Hot Pack/Cold Pack Treatment Cold Pack Location Neck/upper T/S Patient Position Hooklying Treatment Duration (minutes) 10 Patient Tolerance Good Comments Used with Hot Pack Location Chest Patient Position Hooklying Treatment Duration (minutes) 10 Patient Tolerance Good Comments Used with CP PT-OP-T Assessment and Plan Start: 04/02/21 17:26 Freq: Status: Active Protocol: Document 06/08/21 09:05 LRN (Rec: 06/08/21 09:49 LR [id number]) Physical Therapy Assessment Goals Four Impairment Constant bilateral upper shoulder pain rated 1-6/10. Impairment Initial Neck & shoulder Disability Index is 14/50 = 20 -39% impaired Short Term Goal (STG) Reduce bilateral upper shoulder pain to intermittent in nature. STG Duration 05/03/21 (05/15/21: MET GOAL ) Usp Goal (LTG) Decrease pain with movement to no greater than 3/10 to improve sleeping ability ( increase episodes of longer nights sleep. (05/12/21: Upper back pain 3- 4/10) (05/22/21: Neck pain is intermittent at no greater than 5). LTG Duration 06/16/21 (05/22/21: Pain no greater than 5/10, was 6/10) Three Impairment Omari shoulder mobility limiting movement due to pain (1-6/10) Impairment AROM (in deg's) in sitting: L shoulder: flex 153, Ext 60, AB 150, ER (at 0 deg's AB) 37 , IR (behind back) T6. R shoulder: flex 152, Ext 60, AB 155, ER (at 0 deg's AB) 42 , IR (behind back) L3. Initial UE QuickDASH score is 22.5 with 1 question missed ( indicates 20-39% impaired). Short Term Goal (STG) Pt will be independent with a HEP of shoulder PROM & AROM ex 's. STG Duration 05/03/21 (05/22/21: MET GOAL) Pipe Foreman Goal (LTG) Improve active bilateral shoulder mobility (in sitting) for improved function per UE QuickDASH score less than 20 ( Initial Score is 22.5 with one question not answered). (05/22/21: UE QuickDASH score 29.54 = 20-39% impaired). LTG Duration 06/16/21 Two Impairment Constant neck pain rated 1-6/ 10 Impairment Initial Neck & shoulder Disability Index is 14/50 = 20 -39% impaired Short Term Goal (STG) Reduce neck pain for pt perception of being intermittent in nature with pt able to sit in chair for 2 hours for relaxation or movie watching. (05/22/21: Neck pain is intermittent, sitting time 1/2 hour). (06/08/21: Neck pain tolerable to sit through a 2 hour movie ). STG Duration 05/03/21 (06/08/21: MET GOAL ) Pipe Foreman Goal (LTG) Decrease pain with improved function per neck/shoulder disability index score 9 or less. (05/22/21: No significant change with neck/shoulder disabiltiy index, neck pain decreased to greater than 5/10 ) LTG Duration 06/16/21 (05/22/21: No significant change in function , max neck pain 5/10) One Impairment Self care HEP needed Short Term Goal (STG) Review and update pt's current HEP. (04/17/21: Reviewed HEP of neck/shoulder stretches to update current HEP). (05/22/21: Reviewed & updated pt's current HEP of ROM and strengthening of shoulders) STG Duration 04/10/21 (05/22/21: MET GOAL Pipe Foreman Goal (LTG) Pt will be independent in a self care HEP to promote reduction of neck/shoulder pain and improve neck/shoulder mobility. (05/22/21: Completed review of pt's previous HEP of neck/ shoulder ROM and strengthening ex's) LTG Duration 06/16/21 (05/22/21: Progressed shoulder HEP) Progress Towards Goals Progress Comments STG #2 MET. Pt alble to sit through a 2 hr movie. Assessment Summary Assessment Pt doesn't recall days following last session. Overall her headache pain is less, neck remains the same. Cervical extensor strength are even in tone with isometric C. Ext. Pt improved enough to sit through a 2 hour movie. Pt mobility for reaching behind head and shoulders is symmetrical, but reaching behind the back is limited on R side by neck/ shoulder pain. Physical Therapy Plan Frequency and Duration Frequency of Treatment 2x/Week Plan of Care Start Date 05/22/21 Plan of Care End Date 07/08/21 Next Visit Focus/Plan Next Note Type Treatment Note Next Visit Plan Assess response to manual therapy at base of neck. Monitor adherence to AROM/PROM ex's. Monitor pt's tolerance to sitting & assess Apley's for IR/ER reaching before treatment to note progress. Assess need for manual therapy for Cervicothoracic junction and thoracic mobility. MH during neck/shoulder ROM ex 's if appropriate and to end Continued posture training head/neck/shoulder.
--- NOTE | 2021-06-19 16:02 | PT.OTN ---
Current Diagnoses Other chronic pain (06/19/21) Cervicalgia (06/19/21) Low back pain (06/19/21) Pain in thoracic spine (06/19/21) Muscle weakness (generalized) (06/19/21) Physical Therapy Treatment Note PT-OP-A Visit Information Start: 04/02/21 17:26 Freq: Status: Active Protocol: Document 06/19/21 09:05 LRN (Rec: 06/19/21 09:50 LRN [id number]) Out-Patient Physical Therapy Visit Information Visit Information Visit Type Treatment Note Visit Note 5th note since PN Visit Start Time 09:05 Visit Stop Time 09:57 Total Visit Minutes 52 Visit Number 14 Evaluation Information Evaluation Date 04/03/21 Precautions Precautions Controlled HBP, chronic back and neck pain, chronic sinusitis. PT-OP-B Current Condition Start: 04/02/21 17:26 Freq: Status: Active Protocol: Document 04/03/21 12:47 LRN (Rec: 04/03/21 13:35 LRN [id number]) Current Condition History of Current Condition Onset Date November 2020 Current Complaints Constant R neck pain that worsens with head movement. History of Current Condition Ongoing R Neck/bilateral shoulder pain that has progressively to the point she has pain with any movement of her head. At night, sometimes wakes every hour due to pain and sometimes can sleep 5-6 hours. Slight movements can cause increase in R neck pain. Prior Treatments and Tests Physical Therapy 2 yrs ago. 2019 Cortisone spinal injections in the neck that was not helpful. Treatment Goals Patient/Caregiver Goals Pt goal with therapy is to decrease pain to be able to sit in chair for 2 hours for movie, decrease constant to 0/ 10 and decrease pain with movement to 3/10. Prior Functional Status Baseline Function- ADL's Independent Baseline Function- Mobility Independent Baseline Function- Other Able to sit 2+ hours to watch a movie. Limited to light duty (vacuum, dishes, small grocery bags). Sometimes able to sleep. Current Functional Impairments (Reported) Functional Limitations- ADL's Limited sitting of 1 hour due to neck pain. Limited to light duty (vacuum, dishes, small grocery bags). Sleeping disruption variable. Personal Factors Other Personal Factors That May Effect Chronic R sinusitis causes Therapy/Recovery headaches and eye socket pain. PT-OP-C Subjective Start: 04/02/21 17:26 Freq: Status: Active Protocol: Document 06/19/21 09:05 LRN (Rec: 06/19/21 09:50 LRN [id number]) OP-PT Subjective Patient Comments Patient Comments Neck is doing better, but is sore in the lateral neck. The back is still bothering her ( C7-T2). Neck pain is 4/10, upper back is 3-4/10. No headache. PT-OP-E Functional Tests Start: 04/02/21 17:26 Freq: Status: Active Protocol: Document 06/19/21 09:05 LRN (Rec: 06/19/21 09:50 LRN [id number]) Functional Tests Apley's Scratch Test Action 1- Left Behind shldr, spine of scapula Action 1- Right Behind shldr, spine of scapula Action 2- Left T3 Action 2- Right T3 Action 3- Left T10 Action 3- Right T12 PT-OP-H Neuro Start: 04/02/21 17:26 Freq: Status: Active Protocol: Document 04/03/21 12:47 LRN (Rec: 04/03/21 13:35 LRN [id number]) Sensation Evaluation Gross Sensation Gross Sensation WNL Deep Tendon Reflex & Clonus Assessment Deep Tendon Reflex Bilateral Tricep Deep Tendon Reflex 1+ Diminished Bilateral Bicep Deep Tendon Reflex 2+ Normal PT-OP-J Posture/Palpation/Skin Start: 04/02/21 17:26 Freq: Status: Active Protocol: Document 04/03/21 12:47 LRN (Rec: 04/03/21 13:35 LRN [id number]) Posture Evaluation Position Standing Head/C-Spine Posture Forward Head Shoulder Posture (R) Forward,(L) Elevated Comments Posture Comments Dowagers hump, Straighten upper thoracic spine. Palpation Assessment Location Upper thoracic spine Palpation Location T/S Palpation Findings Soft Tissue Tightness,Muscle Guarding Upper shoulders Palpation Location UT's Palpation Findings Soft Tissue Tightness, Tenderness Neck Palpation Location Posterior & R lateral neck Palpation Findings Soft Tissue Tightness, Tenderness PT-OP-K Range of Motion Start: 04/02/21 17:26 Freq: Status: Active Protocol: Document 05/19/21 08:23 LRN (Rec: 05/19/21 09:53 LRN [id number]) Cervical Spine Range of Motion Cervical Spine Active Degrees Rotation Left 60 Rotation Right 60 PT-OP-M Strength Start: 04/02/21 17:26 Freq: Status: Active Protocol: Document 04/03/21 12:47 LRN (Rec: 04/03/21 13:35 LRN [id number]) Cervical Spine Strength Cervical Spine Manual Muscle Testing Flexion (C1-2) 4 Good Extension 5 Normal Shoulder Strength Shoulder Manual Muscle Testing Right Flexion 4 Good Abduction (C5) 4+ Good+ External Rotation 4- Good- Internal Rotation 4 Good Left Flexion 4 Good Abduction (C5) 4+ Good+ External Rotation 4 Good Internal Rotation 5 Normal PT-OP-Q Treatments Start: 04/02/21 17:26 Freq: Status: Active Protocol: Document 06/19/21 09:05 LRN (Rec: 06/19/21 09:50 LRN [id number]) Cardio Equipment Recumbent Elliptical ([employer]) Duration (Minutes) 7 Resistance 3 Seat Position 6 Therapeutic Exercises Supine Exercises Shouulder ER/IR Supine Exercise Name Stretch Shldr ER/IR Side bilateral Reps/Minutes 3' Shoulder Horiz AB/AD Supine Exercise Name Wand stretch Side bilateral Reps/Minutes 4' Shoulder flex Supine Exercise Name Shoulder flex stretch with cane Side bilateral Equipment Used Cane Reps/Minutes 10 - 3' Sitting Exercises Shoulder IR stretch Sitting Exercise Name Reaching behind back stretch Side bilateral Equipment Used Towel Comments Mobilty (Apley's) assessed Standing Exercises Hands Table height Standing Exercise Name Hands on table, trunk ext rocking back/forth Reps/Minutes 3' Other Exercises 4pt ex Other Exercise Name Hands/knees trunk ext rocking back/forth Reps/Minutes 3' Manual Therapy Treatment Soft Tissue Mobilization Neck Body Location Right: UT, anterior scalenes, c/s paraspinals, TrP of Lev Scapula Mobilization Type Myofascial Release,Sustained Pressure,Trigger Point Release Intensity/Depth Superficial to moderate Body Position Supine Comments Lying on pillows Joint Mobilizations T1-T3 Joint R: T3, T2 MWM rot Direction Rot/PA Body Position Supine PT-OP-R Modalities Start: 04/02/21 17:26 Freq: Status: Active Protocol: Document 06/19/21 09:05 LRN (Rec: 06/19/21 09:50 LRN [id number]) Hot Pack/Cold Pack Treatment Cold Pack Location Neck/upper T/S Patient Position Hooklying Treatment Duration (minutes) 10 Patient Tolerance Good Comments Used with MH Hot Pack Location Back Patient Position Hooklying Treatment Duration (minutes) 10 Patient Tolerance Good Comments Used with CP PT-OP-T Assessment and Plan Start: 04/02/21 17:26 Freq: Status: Active Protocol: Document 06/19/21 09:05 LRN (Rec: 06/19/21 09:50 LRN [id number]) Physical Therapy Assessment Goals Four Impairment Constant bilateral upper shoulder pain rated 1-6/10. Impairment Initial Neck & shoulder Disability Index is 14/50 = 20 -39% impaired Short Term Goal (STG) Reduce bilateral upper shoulder pain to intermittent in nature. STG Duration 05/03/21 (05/15/21: MET GOAL ) Custodial Goal (LTG) Decrease pain with movement to no greater than 3/10 to improve sleeping ability ( increase episodes of longer nights sleep. (05/12/21: Upper back pain 3- 4/10) (05/22/21: Neck pain is intermittent at no greater than 5). (06/19/21: Neck pain 4/10) LTG Duration 06/16/21 (06/19/21: Improving , Neck Pain 4/10, was 6/10) Three Impairment Omari shoulder mobility limiting movement due to pain (1-6/10) Impairment AROM (in deg's) in sitting: L shoulder: flex 153, Ext 60, AB 150, ER (at 0 deg's AB) 37 , IR (behind back) T6. R shoulder: flex 152, Ext 60, AB 155, ER (at 0 deg's AB) 42 , IR (behind back) L3. Initial UE QuickDASH score is 22.5 with 1 question missed ( indicates 20-39% impaired). Short Term Goal (STG) Pt will be independent with a HEP of shoulder PROM & AROM ex 's. STG Duration 05/03/21 (05/22/21: MET GOAL) Custodial Goal (LTG) Improve active bilateral shoulder mobility (in sitting) for improved function per UE QuickDASH score less than 20 ( Initial Score is 22.5 with one question not answered). (05/22/21: UE QuickDASH score 29.54 = 20-39% impaired). LTG Duration 06/16/21 Two Impairment Constant neck pain rated 1-6/ 10 Impairment Initial Neck & shoulder Disability Index is 14/50 = 20 -39% impaired Short Term Goal (STG) Reduce neck pain for pt perception of being intermittent in nature with pt able to sit in chair for 2 hours for relaxation or movie watching. (05/22/21: Neck pain is intermittent, sitting time 1/2 hour). (06/08/21: Neck pain tolerable to sit through a 2 hour movie ). STG Duration 05/03/21 (06/08/21: MET GOAL ) Custodial Goal (LTG) Decrease pain with improved function per neck/shoulder disability index score 9 or less. (05/22/21: No significant change with neck/shoulder disabiltiy index, neck pain decreased to greater than 5/10 ) LTG Duration 06/16/21 (05/22/21: No significant change in function , max neck pain 5/10) One Impairment Self care HEP needed Short Term Goal (STG) Review and update pt's current HEP. (04/17/21: Reviewed HEP of neck/shoulder stretches to update current HEP). (05/22/21: Reviewed & updated pt's current HEP of ROM and strengthening of shoulders) STG Duration 04/10/21 (05/22/21: MET GOAL Custodial Goal (LTG) Pt will be independent in a self care HEP to promote reduction of neck/shoulder pain and improve neck/shoulder mobility. (05/22/21: Completed review of pt's previous HEP of neck/ shoulder ROM and strengthening ex's) LTG Duration 06/16/21 (05/22/21: Progressed shoulder HEP) Assessment Summary Assessment Pt shows decreased R shoulder mobility for IR since last measured (06/08/21). Pt needs phys/v cuing for shoulder IR/ ER stretch, indicating poor recall of exercises. Her upper back pain is decreasing, with R lateral neck pain today her primary complaint. Physical Therapy Plan Frequency and Duration Frequency of Treatment 2x/Week Plan of Care Start Date 05/22/21 Plan of Care End Date 07/08/21 Next Visit Focus/Plan Next Note Type Treatment Note Next Visit Plan Assess response to manual therapy at base of neck. Monitor adherence to AROM/PROM ex's. Monitor pt's tolerance to sitting & occasionlly assess Apley's for IR/ER reaching before/after treatment to note progress. Assess need for manual therapy for Cervicothoracic junction and thoracic mobility. MH during neck/shoulder ROM ex 's if appropriate and to end Continued posture training head/neck/shoulder.
--- NOTE | 2021-06-22 12:09 | PT.OTN ---
Current Diagnoses Other chronic pain (06/22/21) Cervicalgia (06/22/21) Low back pain (06/22/21) Pain in thoracic spine (06/22/21) Muscle weakness (generalized) (06/22/21) Physical Therapy Treatment Note PT-OP-A Visit Information Start: 04/02/21 17:26 Freq: Status: Active Protocol: Document 06/22/21 09:02 LRN (Rec: 06/22/21 09:07 LRN [id number]) Out-Patient Physical Therapy Visit Information Visit Information Visit Type Treatment Note Visit Note 6th note since PN Visit Start Time 09:02 Visit Stop Time 09:41 Total Visit Minutes 51 Visit Number 15 Evaluation Information Evaluation Date 04/03/21 Precautions Precautions Controlled HBP, chronic back and neck pain, chronic sinusitis. PT-OP-B Current Condition Start: 04/02/21 17:26 Freq: Status: Active Protocol: Document 04/03/21 12:47 LRN (Rec: 04/03/21 13:35 LRN [id number]) Current Condition History of Current Condition Onset Date November 2020 Current Complaints Constant R neck pain that worsens with head movement. History of Current Condition Ongoing R Neck/bilateral shoulder pain that has progressively to the point she has pain with any movement of her head. At night, sometimes wakes every hour due to pain and sometimes can sleep 5-6 hours. Slight movements can cause increase in R neck pain. Prior Treatments and Tests Physical Therapy 2 yrs ago. 2019 Cortisone spinal injections in the neck that was not helpful. Treatment Goals Patient/Caregiver Goals Pt goal with therapy is to decrease pain to be able to sit in chair for 2 hours for movie, decrease constant to 0/ 10 and decrease pain with movement to 3/10. Prior Functional Status Baseline Function- ADL's Independent Baseline Function- Mobility Independent Baseline Function- Other Able to sit 2+ hours to watch a movie. Limited to light duty (vacuum, dishes, small grocery bags). Sometimes able to sleep. Current Functional Impairments (Reported) Functional Limitations- ADL's Limited sitting of 1 hour due to neck pain. Limited to light duty (vacuum, dishes, small grocery bags). Sleeping disruption variable. Personal Factors Other Personal Factors That May Effect Chronic R sinusitis causes Therapy/Recovery headaches and eye socket pain. PT-OP-C Subjective Start: 04/02/21 17:26 Freq: Status: Active Protocol: Document 06/22/21 09:02 LRN (Rec: 06/22/21 09:07 LRN [id number]) OP-PT Subjective Patient Comments Patient Comments Pt indicates R neck feels okay , back pain (C7-T2) pain is 5/ 10. PT-OP-E Functional Tests Start: 04/02/21 17:26 Freq: Status: Active Protocol: Document 06/19/21 09:05 LRN (Rec: 06/19/21 09:50 LRN [id number]) Functional Tests Apley's Scratch Test Action 1- Left Behind shldr, spine of scapula Action 1- Right Behind shldr, spine of scapula Action 2- Left T3 Action 2- Right T3 Action 3- Left T10 Action 3- Right T12 PT-OP-H Neuro Start: 04/02/21 17:26 Freq: Status: Active Protocol: Document 04/03/21 12:47 LRN (Rec: 04/03/21 13:35 LRN [id number]) Sensation Evaluation Gross Sensation Gross Sensation WNL Deep Tendon Reflex & Clonus Assessment Deep Tendon Reflex Bilateral Tricep Deep Tendon Reflex 1+ Diminished Bilateral Bicep Deep Tendon Reflex 2+ Normal PT-OP-J Posture/Palpation/Skin Start: 04/02/21 17:26 Freq: Status: Active Protocol: Document 04/03/21 12:47 LRN (Rec: 04/03/21 13:35 LRN [id number]) Posture Evaluation Position Standing Head/C-Spine Posture Forward Head Shoulder Posture (R) Forward,(L) Elevated Comments Posture Comments Dowagers hump, Straighten upper thoracic spine. Palpation Assessment Location Upper thoracic spine Palpation Location T/S Palpation Findings Soft Tissue Tightness,Muscle Guarding Upper shoulders Palpation Location UT's Palpation Findings Soft Tissue Tightness, Tenderness Neck Palpation Location Posterior & R lateral neck Palpation Findings Soft Tissue Tightness, Tenderness PT-OP-K Range of Motion Start: 04/02/21 17:26 Freq: Status: Active Protocol: Document 05/19/21 08:23 LRN (Rec: 05/19/21 09:53 LRN [id number]) Cervical Spine Range of Motion Cervical Spine Active Degrees Rotation Left 60 Rotation Right 60 PT-OP-M Strength Start: 04/02/21 17:26 Freq: Status: Active Protocol: Document 04/03/21 12:47 LRN (Rec: 04/03/21 13:35 LRN [id number]) Cervical Spine Strength Cervical Spine Manual Muscle Testing Flexion (C1-2) 4 Good Extension 5 Normal Shoulder Strength Shoulder Manual Muscle Testing Right Flexion 4 Good Abduction (C5) 4+ Good+ External Rotation 4- Good- Internal Rotation 4 Good Left Flexion 4 Good Abduction (C5) 4+ Good+ External Rotation 4 Good Internal Rotation 5 Normal PT-OP-Q Treatments Start: 04/02/21 17:26 Freq: Status: Active Protocol: Document 06/22/21 09:02 LRN (Rec: 06/22/21 09:15 LRN [id number]) Cardio Equipment Upper Body Ergometer (UBE) Duration (Minutes) 4 RPM 0 Seat Position 12 Height 2.5 Recumbent Stepper (Sci-Fit) Duration (Minutes) 4 Resistance 3 Seat Position 5 Therapeutic Exercises Supine Exercises Neck Elong w/omar hold Supine Exercise Name Omar neck elong hold off fingers Reps/Minutes 3 hold x 5 Sitting Exercises Scapular retraction Sitting Exercise Name Arms in ext/Neck elongation/ scapular pinch Reps/Minutes 3' Comments V cuing for neck elong & hold of arms in ext Shoulder IR stretch Sitting Exercise Name Reaching behind back stretch Side bilateral Equipment Used Strap Reps/Minutes 4' Manual Therapy Treatment Soft Tissue Mobilization T1-T3 Body Location PA of T1, T2 SP and L TP ( min rx needed) Mobilization Type Myofascial Release Intensity/Depth Moderate Body Position Supine Comments Pillows underneath. Anterior pressure in: upper sternum, Sternocostal joints & TP of R lower Cervical spine. Joint Mobilizations T1-T3 Joint R: T3, T2 MWM rot Direction Rot/PA Body Position Supine 1st rib Joint Inferior glide right, Balancing with SP Grade III Body Position Supine PT-OP-R Modalities Start: 04/02/21 17:26 Freq: Status: Active Protocol: Document 06/22/21 09:02 LRN (Rec: 06/22/21 09:15 LRN [id number]) Hot Pack/Cold Pack Treatment Cold Pack Location Neck/upper T/S Patient Position Hooklying Treatment Duration (minutes) 10 Patient Tolerance Good Comments Used with Hot Pack Location Back Patient Position Hooklying Treatment Duration (minutes) 10 Patient Tolerance Good Comments Used with CP PT-OP-T Assessment and Plan Start: 04/02/21 17:26 Freq: Status: Active Protocol: Document 06/22/21 09:02 LRN (Rec: 06/22/21 09:07 LRN [id number]) Physical Therapy Assessment Goals Four Impairment Constant bilateral upper shoulder pain rated 1-6/10. Impairment Initial Neck & shoulder Disability Index is 14/50 = 20 -39% impaired Short Term Goal (STG) Reduce bilateral upper shoulder pain to intermittent in nature. STG Duration 05/03/21 (05/15/21: MET GOAL ) Medical Device Engineer Goal (LTG) Decrease pain with movement to no greater than 3/10 to improve sleeping ability ( increase episodes of longer nights sleep. (05/12/21: Upper back pain 3- 4/10) (05/22/21: Neck pain is intermittent at no greater than 5). (06/19/21: Neck pain 4/10) LTG Duration 06/16/21 (06/19/21: Improving , Neck Pain 4/10, was 6/10) Three Impairment Omari shoulder mobility limiting movement due to pain (1-6/10) Impairment AROM (in deg's) in sitting: L shoulder: flex 153, Ext 60, AB 150, ER (at 0 deg's AB) 37 , IR (behind back) T6. R shoulder: flex 152, Ext 60, AB 155, ER (at 0 deg's AB) 42 , IR (behind back) L3. Initial UE QuickDASH score is 22.5 with 1 question missed ( indicates 20-39% impaired). Short Term Goal (STG) Pt will be independent with a HEP of shoulder PROM & AROM ex 's. STG Duration 05/03/21 (05/22/21: MET GOAL) Medical Device Engineer Goal (LTG) Improve active bilateral shoulder mobility (in sitting) for improved function per UE QuickDASH score less than 20 ( Initial Score is 22.5 with one question not answered). (05/22/21: UE QuickDASH score 29.54 = 20-39% impaired). LTG Duration 06/16/21 Two Impairment Constant neck pain rated 1-6/ 10 Impairment Initial Neck & shoulder Disability Index is 14/50 = 20 -39% impaired Short Term Goal (STG) Reduce neck pain for pt perception of being intermittent in nature with pt able to sit in chair for 2 hours for relaxation or movie watching. (05/22/21: Neck pain is intermittent, sitting time 1/2 hour). (06/08/21: Neck pain tolerable to sit through a 2 hour movie ). STG Duration 05/03/21 (06/08/21: MET GOAL ) [facility] Goal (LTG) Decrease pain with improved function per neck/shoulder disability index score 9 or less. (05/22/21: No significant change with neck/shoulder disabiltiy index, neck pain decreased to greater than 5/10 ) LTG Duration 06/16/21 (05/22/21: No significant change in function , max neck pain 5/10) One Impairment Self care HEP needed Short Term Goal (STG) Review and update pt's current HEP. (04/17/21: Reviewed HEP of neck/shoulder stretches to update current HEP). (05/22/21: Reviewed & updated pt's current HEP of ROM and strengthening of shoulders) STG Duration 04/10/21 (05/22/21: MET GOAL [facility] Goal (LTG) Pt will be independent in a self care HEP to promote reduction of neck/shoulder pain and improve neck/shoulder mobility. (05/22/21: Completed review of pt's previous HEP of neck/ shoulder ROM and strengthening ex's) LTG Duration 06/16/21 (05/22/21: Progressed shoulder HEP) Progress Towards Goals Progress Comments Progressing pt tolerance to neck/shoulder exercise. Assessment Summary Assessment Pt can't recall how she felt after last session, other than always helpful for a few hours. Pt showed good tolerance to new Neck/shoulder strengthening (UBE) with neck in elongation. Pt STM improved on R side with less tone noted. Physical Therapy Plan Frequency and Duration Frequency of Treatment 2x/Week Plan of Care Start Date 05/22/21 Plan of Care End Date 07/08/21 Next Visit Focus/Plan Next Note Type Treatment Note Next Visit Plan Assess response to manual therapy at base of neck. Monitor adherence to AROM/PROM ex's. Monitor pt's tolerance to sitting & occasionlly assess Apley's for IR/ER reaching before/after treatment to note progress. Assess need for manual therapy for Cervicothoracic junction and thoracic mobility. MH during neck/shoulder ROM ex 's if appropriate and to end Continued posture training head/neck/shoulder.
--- NOTE | 2021-06-26 10:07 | PT.OTN ---
Current Diagnoses Other chronic pain (06/26/21) Cervicalgia (06/26/21) Low back pain (06/26/21) Pain in thoracic spine (06/26/21) Muscle weakness (generalized) (06/26/21) Physical Therapy Treatment Note PT-OP-A Visit Information Start: 04/02/21 17:26 Freq: Status: Active Protocol: Document 06/26/21 09:02 LRN (Rec: 06/26/21 09:59 LRN [id number]) Out-Patient Physical Therapy Visit Information Visit Information Visit Type Treatment Note Visit Start Time 09:02 Visit Stop Time 09:54 Total Visit Minutes 52 Visit Number 16 Evaluation Information Evaluation Date 04/03/21 Precautions Precautions Controlled HBP, chronic back and neck pain, chronic sinusitis. PT-OP-B Current Condition Start: 04/02/21 17:26 Freq: Status: Active Protocol: Document 04/03/21 12:47 LRN (Rec: 04/03/21 13:35 LRN [id number]) Current Condition History of Current Condition Onset Date November 2020 Current Complaints Constant R neck pain that worsens with head movement. History of Current Condition Ongoing R Neck/bilateral shoulder pain that has progressively to the point she has pain with any movement of her head. At night, sometimes wakes every hour due to pain and sometimes can sleep 5-6 hours. Slight movements can cause increase in R neck pain. Prior Treatments and Tests Physical Therapy 2 yrs ago. 2019 Cortisone spinal injections in the neck that was not helpful. Treatment Goals Patient/Caregiver Goals Pt goal with therapy is to decrease pain to be able to sit in chair for 2 hours for movie, decrease constant to 0/ 10 and decrease pain with movement to 3/10. Prior Functional Status Baseline Function- ADL's Independent Baseline Function- Mobility Independent Baseline Function- Other Able to sit 2+ hours to watch a movie. Limited to light duty (vacuum, dishes, small grocery bags). Sometimes able to sleep. Current Functional Impairments (Reported) Functional Limitations- ADL's Limited sitting of 1 hour due to neck pain. Limited to light duty (vacuum, dishes, small grocery bags). Sleeping disruption variable. Personal Factors Other Personal Factors That May Effect Chronic R sinusitis causes Therapy/Recovery headaches and eye socket pain. PT-OP-C Subjective Start: 04/02/21 17:26 Freq: Status: Active Protocol: Document 06/26/21 09:02 LRN (Rec: 06/26/21 09:59 LRN [id number]) OP-PT Subjective Patient Comments Patient Comments States she has upper back pain 3/10 & R Supraoccipital pain/ headache. Found out she has a tooth infection. Covid booster shot 3 days ago so L shoulder was a little sore. Not really sore today. PT-OP-E Functional Tests Start: 04/02/21 17:26 Freq: Status: Active Protocol: Document 06/19/21 09:05 LRN (Rec: 06/19/21 09:50 LRN [id number]) Functional Tests Apley's Scratch Test Action 1- Left Behind shldr, spine of scapula Action 1- Right Behind shldr, spine of scapula Action 2- Left T3 Action 2- Right T3 Action 3- Left T10 Action 3- Right T12 PT-OP-H Neuro Start: 04/02/21 17:26 Freq: Status: Active Protocol: Document 04/03/21 12:47 LRN (Rec: 04/03/21 13:35 LRN [id number]) Sensation Evaluation Gross Sensation Gross Sensation WNL Deep Tendon Reflex & Clonus Assessment Deep Tendon Reflex Bilateral Tricep Deep Tendon Reflex 1+ Diminished Bilateral Bicep Deep Tendon Reflex 2+ Normal PT-OP-J Posture/Palpation/Skin Start: 04/02/21 17:26 Freq: Status: Active Protocol: Document 04/03/21 12:47 LRN (Rec: 04/03/21 13:35 LRN [id number]) Posture Evaluation Position Standing Head/C-Spine Posture Forward Head Shoulder Posture (R) Forward,(L) Elevated Comments Posture Comments Dowagers hump, Straighten upper thoracic spine. Palpation Assessment Location Upper thoracic spine Palpation Location T/S Palpation Findings Soft Tissue Tightness,Muscle Guarding Upper shoulders Palpation Location UT's Palpation Findings Soft Tissue Tightness, Tenderness Neck Palpation Location Posterior & R lateral neck Palpation Findings Soft Tissue Tightness, Tenderness PT-OP-K Range of Motion Start: 04/02/21 17:26 Freq: Status: Active Protocol: Document 05/19/21 08:23 LRN (Rec: 05/19/21 09:53 LRN [id number]) Cervical Spine Range of Motion Cervical Spine Active Degrees Rotation Left 60 Rotation Right 60 PT-OP-M Strength Start: 04/02/21 17:26 Freq: Status: Active Protocol: Document 04/03/21 12:47 LRN (Rec: 04/03/21 13:35 LRN [id number]) Cervical Spine Strength Cervical Spine Manual Muscle Testing Flexion (C1-2) 4 Good Extension 5 Normal Shoulder Strength Shoulder Manual Muscle Testing Right Flexion 4 Good Abduction (C5) 4+ Good+ External Rotation 4- Good- Internal Rotation 4 Good Left Flexion 4 Good Abduction (C5) 4+ Good+ External Rotation 4 Good Internal Rotation 5 Normal PT-OP-Q Treatments Start: 04/02/21 17:26 Freq: Status: Active Protocol: Document 06/26/21 09:02 LRN (Rec: 06/26/21 09:59 LRN [id number]) Cardio Equipment Upper Body Ergometer (UBE) Duration (Minutes) 6 RPM 75 Seat Position 11 Height 2.5 Recumbent Elliptical (Biodex) Duration (Minutes) 4 Resistance 3 Seat Position 6 Therapeutic Exercises Sitting Exercises Overhead marcella Sitting Exercise Name Shoulder flex Side bilateral Reps/Minutes 3' Standing Exercises Shoulder ER/Head lift Standing Exercise Name Shoulder ER with head/chest lift Side bilateral Reps/Minutes 10x Shoulder IR stretclh Standing Exercise Name IR stretch behind back w/belt Side bilateral Equipment Used Gait belt Reps/Minutes 3' x 2' Comments Stretch after marcella and after ER strengthening Shoulder flex stretch Standing Exercise Name Omari Shoulder flex w/cane Side bilateral Reps/Minutes 3 Hold x 15x Self-Care/Home Management Treatment Education Patient Education Home Exercise Program Activities Self-Care/Home Management Activities Issued & reviewed HEP: Standing quadraped thoracic ext (rocking forward on hand and standing cat/camel motion. PT-OP-R Modalities Start: 04/02/21 17:26 Freq: Status: Active Protocol: Document 06/22/21 09:02 LRN (Rec: 06/22/21 09:15 LRN [id number]) Hot Pack/Cold Pack Treatment Cold Pack Location Neck/upper T/S Patient Position Hooklying Treatment Duration (minutes) 10 Patient Tolerance Good Comments Used with Hot Pack Location Back Patient Position Hooklying Treatment Duration (minutes) 10 Patient Tolerance Good Comments Used with CP PT-OP-T Assessment and Plan Start: 04/02/21 17:26 Freq: Status: Active Protocol: Document 06/26/21 09:02 LRN (Rec: 06/26/21 09:59 LRN [id number]) Physical Therapy Assessment Goals Four Impairment Constant bilateral upper shoulder pain rated 1-6/10. Impairment Initial Neck & shoulder Disability Index is 14/50 = 20 -39% impaired Short Term Goal (STG) Reduce bilateral upper shoulder pain to intermittent in nature. STG Duration 05/03/21 (05/15/21: MET GOAL ) [facility] Goal (LTG) Decrease pain with movement to no greater than 3/10 to improve sleeping ability ( increase episodes of longer nights sleep. (05/12/21: Upper back pain 3- 4/10) (05/22/21: Neck pain is intermittent at no greater than 5). (06/19/21: Neck pain 4/10) LTG Duration 06/16/21 (: Improving, Neck Pain 3/10, was 4/10) Three Impairment Omari shoulder mobility limiting movement due to pain (1-6/10) Impairment AROM (in deg's) in sitting: L shoulder: flex 153, Ext 60, AB 150, ER (at 0 deg's AB) 37 , IR (behind back) T6. R shoulder: flex 152, Ext 60, AB 155, ER (at 0 deg's AB) 42 , IR (behind back) L3. Initial UE QuickDASH score is 22.5 with 1 question missed ( indicates 20-39% impaired). Short Term Goal (STG) Pt will be independent with a HEP of shoulder PROM & AROM ex 's. STG Duration 05/03/21 (05/22/21: MET GOAL) [facility] Goal (LTG) Improve active bilateral shoulder mobility (in sitting) for improved function per UE QuickDASH score less than 20 ( Initial Score is 22.5 with one question not answered). (05/22/21: UE QuickDASH score 29.54 = 20-39% impaired). LTG Duration 06/16/21 Two Impairment Constant neck pain rated 1-6/ 10 Impairment Initial Neck & shoulder Disability Index is 14/50 = 20 -39% impaired Short Term Goal (STG) Reduce neck pain for pt perception of being intermittent in nature with pt able to sit in chair for 2 hours for relaxation or movie watching. (05/22/21: Neck pain is intermittent, sitting time 1/2 hour). (06/08/21: Neck pain tolerable to sit through a 2 hour movie ). STG Duration 05/03/21 (06/08/21: MET GOAL ) Director Of Extension Work Goal (LTG) Decrease pain with improved function per neck/shoulder disability index score 9 or less. (05/22/21: No significant change with neck/shoulder disabiltiy index, neck pain decreased to greater than 5/10 ) LTG Duration 06/16/21 (05/22/21: No significant change in function , max neck pain 5/10) One Impairment Self care HEP needed Short Term Goal (STG) Review and update pt's current HEP. (04/17/21: Reviewed HEP of neck/shoulder stretches to update current HEP). (05/22/21: Reviewed & updated pt's current HEP of ROM and strengthening of shoulders) STG Duration 04/10/21 (05/22/21: MET GOAL [facility] Goal (LTG) Pt will be independent in a self care HEP to promote reduction of neck/shoulder pain and improve neck/shoulder mobility. (05/22/21: Completed review of pt's previous HEP of neck/ shoulder ROM and strengthening ex's) (06/26/21: Added to HEP standing quadraped: thoracic ext & cat/camel) LTG Duration 06/16/21 (06/26/21: Progressed shoulder HEP) Progress Towards Goals Progress Comments UB (C7-T2) pain decreased for improved sleep last night. Progressed HEP. Assessment Summary Assessment Pt still having pain in upper back, but less, and appears to be sleeping better. R side of neck has increased tone, mildly decreased after treatment. Improved mobility and posturing/positioning after manual therapy. Cervical mobility appears to be only slightly restricted with R rot & L SB due to R lateral neck tightness. Physical Therapy Plan Frequency and Duration Frequency of Treatment 2x/Week Plan of Care Start Date 05/22/21 Plan of Care End Date 07/08/21 Next Visit Focus/Plan Next Note Type Treatment Note Next Visit Plan Assess UE QUICKDASH & response to last treatment with comfort level of going to MV shopoping after therapy. Monitor adherence to AROM/PROM ex's. Monitor pt's tolerance to sitting & occasionlly assess Apley's for IR/ER reaching before/after treatment to note progress. Assess need for manual therapy for Cervicothoracic junction and thoracic mobility. MH during neck/shoulder ROM ex 's if appropriate and to end Continued posture training head/neck/shoulder.
--- NOTE | 2021-06-26 10:17 | PT.OTN ---
Current Diagnoses Other chronic pain (06/26/21) Cervicalgia (06/26/21) Low back pain (06/26/21) Pain in thoracic spine (06/26/21) Muscle weakness (generalized) (06/26/21) Physical Therapy Treatment Note PT-OP-A Visit Information Start: 04/02/21 17:26 Freq: Status: Active Protocol: Document 06/26/21 09:02 LRN (Rec: 06/26/21 09:59 LRN [id number]) Out-Patient Physical Therapy Visit Information Visit Information Visit Type Treatment Note Visit Start Time 09:02 Visit Stop Time 09:54 Total Visit Minutes 52 Visit Number 16 Evaluation Information Evaluation Date 04/03/21 Precautions Precautions Controlled HBP, chronic back and neck pain, chronic sinusitis. PT-OP-B Current Condition Start: 04/02/21 17:26 Freq: Status: Active Protocol: Document 04/03/21 12:47 LRN (Rec: 04/03/21 13:35 LRN [id number]) Current Condition History of Current Condition Onset Date November 2020 Current Complaints Constant R neck pain that worsens with head movement. History of Current Condition Ongoing R Neck/bilateral shoulder pain that has progressively to the point she has pain with any movement of her head. At night, sometimes wakes every hour due to pain and sometimes can sleep 5-6 hours. Slight movements can cause increase in R neck pain. Prior Treatments and Tests Physical Therapy 2 yrs ago. 2019 Cortisone spinal injections in the neck that was not helpful. Treatment Goals Patient/Caregiver Goals Pt goal with therapy is to decrease pain to be able to sit in chair for 2 hours for movie, decrease constant to 0/ 10 and decrease pain with movement to 3/10. Prior Functional Status Baseline Function- ADL's Independent Baseline Function- Mobility Independent Baseline Function- Other Able to sit 2+ hours to watch a movie. Limited to light duty (vacuum, dishes, small grocery bags). Sometimes able to sleep. Current Functional Impairments (Reported) Functional Limitations- ADL's Limited sitting of 1 hour due to neck pain. Limited to light duty (vacuum, dishes, small grocery bags). Sleeping disruption variable. Personal Factors Other Personal Factors That May Effect Chronic R sinusitis causes Therapy/Recovery headaches and eye socket pain. PT-OP-C Subjective Start: 04/02/21 17:26 Freq: Status: Active Protocol: Document 06/26/21 09:02 LRN (Rec: 06/26/21 09:59 LRN [id number]) OP-PT Subjective Patient Comments Patient Comments States she has upper back pain 3/10 & R Supraoccipital pain/ headache. Found out she has a tooth infection. Covid booster shot 3 days ago so L shoulder was a little sore. Not really sore today. PT-OP-E Functional Tests Start: 04/02/21 17:26 Freq: Status: Active Protocol: Document 06/19/21 09:05 LRN (Rec: 06/19/21 09:50 LRN [id number]) Functional Tests Apley's Scratch Test Action 1- Left Behind shldr, spine of scapula Action 1- Right Behind shldr, spine of scapula Action 2- Left T3 Action 2- Right T3 Action 3- Left T10 Action 3- Right T12 PT-OP-H Neuro Start: 04/02/21 17:26 Freq: Status: Active Protocol: Document 04/03/21 12:47 LRN (Rec: 04/03/21 13:35 LRN [id number]) Sensation Evaluation Gross Sensation Gross Sensation WNL Deep Tendon Reflex & Clonus Assessment Deep Tendon Reflex Bilateral Tricep Deep Tendon Reflex 1+ Diminished Bilateral Bicep Deep Tendon Reflex 2+ Normal PT-OP-J Posture/Palpation/Skin Start: 04/02/21 17:26 Freq: Status: Active Protocol: Document 04/03/21 12:47 LRN (Rec: 04/03/21 13:35 LRN [id number]) Posture Evaluation Position Standing Head/C-Spine Posture Forward Head Shoulder Posture (R) Forward,(L) Elevated Comments Posture Comments Dowagers hump, Straighten upper thoracic spine. Palpation Assessment Location Upper thoracic spine Palpation Location T/S Palpation Findings Soft Tissue Tightness,Muscle Guarding Upper shoulders Palpation Location UT's Palpation Findings Soft Tissue Tightness, Tenderness Neck Palpation Location Posterior & R lateral neck Palpation Findings Soft Tissue Tightness, Tenderness PT-OP-K Range of Motion Start: 04/02/21 17:26 Freq: Status: Active Protocol: Document 05/19/21 08:23 LRN (Rec: 05/19/21 09:53 LRN [id number]) Cervical Spine Range of Motion Cervical Spine Active Degrees Rotation Left 60 Rotation Right 60 PT-OP-M Strength Start: 04/02/21 17:26 Freq: Status: Active Protocol: Document 04/03/21 12:47 LRN (Rec: 04/03/21 13:35 LRN [id number]) Cervical Spine Strength Cervical Spine Manual Muscle Testing Flexion (C1-2) 4 Good Extension 5 Normal Shoulder Strength Shoulder Manual Muscle Testing Right Flexion 4 Good Abduction (C5) 4+ Good+ External Rotation 4- Good- Internal Rotation 4 Good Left Flexion 4 Good Abduction (C5) 4+ Good+ External Rotation 4 Good Internal Rotation 5 Normal PT-OP-Q Treatments Start: 04/02/21 17:26 Freq: Status: Active Protocol: Document 06/26/21 09:02 LRN (Rec: 06/26/21 09:59 LRN [id number]) Cardio Equipment Upper Body Ergometer (UBE) Duration (Minutes) 6 RPM 75 Seat Position 11 Height 2.5 Recumbent Elliptical (Biodex) Duration (Minutes) 4 Resistance 3 Seat Position 6 Therapeutic Exercises Sitting Exercises Overhead marcella Sitting Exercise Name Shoulder flex Side bilateral Reps/Minutes 3' Standing Exercises Shoulder ER/Head lift Standing Exercise Name Shoulder ER with head/chest lift Side bilateral Reps/Minutes 10x Shoulder IR stretclh Standing Exercise Name IR stretch behind back w/belt Side bilateral Equipment Used Gait belt Reps/Minutes 3' x 2' Comments Stretch after marcella and after ER strengthening Shoulder flex stretch Standing Exercise Name Omari Shoulder flex w/cane Side bilateral Reps/Minutes 3 Hold x 15x Self-Care/Home Management Treatment Education Patient Education Home Exercise Program Activities Self-Care/Home Management Activities Issued & reviewed HEP: Standing quadraped thoracic ext (rocking forward on hand and standing cat/camel motion. PT-OP-R Modalities Start: 04/02/21 17:26 Freq: Status: Active Protocol: Document 06/26/21 09:02 LRN (Rec: 06/30/21 08:32 LRN [id number]) Hot Pack/Cold Pack Treatment Cold Pack Location Neck/upper T/S Patient Position Hooklying Treatment Duration (minutes) 10 Patient Tolerance Good Comments Used with Hot Pack Location Back Patient Position Hooklying Treatment Duration (minutes) 10 Patient Tolerance Good Comments Used with CP PT-OP-T Assessment and Plan Start: 04/02/21 17:26 Freq: Status: Active Protocol: Document 06/26/21 09:02 LRN (Rec: 06/26/21 09:59 LRN [id number]) Physical Therapy Assessment Goals Four Impairment Constant bilateral upper shoulder pain rated 1-6/10. Impairment Initial Neck & shoulder Disability Index is 14/50 = 20 -39% impaired Short Term Goal (STG) Reduce bilateral upper shoulder pain to intermittent in nature. STG Duration 05/03/21 (05/15/21: MET GOAL ) Senior Care Goal (LTG) Decrease pain with movement to no greater than 3/10 to improve sleeping ability ( increase episodes of longer nights sleep. (05/12/21: Upper back pain 3- 4/10) (05/22/21: Neck pain is intermittent at no greater than 5). (06/19/21: Neck pain 4/10) LTG Duration 06/16/21 (: Improving, Neck Pain 3/10, was 4/10) Three Impairment Omari shoulder mobility limiting movement due to pain (1-6/10) Impairment AROM (in deg's) in sitting: L shoulder: flex 153, Ext 60, AB 150, ER (at 0 deg's AB) 37 , IR (behind back) T6. R shoulder: flex 152, Ext 60, AB 155, ER (at 0 deg's AB) 42 , IR (behind back) L3. Initial UE QuickDASH score is 22.5 with 1 question missed ( indicates 20-39% impaired). Short Term Goal (STG) Pt will be independent with a HEP of shoulder PROM & AROM ex 's. STG Duration 05/03/21 (05/22/21: MET GOAL) Senior Care Goal (LTG) Improve active bilateral shoulder mobility (in sitting) for improved function per UE QuickDASH score less than 20 ( Initial Score is 22.5 with one question not answered). (05/22/21: UE QuickDASH score 29.54 = 20-39% impaired). LTG Duration 06/16/21 Two Impairment Constant neck pain rated 1-6/ 10 Impairment Initial Neck & shoulder Disability Index is 14/50 = 20 -39% impaired Short Term Goal (STG) Reduce neck pain for pt perception of being intermittent in nature with pt able to sit in chair for 2 hours for relaxation or movie watching. (05/22/21: Neck pain is intermittent, sitting time 1/2 hour). (06/08/21: Neck pain tolerable to sit through a 2 hour movie ). STG Duration 05/03/21 (06/08/21: MET GOAL ) Application Development Specialist Goal (LTG) Decrease pain with improved function per neck/shoulder disability index score 9 or less. (05/22/21: No significant change with neck/shoulder disabiltiy index, neck pain decreased to greater than 5/10 ) LTG Duration 06/16/21 (05/22/21: No significant change in function , max neck pain 5/10) One Impairment Self care HEP needed Short Term Goal (STG) Review and update pt's current HEP. (04/17/21: Reviewed HEP of neck/shoulder stretches to update current HEP). (05/22/21: Reviewed & updated pt's current HEP of ROM and strengthening of shoulders) STG Duration 04/10/21 (05/22/21: MET GOAL Senior Care Goal (LTG) Pt will be independent in a self care HEP to promote reduction of neck/shoulder pain and improve neck/shoulder mobility. (05/22/21: Completed review of pt's previous HEP of neck/ shoulder ROM and strengthening ex's) (06/26/21: Added to HEP standing quadraped: thoracic ext & cat/camel) LTG Duration 06/16/21 (06/26/21: Progressed shoulder HEP) Progress Towards Goals Progress Comments UB (C7-T2) pain decreased for improved sleep last night. Progressed HEP. Assessment Summary Assessment Pt still having pain in upper back, but less, and appears to be sleeping better. R side of neck has increased tone, mildly decreased after treatment. Improved mobility and posturing/positioning after manual therapy. Cervical mobility appears to be only slightly restricted with R rot & L SB due to R lateral neck tightness. Physical Therapy Plan Frequency and Duration Frequency of Treatment 2x/Week Plan of Care Start Date 05/22/21 Plan of Care End Date 07/08/21 Next Visit Focus/Plan Next Note Type Treatment Note Next Visit Plan Assess UE QUICKDASH & response to last treatment with comfort level of going to MV shopoping after therapy. Monitor adherence to AROM/PROM ex's. Monitor pt's tolerance to sitting & occasionlly assess Apley's for IR/ER reaching before/after treatment to note progress. Assess need for manual therapy for Cervicothoracic junction and thoracic mobility. MH during neck/shoulder ROM ex 's if appropriate and to end Continued posture training head/neck/shoulder.
--- NOTE | 2021-06-30 09:05 | PT-OP ANOTE ---
Pt attended appointment, discussed her recent wisdom teeth surgery and determined pt not appropriate for PT today; therefore PT cancel of pt's appointment today. Pt to check with dental surgeon and determine if she should attend her appt in 3 days or to hold therapy for the week. Pt will cancel her Tuesday appt only if recommended by dental surgeon.
--- NOTE | 2021-07-20 16:45 | PT.OTN ---
Current Diagnoses Other chronic pain (07/20/21) Cervicalgia (07/20/21) Low back pain (07/20/21) Pain in thoracic spine (07/20/21) Muscle weakness (generalized) (07/20/21) Physical Therapy Treatment Note PT-OP-A Visit Information Start: 04/02/21 17:26 Freq: Status: Active Protocol: Document 07/20/21 09:49 LRN (Rec: 07/20/21 10:38 LRN [id number]) Out-Patient Physical Therapy Visit Information Visit Information Visit Type Progress Note Visit Note 1 in 2021 Visit Start Time 09:49 Visit Stop Time 19:39 Total Visit Minutes 50 Visit Number 17 Evaluation Information Evaluation Date 04/03/21 Precautions Precautions Controlled HBP, chronic back and neck pain, chronic sinusitis. PT-OP-B Current Condition Start: 04/02/21 17:26 Freq: Status: Active Protocol: Document 04/03/21 12:47 LRN (Rec: 04/03/21 13:35 LRN [id number]) Current Condition History of Current Condition Onset Date November 2020 Current Complaints Constant R neck pain that worsens with head movement. History of Current Condition Ongoing R Neck/bilateral shoulder pain that has progressively to the point she has pain with any movement of her head. At night, sometimes wakes every hour due to pain and sometimes can sleep 5-6 hours. Slight movements can cause increase in R neck pain. Prior Treatments and Tests Physical Therapy 2 yrs ago. 2019 Cortisone spinal injections in the neck that was not helpful. Treatment Goals Patient/Caregiver Goals Pt goal with therapy is to decrease pain to be able to sit in chair for 2 hours for movie, decrease constant to 0/ 10 and decrease pain with movement to 3/10. Prior Functional Status Baseline Function- ADL's Independent Baseline Function- Mobility Independent Baseline Function- Other Able to sit 2+ hours to watch a movie. Limited to light duty (vacuum, dishes, small grocery bags). Sometimes able to sleep. Current Functional Impairments (Reported) Functional Limitations- ADL's Limited sitting of 1 hour due to neck pain. Limited to light duty (vacuum, dishes, small grocery bags). Sleeping disruption variable. Personal Factors Other Personal Factors That May Effect Chronic R sinusitis causes Therapy/Recovery headaches and eye socket pain. PT-OP-C Subjective Start: 04/02/21 17:26 Freq: Status: Active Protocol: Document 07/20/21 09:49 LRN (Rec: 07/20/21 10:38 LRN [id number]) OP-PT Subjective Patient Comments Patient Comments States same. UBP (below Dowager's hump). Today no headache and suboccipital pain for the past week. Pain in UB 4/10. Patient Questionnaires Neck Disability Index NDI Score 10 Neck Disability Index Impairment 20 to 39% Impaired (Score 10- 19) Quick Dash- Upper Extremity Quick Dash UE Score 11.36 Quick Dash UE Impairment 1 to 19% Impaired (Score 1-19) PT-OP-E Functional Tests Start: 04/02/21 17:26 Freq: Status: Active Protocol: Document 07/20/21 09:49 LRN (Rec: 07/20/21 10:38 LRN [id number]) Functional Tests Apley's Scratch Test Action 1- Left Behind shldr, spine of scapula Action 1- Right Behind shldr, mid Upper Trapezius Action 2- Left T3 Action 2- Right T3 Action 3- Left T7 Action 3- Right T12 PT-OP-H Neuro Start: 04/02/21 17:26 Freq: Status: Active Protocol: Document 04/03/21 12:47 LRN (Rec: 04/03/21 13:35 LRN [id number]) Sensation Evaluation Gross Sensation Gross Sensation WNL Deep Tendon Reflex & Clonus Assessment Deep Tendon Reflex Bilateral Tricep Deep Tendon Reflex 1+ Diminished Bilateral Bicep Deep Tendon Reflex 2+ Normal PT-OP-J Posture/Palpation/Skin Start: 04/02/21 17:26 Freq: Status: Active Protocol: Document 04/03/21 12:47 LRN (Rec: 04/03/21 13:35 LRN [id number]) Posture Evaluation Position Standing Head/C-Spine Posture Forward Head Shoulder Posture (R) Forward,(L) Elevated Comments Posture Comments Dowagers hump, Straighten upper thoracic spine. Palpation Assessment Location Upper thoracic spine Palpation Location T/S Palpation Findings Soft Tissue Tightness,Muscle Guarding Upper shoulders Palpation Location UT's Palpation Findings Soft Tissue Tightness, Tenderness Neck Palpation Location Posterior & R lateral neck Palpation Findings Soft Tissue Tightness, Tenderness PT-OP-K Range of Motion Start: 04/02/21 17:26 Freq: Status: Active Protocol: Document 05/19/21 08:23 LRN (Rec: 05/19/21 09:53 LRN [id number]) Cervical Spine Range of Motion Cervical Spine Active Degrees Rotation Left 60 Rotation Right 60 PT-OP-M Strength Start: 04/02/21 17:26 Freq: Status: Active Protocol: Document 04/03/21 12:47 LRN (Rec: 04/03/21 13:35 LRN [id number]) Cervical Spine Strength Cervical Spine Manual Muscle Testing Flexion (C1-2) 4 Good Extension 5 Normal Shoulder Strength Shoulder Manual Muscle Testing Right Flexion 4 Good Abduction (C5) 4+ Good+ External Rotation 4- Good- Internal Rotation 4 Good Left Flexion 4 Good Abduction (C5) 4+ Good+ External Rotation 4 Good Internal Rotation 5 Normal PT-OP-Q Treatments Start: 04/02/21 17:26 Freq: Status: Active Protocol: Document 07/20/21 09:49 LRN (Rec: 07/20/21 10:38 LRN [id number]) Cardio Equipment Recumbent Elliptical (Pollenizer) Duration (Minutes) 9 Resistance 1 Seat Position 6 Therapeutic Exercises Sitting Exercises Overhead marcella Sitting Exercise Name Shoulder flex Side bilateral Reps/Minutes 4' Neck ROM stretch Sitting Exercise Name Cervical Active rotation & SB stretch Side bilateral Reps/Minutes 12' Comments Pt needed cuing for hold stretch times. Shoulder IR stretch Sitting Exercise Name Reaching behind back stretch Side bilateral Equipment Used Strap Reps/Minutes 4x bilaterally Comments Apley's ROM assessed Shoulder ER stretch Sitting Exercise Name Reaching behind head stretch Side bilateral Reps/Minutes 4x bilaterally Comments Apley's ROM assessed Manual Therapy Treatment Soft Tissue Mobilization T1-T3 Body Location PA of T5, T6 SP and L TP ( min rx needed) Mobilization Type Myofascial Release Intensity/Depth Moderate Body Position Supine Comments Pillows underneath. Anterior pressure in: upper sternum, T2,T3, R TP. PT-OP-R Modalities Start: 04/02/21 17:26 Freq: Status: Active Protocol: Document 07/20/21 09:49 LRN (Rec: 07/20/21 10:38 LRN [id number]) Hot Pack/Cold Pack Treatment Cold Pack Location Neck/upper T/S Patient Position Hooklying Treatment Duration (minutes) 10 Patient Tolerance Good Comments Used with Hot Pack Location Back Patient Position Hooklying Treatment Duration (minutes) 10 Patient Tolerance Good Comments Used with CP PT-OP-T Assessment and Plan Start: 04/02/21 17:26 Freq: Status: Active Protocol: Document 07/20/21 09:49 LRN (Rec: 07/20/21 10:38 LRN [id number]) Physical Therapy Assessment Rehab Potential Rehabilitation Potential Good Evaluation Complexity Number of Personal Factors/Comorbidities 1-2 Number of Body Systems Impaired 4 or More Clinical Presentation at Evaluation Stable Impairments Impairments Pain,Posture,ROM,Soft Tissue Mobility,Strength Goals Four Impairment Constant bilateral upper shoulder pain rated 1-6/10. Impairment Initial Neck & shoulder Disability Index is 14/50 = 20 -39% impaired Short Term Goal (STG) Reduce bilateral upper shoulder pain to intermittent in nature. STG Duration 05/03/21 (05/15/21: MET GOAL ) Jail Goal (LTG) Decrease pain with movement to no greater than 3/10 to improve sleeping ability ( increase episodes of longer nights sleep. (05/12/21: Upper back pain 3- 4/10) (05/22/21: Neck pain is intermittent at no greater than 5). (06/19/21: Neck pain 4/10 (07/20/21: Neck pain 0/10, UB pain 4/10; Neck & Shoulder Disability Index is 11 = 1-19% impaired)) LTG Duration 09/18/21 (07/17/21: Improved: Neck Pain 0/10, UBP 4/10, no change) Three Impairment Omari shoulder mobility limiting movement due to pain (1-6/10) Impairment AROM (in deg's) in sitting: L shoulder: flex 153, Ext 60, AB 150, ER (at 0 deg's AB) 37 , IR (behind back) T6. R shoulder: flex 152, Ext 60, AB 155, ER (at 0 deg's AB) 42 , IR (behind back) L3. Initial UE QuickDASH score is 22.5 with 1 question missed ( indicates 20-39% impaired). Short Term Goal (STG) Pt will be independent with a HEP of shoulder PROM & AROM ex 's. STG Duration 05/03/21 (05/22/21: MET GOAL) Jail Goal (LTG) Improve active bilateral shoulder mobility (in sitting) for improved function per UE QuickDASH score less than 20 ( Initial Score is 22.5 with one question not answered). (05/22/21: UE QuickDASH score 29.54 = 20-39% impaired). (07/20/21: UE QuickDASH score 11 = 1-19% impaired). LTG Duration 06/16/21 (07/20/21: MET GOAL) Two Impairment Constant neck pain rated 1-6/ 10 Impairment Initial Neck & shoulder Disability Index is 14/50 = 20 -39% impaired Short Term Goal (STG) Reduce neck pain for pt perception of being intermittent in nature with pt able to sit in chair for 2 hours for relaxation or movie watching. (05/22/21: Neck pain is intermittent, sitting time 1/2 hour). (06/08/21: Neck pain tolerable to sit through a 2 hour movie ). STG Duration 05/03/21 (06/08/21: MET GOAL ) Switchboard Operator Receptionist Goal (LTG) Decrease pain with improved function per neck/shoulder disability index score 9 or less. (05/22/21: No significant change with neck/shoulder disabiltiy index, neck pain decreased to greater than 5/10 ). (07/20/21: Neck & Shoulder Disability Index is 11 = 1-19% impaired; Neck pain rated 0/ 10) LTG Duration 09/18/21 (07/20/21: Improved: Neck & Shoulder Disability Index is 11) One Impairment Self care HEP needed Short Term Goal (STG) Review and update pt's current HEP. (04/17/21: Reviewed HEP of neck/shoulder stretches to update current HEP). (05/22/21: Reviewed & updated pt's current HEP of ROM and strengthening of shoulders) STG Duration 04/10/21 (05/22/21: MET GOAL Jail Goal (LTG) Pt will be independent in a self care HEP to promote reduction of neck/shoulder pain and improve neck/shoulder mobility. (05/22/21: Completed review of pt's previous HEP of neck/ shoulder ROM and strengthening ex's) (06/26/21: Added to HEP standing quadraped: thoracic ext & cat/camel) LTG Duration 09/18/21 (06/26/21: Progressed shoulder HEP) Progress Towards Goals Progress Comments Improved function: Neck & Shoulder Disability Score is 10 (was 15 on 05/22/21 ), 20-39% impaired (score 10- 19). UE QuickDASH score is 11 (was 22.5 on 04/03/21), 1 to 19% impaired (score 1-19); 20-39% impaired (score 20-39). LTG #3 MET per UE QuickDASH score of 11. Assessment Summary Assessment Pt has been on a self care HEP for the past 2 weeks due to the holidays. She presents today with UE function improved per UE QuickDASH score. Neck & Shoulder Disability Index shows improvment in function as indicated above. No significant improvement with mobility per [facility] functional mobility assessment . Pt's pain has been variable , with greater areas of intensity in varying locations (ie head, neck, dowager's hump, upper back, R shoulder). Today she shows resolution of her neck pain and headaches , but has most of her pain in the upper back, rated 4/10, most notably at lucie level of T5, T6 spinous processes. Pt is feeling better and wanting to possibly seek employment, but she has not consistently engaged in a strengthening program due to difficulty with progressing strengthening due to onset of pain and low pain tolerance. I am encouraging the pt to focus more on home ex's of strengthening and am decreasing her therapy to 1x/ week. Progression onto a self care program may take an extended therapy time, depending upon her symptom onset and tolerance to exercises. I am hopeful to progress her towards independence in 4-6 visits; therefore continued physical therapy for 4-6 visits is recommended to wean the pt onto her self care HEP. Physical Therapy Plan Frequency and Duration Frequency of Treatment 1x/Week Plan of Care Start Date 07/20/21 Plan of Care End Date 09/18/21 Therapeutic Interventions Therapeutic Interventions Home Exercise Program,Joint Mobilizations,Manual Therapy, Neuromuscular Re-education, Patient/Caregiver Education, Self-Care/Home Management,Soft Tissue Mobilization, Therapeutic Exercises Modalities Cold Pack/Ice Massage,Electric Stimulation,Hot Packs, Ultrasound Next Visit Focus/Plan Next Note Type Treatment Note Next Visit Plan Progress the pt onto a self care HEP and monitor adherence to AROM/PROM ex's. Monitor pt's tolerance to sitting & occasionlly assess Apley's for IR/ER. Assess need for manual therapy for Cervicothoracic junction and thoracic mobility. MH during neck/shoulder ROM ex 's if appropriate and to end Stabilzation ex's of head/neck /R >L shoulder.
--- NOTE | 2021-07-27 11:06 | PT.OTN ---
Current Diagnoses Other chronic pain (07/27/21) Cervicalgia (07/27/21) Low back pain (07/27/21) Pain in thoracic spine (07/27/21) Muscle weakness (generalized) (07/27/21) Physical Therapy Treatment Note PT-OP-A Visit Information Start: 04/02/21 17:26 Freq: Status: Active Protocol: Document 07/27/21 09:50 LRN (Rec: 07/27/21 11:04 LRN [id number]) Out-Patient Physical Therapy Visit Information Visit Information Visit Type Treatment Note Visit Note 2 2021 Visit Start Time 09:50 Visit Stop Time 10:35 Total Visit Minutes 55 Visit Number 18 Evaluation Information Evaluation Date 04/03/21 Precautions Precautions Controlled HBP, chronic back and neck pain, chronic sinusitis. PT-OP-B Current Condition Start: 04/02/21 17:26 Freq: Status: Active Protocol: Document 04/03/21 12:47 LRN (Rec: 04/03/21 13:35 LRN [id number]) Current Condition History of Current Condition Onset Date November 2020 Current Complaints Constant R neck pain that worsens with head movement. History of Current Condition Ongoing R Neck/bilateral shoulder pain that has progressively to the point she has pain with any movement of her head. At night, sometimes wakes every hour due to pain and sometimes can sleep 5-6 hours. Slight movements can cause increase in R neck pain. Prior Treatments and Tests Physical Therapy 2 yrs ago. 2019 Cortisone spinal injections in the neck that was not helpful. Treatment Goals Patient/Caregiver Goals Pt goal with therapy is to decrease pain to be able to sit in chair for 2 hours for movie, decrease constant to 0/ 10 and decrease pain with movement to 3/10. Prior Functional Status Baseline Function- ADL's Independent Baseline Function- Mobility Independent Baseline Function- Other Able to sit 2+ hours to watch a movie. Limited to light duty (vacuum, dishes, small grocery bags). Sometimes able to sleep. Current Functional Impairments (Reported) Functional Limitations- ADL's Limited sitting of 1 hour due to neck pain. Limited to light duty (vacuum, dishes, small grocery bags). Sleeping disruption variable. Personal Factors Other Personal Factors That May Effect Chronic R sinusitis causes Therapy/Recovery headaches and eye socket pain. PT-OP-C Subjective Start: 04/02/21 17:26 Freq: Status: Active Protocol: Document 07/27/21 09:50 LRN (Rec: 07/27/21 11:04 LRN [id number]) OP-PT Subjective Patient Comments Patient Comments No headache and suboccipital pain, but is recovering from R sided 3 teeth extractions 5 days ago. Pain in UB 3/10, feeling looser in the upper back. Stress from dryer quiting, and sink is plugged. PT-OP-E Functional Tests Start: 04/02/21 17:26 Freq: Status: Active Protocol: Document 07/20/21 09:49 LRN (Rec: 07/20/21 10:38 LRN [id number]) Functional Tests Apley's Scratch Test Action 1- Left Behind shldr, spine of scapula Action 1- Right Behind shldr, mid Upper Trapezius Action 2- Left T3 Action 2- Right T3 Action 3- Left T7 Action 3- Right T12 PT-OP-H Neuro Start: 04/02/21 17:26 Freq: Status: Active Protocol: Document 04/03/21 12:47 LRN (Rec: 04/03/21 13:35 LRN [id number]) Sensation Evaluation Gross Sensation Gross Sensation WNL Deep Tendon Reflex & Clonus Assessment Deep Tendon Reflex Bilateral Tricep Deep Tendon Reflex 1+ Diminished Bilateral Bicep Deep Tendon Reflex 2+ Normal PT-OP-J Posture/Palpation/Skin Start: 04/02/21 17:26 Freq: Status: Active Protocol: Document 04/03/21 12:47 LRN (Rec: 04/03/21 13:35 LRN [id number]) Posture Evaluation Position Standing Head/C-Spine Posture Forward Head Shoulder Posture (R) Forward,(L) Elevated Comments Posture Comments Dowagers hump, Straighten upper thoracic spine. Palpation Assessment Location Upper thoracic spine Palpation Location T/S Palpation Findings Soft Tissue Tightness,Muscle Guarding Upper shoulders Palpation Location UT's Palpation Findings Soft Tissue Tightness, Tenderness Neck Palpation Location Posterior & R lateral neck Palpation Findings Soft Tissue Tightness, Tenderness PT-OP-K Range of Motion Start: 04/02/21 17:26 Freq: Status: Active Protocol: Document 05/19/21 08:23 LRN (Rec: 05/19/21 09:53 LRN [id number]) Cervical Spine Range of Motion Cervical Spine Active Degrees Rotation Left 60 Rotation Right 60 PT-OP-M Strength Start: 04/02/21 17:26 Freq: Status: Active Protocol: Document 04/03/21 12:47 LRN (Rec: 04/03/21 13:35 LRN [id number]) Cervical Spine Strength Cervical Spine Manual Muscle Testing Flexion (C1-2) 4 Good Extension 5 Normal Shoulder Strength Shoulder Manual Muscle Testing Right Flexion 4 Good Abduction (C5) 4+ Good+ External Rotation 4- Good- Internal Rotation 4 Good Left Flexion 4 Good Abduction (C5) 4+ Good+ External Rotation 4 Good Internal Rotation 5 Normal PT-OP-Q Treatments Start: 04/02/21 17:26 Freq: Status: Active Protocol: Document 07/27/21 09:50 LRN (Rec: 07/27/21 11:04 LRN [id number]) Cardio Equipment Recumbent Elliptical (Clicktree) Duration (Minutes) 8 Resistance 3 Seat Position 6 Therapeutic Exercises Sitting Exercises Neck ROM stretch Sitting Exercise Name Cervical Active rotation & SB stretch Side bilateral Reps/Minutes 12' Comments Pt needed cuing for hold stretch times. Shoulder horiz AD stretch Sitting Exercise Name R>L, Shoulder AD stretch Side bilateral Reps/Minutes 2x each Shoulder IR stretch Sitting Exercise Name Reaching behind back stretch Side left Equipment Used Strap Reps/Minutes 4x bilaterally Comments Apley's ROM assessed Standing Exercises Shoulder IR stretclh Standing Exercise Name IR stretch behind back w/belt Side bilateral Equipment Used Gait belt Reps/Minutes 30' x 4' Shoulder flex stretch Standing Exercise Name Omari Shoulder flex w/cane Side bilateral Reps/Minutes 30 Hold 3x Manual Therapy Treatment Soft Tissue Mobilization T1-T3 Body Location PA of C7, T1 SP and R TP, balancing Mobilization Type Myofascial Release Intensity/Depth Moderate Body Position Supine Comments Pillows underneath. Anterior pressure in: upper sternum & Cervical region on primarily the L side. Balancing 4 pt in back (X2), and front/back. UT/LS Body Location Bilateral UT Mobilization Type Myofascial Release Intensity/Depth Moderate Body Position Hooklying Joint Mobilizations 1st rib Joint Inferior glide, oscillations Direction Inferior Grade III Body Position Hooklying Reps/Duration 4' PT-OP-R Modalities Start: 04/02/21 17:26 Freq: Status: Active Protocol: Document 07/27/21 09:50 LRN (Rec: 07/27/21 11:04 LR [id number]) Hot Pack/Cold Pack Treatment Cold Pack Location Neck/upper T/S Patient Position Hooklying Treatment Duration (minutes) 10 Patient Tolerance Good Comments Used with Hot Pack Location Back Patient Position Hooklying Treatment Duration (minutes) 10 Patient Tolerance Good Comments Used with CP PT-OP-T Assessment and Plan Start: 04/02/21 17:26 Freq: Status: Active Protocol: Document 07/27/21 09:50 LRN (Rec: 07/27/21 11:04 [facility] [id number]) Physical Therapy Assessment Goals Four Impairment Constant bilateral upper shoulder pain rated 1-6/10. Impairment Initial Neck & shoulder Disability Index is 14/50 = 20 -39% impaired Short Term Goal (STG) Reduce bilateral upper shoulder pain to intermittent in nature. STG Duration 05/03/21 (05/15/21: MET GOAL ) Mcc Goal (LTG) Decrease pain with movement to no greater than 3/10 to improve sleeping ability ( increase episodes of longer nights sleep. (05/12/21: Upper back pain 3- 4/10) (05/22/21: Neck pain is intermittent at no greater than 5). (06/19/21: Neck pain 4/10 (07/20/21: Neck pain 0/10, UB pain 4/10; Neck & Shoulder Disability Index is 11 = 1-19% impaired) (07/27/21; UBP rated 3/10 for first time) LTG Duration 09/18/21 (07/27/21: Improved: Neck Pain 0/10, UBP 3/10) Three Impairment Omari shoulder mobility limiting movement due to pain (1-6/10) Impairment AROM (in deg's) in sitting: L shoulder: flex 153, Ext 60, AB 150, ER (at 0 deg's AB) 37 , IR (behind back) T6. R shoulder: flex 152, Ext 60, AB 155, ER (at 0 deg's AB) 42 , IR (behind back) L3. Initial UE QuickDASH score is 22.5 with 1 question missed ( indicates 20-39% impaired). Short Term Goal (STG) Pt will be independent with a HEP of shoulder PROM & AROM ex 's. STG Duration 05/03/21 (05/22/21: MET GOAL) Butcherette Goal (LTG) Improve active bilateral shoulder mobility (in sitting) for improved function per UE QuickDASH score less than 20 ( Initial Score is 22.5 with one question not answered). (05/22/21: UE QuickDASH score 29.54 = 20-39% impaired). (07/20/21: UE QuickDASH score 11 = 1-19% impaired). LTG Duration 06/16/21 (07/20/21: MET GOAL) Two Impairment Constant neck pain rated 1-6/ 10 Impairment Initial Neck & shoulder Disability Index is 14/50 = 20 -39% impaired Short Term Goal (STG) Reduce neck pain for pt perception of being intermittent in nature with pt able to sit in chair for 2 hours for relaxation or movie watching. (05/22/21: Neck pain is intermittent, sitting time 1/2 hour). (06/08/21: Neck pain tolerable to sit through a 2 hour movie ). STG Duration 05/03/21 (06/08/21: MET GOAL ) Butcherette Goal (LTG) Decrease pain with improved function per neck/shoulder disability index score 9 or less. (05/22/21: No significant change with neck/shoulder disabiltiy index, neck pain decreased to greater than 5/10 ). (07/20/21: Neck & Shoulder Disability Index is 11 = 1-19% impaired; Neck pain rated 0/ 10) LTG Duration 09/18/21 (07/20/21: Improved: Neck & Shoulder Disability Index is 11) One Impairment Self care HEP needed Short Term Goal (STG) Review and update pt's current HEP. (04/17/21: Reviewed HEP of neck/shoulder stretches to update current HEP). (05/22/21: Reviewed & updated pt's current HEP of ROM and strengthening of shoulders) STG Duration 04/10/21 (05/22/21: MET GOAL Mcc Goal (LTG) Pt will be independent in a self care HEP to promote reduction of neck/shoulder pain and improve neck/shoulder mobility. (05/22/21: Completed review of pt's previous HEP of neck/ shoulder ROM and strengthening ex's) (06/26/21: Added to HEP standing quadraped: thoracic ext & cat/camel) (07/27/21: Added across body & overhead stretch). LTG Duration 09/18/21 (07/27/21: Progressed shoulder HEP) Progress Towards Goals Progress Towards Goals Goals Met Progress Comments Progressed HEP. UBP decreased from 4/10 to 3/ 10 (initial pain 6-8/10). Assessment Summary Assessment Pt responded well to manual therapy with balancing of the upper back. Positive changes with PA of C7/T1. Pt now able to tolerate overhead and across body stretch to R shoulder. Pt not familiar with home stretch of shoulder flexion on wall. Physical Therapy Plan Frequency and Duration Frequency of Treatment 1x/Week Plan of Care Start Date 07/20/21 Plan of Care End Date 09/18/21 Next Visit Focus/Plan Next Note Type Treatment Note Next Visit Plan 3 more visits to Progress the pt onto a self care HEP. Assess if hours of sleep improved with decreased pain ( LTG #4). Progress Stabilzation ex's of head/neck/R >L shoulder. Manual therapy for Cervicothoracic junction and thoracic mobility. Monitor tolerance to sitting & occasionally assess Apley's for IR/ER. Monitor adherence to AROM/PROM ex's. MH during neck/shoulder ROM ex 's if appropriate and to end.
--- NOTE | 2021-07-27 11:08 | PT.OTN ---
Current Diagnoses Other chronic pain (07/27/21) Cervicalgia (07/27/21) Low back pain (07/27/21) Pain in thoracic spine (07/27/21) Muscle weakness (generalized) (07/27/21) Physical Therapy Treatment Note PT-OP-A Visit Information Start: 04/02/21 17:26 Freq: Status: Active Protocol: Document 07/27/21 09:50 LRN (Rec: 07/27/21 11:04 LRN [id number]) Out-Patient Physical Therapy Visit Information Visit Information Visit Type Treatment Note Visit Note 2 2021 Visit Start Time 09:50 Visit Stop Time 10:35 Total Visit Minutes 55 Visit Number 18 Evaluation Information Evaluation Date 04/03/21 Precautions Precautions Controlled HBP, chronic back and neck pain, chronic sinusitis. PT-OP-B Current Condition Start: 04/02/21 17:26 Freq: Status: Active Protocol: Document 04/03/21 12:47 LRN (Rec: 04/03/21 13:35 LRN [id number]) Current Condition History of Current Condition Onset Date November 2020 Current Complaints Constant R neck pain that worsens with head movement. History of Current Condition Ongoing R Neck/bilateral shoulder pain that has progressively to the point she has pain with any movement of her head. At night, sometimes wakes every hour due to pain and sometimes can sleep 5-6 hours. Slight movements can cause increase in R neck pain. Prior Treatments and Tests Physical Therapy 2 yrs ago. 2019 Cortisone spinal injections in the neck that was not helpful. Treatment Goals Patient/Caregiver Goals Pt goal with therapy is to decrease pain to be able to sit in chair for 2 hours for movie, decrease constant to 0/ 10 and decrease pain with movement to 3/10. Prior Functional Status Baseline Function- ADL's Independent Baseline Function- Mobility Independent Baseline Function- Other Able to sit 2+ hours to watch a movie. Limited to light duty (vacuum, dishes, small grocery bags). Sometimes able to sleep. Current Functional Impairments (Reported) Functional Limitations- ADL's Limited sitting of 1 hour due to neck pain. Limited to light duty (vacuum, dishes, small grocery bags). Sleeping disruption variable. Personal Factors Other Personal Factors That May Effect Chronic R sinusitis causes Therapy/Recovery headaches and eye socket pain. PT-OP-C Subjective Start: 04/02/21 17:26 Freq: Status: Active Protocol: Document 07/27/21 09:50 LRN (Rec: 07/27/21 11:04 LRN [id number]) OP-PT Subjective Patient Comments Patient Comments No headache and suboccipital pain, but is recovering from R sided 3 teeth extractions 5 days ago. Pain in UB 3/10, feeling looser in the upper back. Stress from dryer quiting, and sink is plugged. PT-OP-E Functional Tests Start: 04/02/21 17:26 Freq: Status: Active Protocol: Document 07/20/21 09:49 LRN (Rec: 07/20/21 10:38 LRN [id number]) Functional Tests Apley's Scratch Test Action 1- Left Behind shldr, spine of scapula Action 1- Right Behind shldr, mid Upper Trapezius Action 2- Left T3 Action 2- Right T3 Action 3- Left T7 Action 3- Right T12 PT-OP-H Neuro Start: 04/02/21 17:26 Freq: Status: Active Protocol: Document 04/03/21 12:47 LRN (Rec: 04/03/21 13:35 LRN [id number]) Sensation Evaluation Gross Sensation Gross Sensation WNL Deep Tendon Reflex & Clonus Assessment Deep Tendon Reflex Bilateral Tricep Deep Tendon Reflex 1+ Diminished Bilateral Bicep Deep Tendon Reflex 2+ Normal PT-OP-J Posture/Palpation/Skin Start: 04/02/21 17:26 Freq: Status: Active Protocol: Document 04/03/21 12:47 LRN (Rec: 04/03/21 13:35 LRN [id number]) Posture Evaluation Position Standing Head/C-Spine Posture Forward Head Shoulder Posture (R) Forward,(L) Elevated Comments Posture Comments Dowagers hump, Straighten upper thoracic spine. Palpation Assessment Location Upper thoracic spine Palpation Location T/S Palpation Findings Soft Tissue Tightness,Muscle Guarding Upper shoulders Palpation Location UT's Palpation Findings Soft Tissue Tightness, Tenderness Neck Palpation Location Posterior & R lateral neck Palpation Findings Soft Tissue Tightness, Tenderness PT-OP-K Range of Motion Start: 04/02/21 17:26 Freq: Status: Active Protocol: Document 05/19/21 08:23 LRN (Rec: 05/19/21 09:53 LRN [id number]) Cervical Spine Range of Motion Cervical Spine Active Degrees Rotation Left 60 Rotation Right 60 PT-OP-M Strength Start: 04/02/21 17:26 Freq: Status: Active Protocol: Document 04/03/21 12:47 LRN (Rec: 04/03/21 13:35 LRN [id number]) Cervical Spine Strength Cervical Spine Manual Muscle Testing Flexion (C1-2) 4 Good Extension 5 Normal Shoulder Strength Shoulder Manual Muscle Testing Right Flexion 4 Good Abduction (C5) 4+ Good+ External Rotation 4- Good- Internal Rotation 4 Good Left Flexion 4 Good Abduction (C5) 4+ Good+ External Rotation 4 Good Internal Rotation 5 Normal PT-OP-Q Treatments Start: 04/02/21 17:26 Freq: Status: Active Protocol: Document 07/27/21 09:50 LRN (Rec: 07/27/21 11:04 LRN [id number]) Cardio Equipment Recumbent Elliptical (Indeed) Duration (Minutes) 8 Resistance 3 Seat Position 6 Therapeutic Exercises Sitting Exercises Neck ROM stretch Sitting Exercise Name Cervical Active rotation & SB stretch Side bilateral Reps/Minutes 12' Comments Pt needed cuing for hold stretch times. Shoulder horiz AD stretch Sitting Exercise Name R>L, Shoulder AD stretch Side bilateral Reps/Minutes 2x each Shoulder IR stretch Sitting Exercise Name Reaching behind back stretch Side left Equipment Used Strap Reps/Minutes 4x bilaterally Comments Apley's ROM assessed Standing Exercises Shoulder IR stretclh Standing Exercise Name IR stretch behind back w/belt Side bilateral Equipment Used Gait belt Reps/Minutes 30' x 4' Shoulder flex stretch Standing Exercise Name Omari Shoulder flex w/cane Side bilateral Reps/Minutes 30 Hold 3x Manual Therapy Treatment Soft Tissue Mobilization T1-T3 Body Location PA of C7, T1 SP and R TP, balancing Mobilization Type Myofascial Release Intensity/Depth Moderate Body Position Supine Comments Pillows underneath. Anterior pressure in: upper sternum & Cervical region on primarily the L side. Balancing 4 pt in back (X2), and front/back. UT/LS Body Location Bilateral UT Mobilization Type Myofascial Release Intensity/Depth Moderate Body Position Hooklying Joint Mobilizations 1st rib Joint Inferior glide, oscillations Direction Inferior Grade III Body Position Hooklying Reps/Duration 4' Self-Care/Home Management Treatment Education Patient Education Home Exercise Program Activities Self-Care/Home Management Activities Issued & reviewed HEP: Posterior shoulder & overhead arm stretch. PT-OP-R Modalities Start: 04/02/21 17:26 Freq: Status: Active Protocol: Document 07/27/21 09:50 LRN (Rec: 07/27/21 11:04 LRN [id number]) Hot Pack/Cold Pack Treatment Cold Pack Location Neck/upper T/S Patient Position Hooklying Treatment Duration (minutes) 10 Patient Tolerance Good Comments Used with Hot Pack Location Back Patient Position Hooklying Treatment Duration (minutes) 10 Patient Tolerance Good Comments Used with CP PT-OP-T Assessment and Plan Start: 04/02/21 17:26 Freq: Status: Active Protocol: Document 07/27/21 09:50 LRN (Rec: 07/27/21 11:04 LRN [id number]) Physical Therapy Assessment Goals Four Impairment Constant bilateral upper shoulder pain rated 1-6/10. Impairment Initial Neck & shoulder Disability Index is 14/50 = 20 -39% impaired Short Term Goal (STG) Reduce bilateral upper shoulder pain to intermittent in nature. STG Duration 05/03/21 (05/15/21: MET GOAL ) Skin Care Technician Goal (LTG) Decrease pain with movement to no greater than 3/10 to improve sleeping ability ( increase episodes of longer nights sleep. (05/12/21: Upper back pain 3- 4/10) (05/22/21: Neck pain is intermittent at no greater than 5). (06/19/21: Neck pain 4/10 (07/20/21: Neck pain 0/10, UB pain 4/10; Neck & Shoulder Disability Index is 11 = 1-19% impaired) (07/27/21; UBP rated 3/10 for first time) LTG Duration 09/18/21 (07/27/21: Improved: Neck Pain 0/10, UBP 3/10) Three Impairment Omari shoulder mobility limiting movement due to pain (1-6/10) Impairment AROM (in deg's) in sitting: L shoulder: flex 153, Ext 60, AB 150, ER (at 0 deg's AB) 37 , IR (behind back) T6. R shoulder: flex 152, Ext 60, AB 155, ER (at 0 deg's AB) 42 , IR (behind back) L3. Initial UE QuickDASH score is 22.5 with 1 question missed ( indicates 20-39% impaired). Short Term Goal (STG) Pt will be independent with a HEP of shoulder PROM & AROM ex 's. STG Duration 05/03/21 (05/22/21: MET GOAL) Skin Care Technician Goal (LTG) Improve active bilateral shoulder mobility (in sitting) for improved function per UE QuickDASH score less than 20 ( Initial Score is 22.5 with one question not answered). (05/22/21: UE QuickDASH score 29.54 = 20-39% impaired). (07/20/21: UE QuickDASH score 11 = 1-19% impaired). LTG Duration 06/16/21 (07/20/21: MET GOAL) Two Impairment Constant neck pain rated 1-6/ 10 Impairment Initial Neck & shoulder Disability Index is 14/50 = 20 -39% impaired Short Term Goal (STG) Reduce neck pain for pt perception of being intermittent in nature with pt able to sit in chair for 2 hours for relaxation or movie watching. (05/22/21: Neck pain is intermittent, sitting time 1/2 hour). (06/08/21: Neck pain tolerable to sit through a 2 hour movie ). STG Duration 05/03/21 (06/08/21: MET GOAL ) Halfway Goal (LTG) Decrease pain with improved function per neck/shoulder disability index score 9 or less. (05/22/21: No significant change with neck/shoulder disabiltiy index, neck pain decreased to greater than 5/10 ). (07/20/21: Neck & Shoulder Disability Index is 11 = 1-19% impaired; Neck pain rated 0/ 10) LTG Duration 09/18/21 (07/20/21: Improved: Neck & Shoulder Disability Index is 11) One Impairment Self care HEP needed Short Term Goal (STG) Review and update pt's current HEP. (04/17/21: Reviewed HEP of neck/shoulder stretches to update current HEP). (05/22/21: Reviewed & updated pt's current HEP of ROM and strengthening of shoulders) STG Duration 04/10/21 (05/22/21: MET GOAL Skin Care Technician Goal (LTG) Pt will be independent in a self care HEP to promote reduction of neck/shoulder pain and improve neck/shoulder mobility. (05/22/21: Completed review of pt's previous HEP of neck/ shoulder ROM and strengthening ex's) (06/26/21: Added to HEP standing quadraped: thoracic ext & cat/camel) (07/27/21: Added across body & overhead stretch). LTG Duration 09/18/21 (07/27/21: Progressed shoulder HEP) Progress Towards Goals Progress Towards Goals Goals Met Progress Comments Progressed HEP. UBP decreased from 4/10 to 3/ 10 (initial pain 6-8/10). Assessment Summary Assessment Pt responded well to manual therapy with balancing of the upper back. Positive changes with PA of C7/T1. Pt now able to tolerate overhead and across body stretch to R shoulder. Pt not familiar with home stretch of shoulder flexion on wall. Physical Therapy Plan Frequency and Duration Frequency of Treatment 1x/Week Plan of Care Start Date 07/20/21 Plan of Care End Date 09/18/21 Next Visit Focus/Plan Next Note Type Treatment Note Next Visit Plan 3 more visits to Progress the pt onto a self care HEP. Assess if hours of sleep improved with decreased pain ( LTG #4). Progress Stabilzation ex's of head/neck/R >L shoulder. Manual therapy for Cervicothoracic junction and thoracic mobility. Monitor tolerance to sitting & occasionally assess Apley's for IR/ER. Monitor adherence to AROM/PROM ex's. MH during neck/shoulder ROM ex 's if appropriate and to end.
--- NOTE | 2021-08-03 16:23 | PT.OTN ---
Current Diagnoses Other chronic pain (08/03/21) Cervicalgia (08/03/21) Low back pain (08/03/21) Pain in thoracic spine (08/03/21) Muscle weakness (generalized) (08/03/21) Physical Therapy Treatment Note PT-OP-A Visit Information Start: 04/02/21 17:26 Freq: Status: Active Protocol: Document 08/03/21 09:51 LRN (Rec: 08/03/21 10:39 LRN [id number]) Out-Patient Physical Therapy Visit Information Visit Information Visit Type Treatment Note Visit Start Time 09:51 Visit Stop Time 10:36 Total Visit Minutes 55 Visit Number 19 Evaluation Information Evaluation Date 04/03/21 Precautions Precautions Controlled HBP, chronic back and neck pain, chronic sinusitis. PT-OP-B Current Condition Start: 04/02/21 17:26 Freq: Status: Active Protocol: Document 04/03/21 12:47 LRN (Rec: 04/03/21 13:35 LRN [id number]) Current Condition History of Current Condition Onset Date November 2020 Current Complaints Constant R neck pain that worsens with head movement. History of Current Condition Ongoing R Neck/bilateral shoulder pain that has progressively to the point she has pain with any movement of her head. At night, sometimes wakes every hour due to pain and sometimes can sleep 5-6 hours. Slight movements can cause increase in R neck pain. Prior Treatments and Tests Physical Therapy 2 yrs ago. 2019 Cortisone spinal injections in the neck that was not helpful. Treatment Goals Patient/Caregiver Goals Pt goal with therapy is to decrease pain to be able to sit in chair for 2 hours for movie, decrease constant to 0/ 10 and decrease pain with movement to 3/10. Prior Functional Status Baseline Function- ADL's Independent Baseline Function- Mobility Independent Baseline Function- Other Able to sit 2+ hours to watch a movie. Limited to light duty (vacuum, dishes, small grocery bags). Sometimes able to sleep. Current Functional Impairments (Reported) Functional Limitations- ADL's Limited sitting of 1 hour due to neck pain. Limited to light duty (vacuum, dishes, small grocery bags). Sleeping disruption variable. Personal Factors Other Personal Factors That May Effect Chronic R sinusitis causes Therapy/Recovery headaches and eye socket pain. PT-OP-C Subjective Start: 04/02/21 17:26 Freq: Status: Active Protocol: Document 08/03/21 09:51 LRN (Rec: 08/03/21 10:39 LRN [id number]) OP-PT Subjective Patient Comments Patient Comments States her upper back pain is 3/10. Having L jaw/teeth pain after chewing on something hard. PT-OP-E Functional Tests Start: 04/02/21 17:26 Freq: Status: Active Protocol: Document 07/20/21 09:49 LRN (Rec: 07/20/21 10:38 LRN [id number]) Functional Tests Apley's Scratch Test Action 1- Left Behind shldr, spine of scapula Action 1- Right Behind shldr, mid Upper Trapezius Action 2- Left T3 Action 2- Right T3 Action 3- Left T7 Action 3- Right T12 PT-OP-H Neuro Start: 04/02/21 17:26 Freq: Status: Active Protocol: Document 04/03/21 12:47 LRN (Rec: 04/03/21 13:35 LRN [id number]) Sensation Evaluation Gross Sensation Gross Sensation WNL Deep Tendon Reflex & Clonus Assessment Deep Tendon Reflex Bilateral Tricep Deep Tendon Reflex 1+ Diminished Bilateral Bicep Deep Tendon Reflex 2+ Normal PT-OP-J Posture/Palpation/Skin Start: 04/02/21 17:26 Freq: Status: Active Protocol: Document 04/03/21 12:47 LRN (Rec: 04/03/21 13:35 LRN [id number]) Posture Evaluation Position Standing Head/C-Spine Posture Forward Head Shoulder Posture (R) Forward,(L) Elevated Comments Posture Comments Dowagers hump, Straighten upper thoracic spine. Palpation Assessment Location Upper thoracic spine Palpation Location T/S Palpation Findings Soft Tissue Tightness,Muscle Guarding Upper shoulders Palpation Location UT's Palpation Findings Soft Tissue Tightness, Tenderness Neck Palpation Location Posterior & R lateral neck Palpation Findings Soft Tissue Tightness, Tenderness PT-OP-K Range of Motion Start: 04/02/21 17:26 Freq: Status: Active Protocol: Document 05/19/21 08:23 LRN (Rec: 05/19/21 09:53 LRN [id number]) Cervical Spine Range of Motion Cervical Spine Active Degrees Rotation Left 60 Rotation Right 60 PT-OP-M Strength Start: 04/02/21 17:26 Freq: Status: Active Protocol: Document 04/03/21 12:47 LRN (Rec: 04/03/21 13:35 LRN [id number]) Cervical Spine Strength Cervical Spine Manual Muscle Testing Flexion (C1-2) 4 Good Extension 5 Normal Shoulder Strength Shoulder Manual Muscle Testing Right Flexion 4 Good Abduction (C5) 4+ Good+ External Rotation 4- Good- Internal Rotation 4 Good Left Flexion 4 Good Abduction (C5) 4+ Good+ External Rotation 4 Good Internal Rotation 5 Normal PT-OP-Q Treatments Start: 04/02/21 17:26 Freq: Status: Active Protocol: Document 08/03/21 09:51 LRN (Rec: 08/03/21 10:39 LRN [id number]) Cardio Equipment Recumbent Stepper (Sci-Fit) Duration (Minutes) 8 Resistance 3 Seat Position 7 Therapeutic Exercises Standing Exercises Row Standing Exercise Name Row Side bilateral Reps/Minutes 15 x 2 Comments Phys & v cuing for scap retract/depression Shoulder flex stretch Standing Exercise Name Omari Shoulder flex: arms slide up wall Side bilateral Reps/Minutes 30 Hold 3x Manual Therapy Treatment Soft Tissue Mobilization T1-T3 Body Location PA of C7, T1 SP and R TP, balancing Mobilization Type Myofascial Release Intensity/Depth Moderate Body Position Supine Comments Pillows underneath. Anterior pressure in: upper sternum & Cervical region on primarily the L side. Balancing 4 pt in back (X2), and front/back. UT/LS Body Location Left UT Mobilization Type Myofascial Release Intensity/Depth Moderate Body Position Hooklying Joint Mobilizations 1st rib Joint Inferior glide, oscillations Direction Inferior Grade III Body Position Hooklying Reps/Duration 4' PT-OP-R Modalities Start: 04/02/21 17:26 Freq: Status: Active Protocol: Document 08/03/21 09:51 LRN (Rec: 08/03/21 10:39 LRN [id number]) Hot Pack/Cold Pack Treatment Cold Pack Location Neck/upper T/S Patient Position Hooklying Treatment Duration (minutes) 10 Patient Tolerance Good Comments Used with MH Hot Pack Location Back Patient Position Hooklying Treatment Duration (minutes) 10 Patient Tolerance Good Comments Used with CP PT-OP-T Assessment and Plan Start: 04/02/21 17:26 Freq: Status: Active Protocol: Document 08/03/21 09:51 LRN (Rec: 08/03/21 10:39 LRN [id number]) Physical Therapy Assessment Goals Four Impairment Constant bilateral upper shoulder pain rated 1-6/10. Impairment Initial Neck & shoulder Disability Index is 14/50 = 20 -39% impaired Short Term Goal (STG) Reduce bilateral upper shoulder pain to intermittent in nature. STG Duration 05/03/21 (05/15/21: MET GOAL ) Metaphysicist Goal (LTG) Decrease pain with movement to no greater than 3/10 to improve sleeping ability ( increase episodes of longer nights sleep. (05/12/21: Upper back pain 3- 4/10) (05/22/21: Neck pain is intermittent at no greater than 5). (06/19/21: Neck pain 4/10 (07/20/21: Neck pain 0/10, UB pain 4/10; Neck & Shoulder Disability Index is 11 = 1-19% impaired) (07/27/21; UBP rated 3/10 for first time) LTG Duration 09/18/21 (07/27/21: Improved: Neck Pain 0/10, UBP 3/10) Two Impairment Constant neck pain rated 1-6/ 10 Impairment Initial Neck & shoulder Disability Index is 14/50 = 20 -39% impaired Short Term Goal (STG) Reduce neck pain for pt perception of being intermittent in nature with pt able to sit in chair for 2 hours for relaxation or movie watching. (05/22/21: Neck pain is intermittent, sitting time 1/2 hour). (06/08/21: Neck pain tolerable to sit through a 2 hour movie ). STG Duration 05/03/21 (06/08/21: MET GOAL ) Metaphysicist Goal (LTG) Decrease pain with improved function per neck/shoulder disability index score 9 or less. (05/22/21: No significant change with neck/shoulder disabiltiy index, neck pain decreased to greater than 5/10 ). (07/20/21: Neck & Shoulder Disability Index is 11 = 1-19% impaired; Neck pain rated 0/ 10) LTG Duration 09/18/21 (07/20/21: Improved: Neck & Shoulder Disability Index is 11) One Impairment Self care HEP needed Short Term Goal (STG) Review and update pt's current HEP. (04/17/21: Reviewed HEP of neck/shoulder stretches to update current HEP). (05/22/21: Reviewed & updated pt's current HEP of ROM and strengthening of shoulders) STG Duration 04/10/21 (05/22/21: MET GOAL Half-Way Goal (LTG) Pt will be independent in a self care HEP to promote reduction of neck/shoulder pain and improve neck/shoulder mobility. (05/22/21: Completed review of pt's previous HEP of neck/ shoulder ROM and strengthening ex's) (06/26/21: Added to HEP standing quadraped: thoracic ext & cat/camel) (07/27/21: Added across body & overhead stretch). LTG Duration 09/18/21 (07/27/21: Progressed shoulder HEP) Assessment Summary Assessment Pt having increased tension in the L side of the neck, due to ongoing dental involvement from her tooth extraction. Her UB pain is stable at 3/10 with the L jaw being more uncomfortable. Pt somewhat upset over change in treatment routine, also causing her stress and distracting her from focus on exercise. Pt did appear to have good tolerance to exercise with manual therapy to start. Physical Therapy Plan Frequency and Duration Frequency of Treatment 1x/Week Plan of Care Start Date 07/20/21 Plan of Care End Date 09/18/21 Next Visit Focus/Plan Next Note Type Treatment Note Next Visit Plan Assess if hours of sleep improved with decreased pain ( LTG #4). 2 more visits to Progress the pt onto a self care HEP of stabilzation ex's of head/neck /R >L shoulder. Assess tolerance to sitting & Apley's for IR/ER. Manual therapy for Cervicothoracic junction and thoracic mobility. Monitor adherence to AROM/PROM ex's. MH during neck/shoulder ROM ex 's if appropriate and to end.
--- NOTE | 2021-08-17 11:25 | PT-OP ANOTE ---
Pt has canceled her remaining 2 appointments due to covid concerns with illness in family. Pt has no further appointments. Her plan of care expires 09/18/21; therefore will hold chart open for the next few weeks. Attempted to contact pt by phone, but her mailbox was not set up; therefore unable to leave a message to have pt call back to reschedule. If pt does not call back before the end of August she will be discharged from therapy due to lack of attendance.
--- NOTE | 2021-08-20 16:07 | PT.OTN ---
Current Diagnoses Other chronic pain (08/20/21) Cervicalgia (08/20/21) Low back pain (08/20/21) Pain in thoracic spine (08/20/21) Muscle weakness (generalized) (08/20/21) Physical Therapy Treatment Note PT-OP-A Visit Information Start: 04/02/21 17:26 Freq: Status: Active Protocol: Document 08/20/21 09:08 LRN (Rec: 08/20/21 09:41 LRN [id number]) Out-Patient Physical Therapy Visit Information Visit Information Visit Type Treatment Note Visit Start Time 09:08 Visit Stop Time 09:48 Total Visit Minutes 48 Visit Number 20 Evaluation Information Evaluation Date 04/03/21 Precautions Precautions Controlled HBP, chronic back and neck pain, chronic sinusitis. PT-OP-B Current Condition Start: 04/02/21 17:26 Freq: Status: Active Protocol: Document 04/03/21 12:47 LRN (Rec: 04/03/21 13:35 LRN [id number]) Current Condition History of Current Condition Onset Date November 2020 Current Complaints Constant R neck pain that worsens with head movement. History of Current Condition Ongoing R Neck/bilateral shoulder pain that has progressively to the point she has pain with any movement of her head. At night, sometimes wakes every hour due to pain and sometimes can sleep 5-6 hours. Slight movements can cause increase in R neck pain. Prior Treatments and Tests Physical Therapy 2 yrs ago. 2019 Cortisone spinal injections in the neck that was not helpful. Treatment Goals Patient/Caregiver Goals Pt goal with therapy is to decrease pain to be able to sit in chair for 2 hours for movie, decrease constant to 0/ 10 and decrease pain with movement to 3/10. Prior Functional Status Baseline Function- ADL's Independent Baseline Function- Mobility Independent Baseline Function- Other Able to sit 2+ hours to watch a movie. Limited to light duty (vacuum, dishes, small grocery bags). Sometimes able to sleep. Current Functional Impairments (Reported) Functional Limitations- ADL's Limited sitting of 1 hour due to neck pain. Limited to light duty (vacuum, dishes, small grocery bags). Sleeping disruption variable. Personal Factors Other Personal Factors That May Effect Chronic R sinusitis causes Therapy/Recovery headaches and eye socket pain. PT-OP-C Subjective Start: 04/02/21 17:26 Freq: Status: Active Protocol: Document 08/20/21 09:08 LRN (Rec: 08/20/21 09:41 LRN [id number]) OP-PT Subjective Patient Comments Patient Comments States she was sick but didn't think it was COVID but stayed home anyway. threw herself out with all the coughing she was doing. Slept 5-6 hrs for a night before being sick. Currently pain is 2-3/10 at R neck/shoulder. L jaw healing well and implants expected in a few months ( October-November). PT-OP-E Functional Tests Start: 04/02/21 17:26 Freq: Status: Active Protocol: Document 08/20/21 09:08 LRN (Rec: 08/20/21 09:41 LRN [id number]) Functional Tests Apley's Scratch Test Action 2- Left T3 Action 2- Right T3 Action 3- Left T8 Action 3- Right T10 PT-OP-H Neuro Start: 04/02/21 17:26 Freq: Status: Active Protocol: Document 04/03/21 12:47 LRN (Rec: 04/03/21 13:35 LRN [id number]) Sensation Evaluation Gross Sensation Gross Sensation WNL Deep Tendon Reflex & Clonus Assessment Deep Tendon Reflex Bilateral Tricep Deep Tendon Reflex 1+ Diminished Bilateral Bicep Deep Tendon Reflex 2+ Normal PT-OP-J Posture/Palpation/Skin Start: 04/02/21 17:26 Freq: Status: Active Protocol: Document 04/03/21 12:47 LRN (Rec: 04/03/21 13:35 LRN [id number]) Posture Evaluation Position Standing Head/C-Spine Posture Forward Head Shoulder Posture (R) Forward,(L) Elevated Comments Posture Comments Dowagers hump, Straighten upper thoracic spine. Palpation Assessment Location Upper thoracic spine Palpation Location T/S Palpation Findings Soft Tissue Tightness,Muscle Guarding Upper shoulders Palpation Location UT's Palpation Findings Soft Tissue Tightness, Tenderness Neck Palpation Location Posterior & R lateral neck Palpation Findings Soft Tissue Tightness, Tenderness PT-OP-K Range of Motion Start: 04/02/21 17:26 Freq: Status: Active Protocol: Document 05/19/21 08:23 LRN (Rec: 05/19/21 09:53 LRN [id number]) Cervical Spine Range of Motion Cervical Spine Active Degrees Rotation Left 60 Rotation Right 60 PT-OP-M Strength Start: 04/02/21 17:26 Freq: Status: Active Protocol: Document 04/03/21 12:47 LRN (Rec: 04/03/21 13:35 LRN [id number]) Cervical Spine Strength Cervical Spine Manual Muscle Testing Flexion (C1-2) 4 Good Extension 5 Normal Shoulder Strength Shoulder Manual Muscle Testing Right Flexion 4 Good Abduction (C5) 4+ Good+ External Rotation 4- Good- Internal Rotation 4 Good Left Flexion 4 Good Abduction (C5) 4+ Good+ External Rotation 4 Good Internal Rotation 5 Normal PT-OP-Q Treatments Start: 04/02/21 17:26 Freq: Status: Active Protocol: Document 08/20/21 09:08 LRN (Rec: 08/20/21 09:41 LRN [id number]) Cardio Equipment Recumbent Elliptical ([place]) Duration (Minutes) 8 Resistance 3 Seat Position 7 Other MH to the back Therapeutic Exercises Supine Exercises Shouulder ER/IR Supine Exercise Name Shoulder ER stretch Side right Standing Exercises Shoulder IR stretclh Standing Exercise Name IR stretch behind back w/belt Side bilateral Equipment Used Gait belt Reps/Minutes 30' x 4' Shoulder flex stretch Standing Exercise Name Omari Shoulder flex: arms slide up wall Side bilateral Reps/Minutes 30 Hold 3x Manual Therapy Treatment Soft Tissue Mobilization T1-T3 Body Location PA of C7, T1 SP and R TP, balancing Mobilization Type Myofascial Release Intensity/Depth Moderate Body Position Supine Comments Pillows underneath. Anterior pressure in: upper sternum & Cervical region on primarily the L side. Balancing 4 pt in back (X2), and front/back. UT/LS Body Location R UT Mobilization Type Sustained Pressure Intensity/Depth Moderate Body Position Hooklying PT-OP-R Modalities Start: 04/02/21 17:26 Freq: Status: Active Protocol: Document 08/20/21 09:08 LRN (Rec: 08/20/21 09:41 LRN [id number]) Hot Pack/Cold Pack Treatment Cold Pack Location Neck Patient Position Hooklying Treatment Duration (minutes) 10 Patient Tolerance Good Comments Used with MH Hot Pack Location Back/R lateral trunk Patient Position Hooklying Treatment Duration (minutes) 10 Patient Tolerance Good Comments Used with CP PT-OP-T Assessment and Plan Start: 04/02/21 17:26 Freq: Status: Active Protocol: Document 08/20/21 09:08 LRN (Rec: 08/20/21 09:41 LRN [id number]) Physical Therapy Assessment Goals Four Impairment Constant bilateral upper shoulder pain rated 1-6/10. Impairment Initial Neck & shoulder Disability Index is 14/50 = 20 -39% impaired Short Term Goal (STG) Reduce bilateral upper shoulder pain to intermittent in nature. STG Duration 05/03/21 (05/15/21: MET GOAL ) Caustics Loader Goal (LTG) Decrease pain with movement to no greater than 3/10 to improve sleeping ability ( increase episodes of longer nights sleep. (05/12/21: Upper back pain 3- 4/10) (05/22/21: Neck pain is intermittent at no greater than 5). (06/19/21: Neck pain 4/10 (07/20/21: Neck pain 0/10, UB pain 4/10; Neck & Shoulder Disability Index is 11 = 1-19% impaired) (07/27/21; UBP rated 3/10 for first time) (08/20/21: R neck/shoulder pain was 3/10 yesterday, today 2/ 10, has been sleeping more 5-6 hrs the past few days). LTG Duration 09/18/21 (08/20/21: MET GOAL Neck Pain 0/10, UBP 2-3/10, sleeping 5-6 hrs) Three Impairment Omari shoulder mobility limiting movement due to pain (1-6/10) Impairment AROM (in deg's) in sitting: L shoulder: flex 153, Ext 60, AB 150, ER (at 0 deg's AB) 37 , IR (behind back) T6. R shoulder: flex 152, Ext 60, AB 155, ER (at 0 deg's AB) 42 , IR (behind back) L3. Initial UE QuickDASH score is 22.5 with 1 question missed ( indicates 20-39% impaired). Short Term Goal (STG) Pt will be independent with a HEP of shoulder PROM & AROM ex 's. STG Duration 05/03/21 (05/22/21: MET GOAL) Caustics Loader Goal (LTG) Improve active bilateral shoulder mobility (in sitting) for improved function per UE QuickDASH score less than 20 ( Initial Score is 22.5 with one question not answered). (05/22/21: UE QuickDASH score 29.54 = 20-39% impaired). (07/20/21: UE QuickDASH score 11 = 1-19% impaired). LTG Duration 06/16/21 (07/20/21: MET GOAL) Two Impairment Constant neck pain rated 1-6/ 10 Impairment Initial Neck & shoulder Disability Index is 14/50 = 20 -39% impaired Short Term Goal (STG) Reduce neck pain for pt perception of being intermittent in nature with pt able to sit in chair for 2 hours for relaxation or movie watching. (05/22/21: Neck pain is intermittent, sitting time 1/2 hour). (06/08/21: Neck pain tolerable to sit through a 2 hour movie ). STG Duration 05/03/21 (06/08/21: MET GOAL ) Caustics Loader Goal (LTG) Decrease pain with improved function per neck/shoulder disability index score 9 or less. (05/22/21: No significant change with neck/shoulder disabiltiy index, neck pain decreased to greater than 5/10 ). (07/20/21: Neck & Shoulder Disability Index is 11 = 1-19% impaired; Neck pain rated 0/ 10) LTG Duration 09/18/21 (07/20/21: Improved: Neck & Shoulder Disability Index is 11) One Impairment Self care HEP needed Short Term Goal (STG) Review and update pt's current HEP. (04/17/21: Reviewed HEP of neck/shoulder stretches to update current HEP). (05/22/21: Reviewed & updated pt's current HEP of ROM and strengthening of shoulders) STG Duration 04/10/21 (05/22/21: MET GOAL Detention Goal (LTG) Pt will be independent in a self care HEP to promote reduction of neck/shoulder pain and improve neck/shoulder mobility. (05/22/21: Completed review of pt's previous HEP of neck/ shoulder ROM and strengthening ex's) (06/26/21: Added to HEP standing quadraped: thoracic ext & cat/camel) (07/27/21: Added across body & overhead stretch). LTG Duration 09/18/21 (07/27/21: Progressed shoulder HEP) Assessment Summary Assessment R Shoulder ER is normal, reaching behind head is T3 bilaterally. R shoulder IR reach behind back improved to T10 (was T12) and L shoulder is T8 (was T7). Pt reports improved sleeping ability for a night and decrease in R neck /shoulder pain to 2-3/10. Pt apprehensive about being discharged from PT; therefore will wean pt onto HEP in 1-2 visits. Physical Therapy Plan Frequency and Duration Frequency of Treatment 1x/Week Plan of Care Start Date 07/20/21 Plan of Care End Date 09/18/21 Next Visit Focus/Plan Next Note Type Treatment Note Next Visit Plan Pt to complete UE QuickDASH. Assess if hours of sleep & pain. 1-[address] pt on self care HEP of stabilzation ex's of head/neck/R >L shoulder. Assess tolerance to sitting & Apley's for IR/ER. Manual therapy for Cervicothoracic junction and thoracic mobility. MH during neck/shoulder ROM ex 's if appropriate and to end therapy.
--- NOTE | 2021-08-27 10:02 | PT-OP ANOTE ---
Per phone, pt states she was told her appt time today was 1:45p. She is unable to come at time of notification of missed appointment. Recommended the pt call back to scheduling to discuss with mill order scheduler that made her appt time and phone number to front office representative was given. Notified pt of next appt on 09/04/21 at 1:45p.
--- NOTE | 2021-08-27 11:38 | PT.OTN ---
Current Diagnoses Other chronic pain (08/27/21) Cervicalgia (08/27/21) Low back pain (08/27/21) Pain in thoracic spine (08/27/21) Muscle weakness (generalized) (08/27/21) Physical Therapy Treatment Note PT-OP-A Visit Information Start: 04/02/21 17:26 Freq: Status: Active Protocol: Document 08/27/21 10:34 LRN (Rec: 08/27/21 11:37 LRN [id number]) Out-Patient Physical Therapy Visit Information Visit Information Visit Type Treatment Note Visit Note 7th note after PN Visit Start Time 10:34 Visit Stop Time 11:25 Total Visit Minutes 51 Visit Number 21 Evaluation Information Evaluation Date 04/03/21 Precautions Precautions Controlled HBP, chronic back and neck pain, chronic sinusitis. PT-OP-B Current Condition Start: 04/02/21 17:26 Freq: Status: Active Protocol: Document 04/03/21 12:47 LRN (Rec: 04/03/21 13:35 LRN [id number]) Current Condition History of Current Condition Onset Date November 2020 Current Complaints Constant R neck pain that worsens with head movement. History of Current Condition Ongoing R Neck/bilateral shoulder pain that has progressively to the point she has pain with any movement of her head. At night, sometimes wakes every hour due to pain and sometimes can sleep 5-6 hours. Slight movements can cause increase in R neck pain. Prior Treatments and Tests Physical Therapy 2 yrs ago. 2019 Cortisone spinal injections in the neck that was not helpful. Treatment Goals Patient/Caregiver Goals Pt goal with therapy is to decrease pain to be able to sit in chair for 2 hours for movie, decrease constant to 0/ 10 and decrease pain with movement to 3/10. Prior Functional Status Baseline Function- ADL's Independent Baseline Function- Mobility Independent Baseline Function- Other Able to sit 2+ hours to watch a movie. Limited to light duty (vacuum, dishes, small grocery bags). Sometimes able to sleep. Current Functional Impairments (Reported) Functional Limitations- ADL's Limited sitting of 1 hour due to neck pain. Limited to light duty (vacuum, dishes, small grocery bags). Sleeping disruption variable. Personal Factors Other Personal Factors That May Effect Chronic R sinusitis causes Therapy/Recovery headaches and eye socket pain. PT-OP-C Subjective Start: 04/02/21 17:26 Freq: Status: Active Protocol: Document 08/27/21 10:34 LRN (Rec: 08/27/21 11:37 LRN [id number]) OP-PT Subjective Patient Comments Patient Comments Upper back has been bothering her. She doesn't know why. She shows she is moving her neck at rest. Patient Questionnaires Quick Dash- Upper Extremity Quick Dash UE Score 20.45 Quick Dash UE Impairment 20 to 39% Impaired (Score 20- 39) PT-OP-E Functional Tests Start: 04/02/21 17:26 Freq: Status: Active Protocol: Document 08/27/21 10:34 LRN (Rec: 08/27/21 11:37 LRN [id number]) Functional Tests Apley's Scratch Test Action 2- Left T3 Action 2- Right Interspinous space between T2- T3 Action 3- Left T7 Action 3- Right T12 PT-OP-H Neuro Start: 04/02/21 17:26 Freq: Status: Active Protocol: Document 04/03/21 12:47 LRN (Rec: 04/03/21 13:35 LRN [id number]) Sensation Evaluation Gross Sensation Gross Sensation WNL Deep Tendon Reflex & Clonus Assessment Deep Tendon Reflex Bilateral Tricep Deep Tendon Reflex 1+ Diminished Bilateral Bicep Deep Tendon Reflex 2+ Normal PT-OP-J Posture/Palpation/Skin Start: 04/02/21 17:26 Freq: Status: Active Protocol: Document 04/03/21 12:47 LRN (Rec: 04/03/21 13:35 LRN [id number]) Posture Evaluation Position Standing Head/C-Spine Posture Forward Head Shoulder Posture (R) Forward,(L) Elevated Comments Posture Comments Dowagers hump, Straighten upper thoracic spine. Palpation Assessment Location Upper thoracic spine Palpation Location T/S Palpation Findings Soft Tissue Tightness,Muscle Guarding Upper shoulders Palpation Location UT's Palpation Findings Soft Tissue Tightness, Tenderness Neck Palpation Location Posterior & R lateral neck Palpation Findings Soft Tissue Tightness, Tenderness PT-OP-K Range of Motion Start: 04/02/21 17:26 Freq: Status: Active Protocol: Document 05/19/21 08:23 LRN (Rec: 05/19/21 09:53 LRN [id number]) Cervical Spine Range of Motion Cervical Spine Active Degrees Rotation Left 60 Rotation Right 60 PT-OP-M Strength Start: 04/02/21 17:26 Freq: Status: Active Protocol: Document 04/03/21 12:47 LRN (Rec: 04/03/21 13:35 LRN [id number]) Cervical Spine Strength Cervical Spine Manual Muscle Testing Flexion (C1-2) 4 Good Extension 5 Normal Shoulder Strength Shoulder Manual Muscle Testing Right Flexion 4 Good Abduction (C5) 4+ Good+ External Rotation 4- Good- Internal Rotation 4 Good Left Flexion 4 Good Abduction (C5) 4+ Good+ External Rotation 4 Good Internal Rotation 5 Normal PT-OP-Q Treatments Start: 04/02/21 17:26 Freq: Status: Active Protocol: Document 08/27/21 10:34 LRN (Rec: 08/27/21 11:37 LRN [id number]) Cardio Equipment Recumbent Elliptical ([employer]) Duration (Minutes) 8 Resistance 3 Seat Position 7 Other MH to the back Therapeutic Exercises Sitting Exercises Overhead marcella Sitting Exercise Name Shoulder flex stretch Side bilateral Reps/Minutes 6' Neck Elongation Sitting Exercise Name Neck Elongation review Reps/Minutes 2' for 10 holds, throughout the treatment Neck ROM stretch Sitting Exercise Name Cervical Active rotation & SB stretch Side bilateral Reps/Minutes 12' Comments Pt needed cuing for hold stretch times. Shoulder IR stretch Sitting Exercise Name Reaching behind back stretch Side left Equipment Used Strap Reps/Minutes 4x bilaterally Comments Apley's ROM assessed Shoulder ER stretch Sitting Exercise Name Reaching behind head stretch Side bilateral Reps/Minutes 4x bilaterally Comments Apley's ROM assessed Manual Therapy Treatment Soft Tissue Mobilization T1-T3 Body Location PA of C7, T1 SP and R TP, balancing Mobilization Type Myofascial Release Intensity/Depth Moderate Body Position Supine Comments Pillows underneath. Anterior pressure in: upper sternum & Cervical region on primarily the R side. PT-OP-R Modalities Start: 04/02/21 17:26 Freq: Status: Active Protocol: Document 08/20/21 09:08 LRN (Rec: 08/20/21 09:41 LRN [id number]) Hot Pack/Cold Pack Treatment Cold Pack Location Neck Patient Position Hooklying Treatment Duration (minutes) 10 Patient Tolerance Good Comments Used with Hot Pack Location Back/R lateral trunk Patient Position Hooklying Treatment Duration (minutes) 10 Patient Tolerance Good Comments Used with CP PT-OP-T Assessment and Plan Start: 04/02/21 17:26 Freq: Status: Active Protocol: Document 08/27/21 10:34 LRN (Rec: 08/27/21 11:37 LRN [id number]) Physical Therapy Assessment Goals Four Impairment Constant bilateral upper shoulder pain rated 1-6/10. Impairment Initial Neck & shoulder Disability Index is 14/50 = 20 -39% impaired Short Term Goal (STG) Reduce bilateral upper shoulder pain to intermittent in nature. STG Duration 05/03/21 (05/15/21: MET GOAL ) Jail Goal (LTG) Decrease pain with movement to no greater than 3/10 to improve sleeping ability ( increase episodes of longer nights sleep. (05/12/21: Upper back pain 3- 4/10) (05/22/21: Neck pain is intermittent at no greater than 5). (06/19/21: Neck pain 4/10 (07/20/21: Neck pain 0/10, UB pain 4/10; Neck & Shoulder Disability Index is 11 = 1-19% impaired) (07/27/21; UBP rated 3/10 for first time) (08/20/21: R neck/shoulder pain was 3/10 yesterday, today 2/ 10, has been sleeping more 5-6 hrs the past few days). LTG Duration 09/18/21 (08/20/21: MET GOAL Neck Pain 0/10, UBP 2-3/10, sleeping 5-6 hrs) Three Impairment Omari shoulder mobility limiting movement due to pain (1-6/10) Impairment AROM (in deg's) in sitting: L shoulder: flex 153, Ext 60, AB 150, ER (at 0 deg's AB) 37 , IR (behind back) T6. R shoulder: flex 152, Ext 60, AB 155, ER (at 0 deg's AB) 42 , IR (behind back) L3. Initial UE QuickDASH score is 22.5 with 1 question missed ( indicates 20-39% impaired). Short Term Goal (STG) Pt will be independent with a HEP of shoulder PROM & AROM ex 's. STG Duration 05/03/21 (05/22/21: MET GOAL) Jail Goal (LTG) Improve active bilateral shoulder mobility (in sitting) for improved function per UE QuickDASH score less than 20 ( Initial Score is 22.5 with one question not answered). (05/22/21: UE QuickDASH score 29.54 = 20-39% impaired). (07/20/21: UE QuickDASH score 11 = 1-19% impaired). LTG Duration 06/16/21 (07/20/21: MET GOAL) Two Impairment Constant neck pain rated 1-6/ 10 Impairment Initial Neck & shoulder Disability Index is 14/50 = 20 -39% impaired Short Term Goal (STG) Reduce neck pain for pt perception of being intermittent in nature with pt able to sit in chair for 2 hours for relaxation or movie watching. (05/22/21: Neck pain is intermittent, sitting time 1/2 hour). (06/08/21: Neck pain tolerable to sit through a 2 hour movie ). STG Duration 05/03/21 (06/08/21: MET GOAL ) Jail Goal (LTG) Decrease pain with improved function per neck/shoulder disability index score 9 or less. (05/22/21: No significant change with neck/shoulder disabiltiy index, neck pain decreased to greater than 5/10 ). (07/20/21: Neck & Shoulder Disability Index is 11 = 1-19% impaired; Neck pain rated 0/ 10) LTG Duration 09/18/21 (07/20/21: Improved: Neck & Shoulder Disability Index is 11) One Impairment Self care HEP needed Short Term Goal (STG) Review and update pt's current HEP. (04/17/21: Reviewed HEP of neck/shoulder stretches to update current HEP). (05/22/21: Reviewed & updated pt's current HEP of ROM and strengthening of shoulders) STG Duration 04/10/21 (05/22/21: MET GOAL Laboratory Tester Goal (LTG) Pt will be independent in a self care HEP to promote reduction of neck/shoulder pain and improve neck/shoulder mobility. (05/22/21: Completed review of pt's previous HEP of neck/ shoulder ROM and strengthening ex's) (06/26/21: Added to HEP standing quadraped: thoracic ext & cat/camel) (07/27/21: Added across body & overhead stretch). LTG Duration 09/18/21 (07/27/21: Progressed shoulder HEP) Progress Towards Goals Progress Comments UE Quickdash 20.45 (20-39% impaired, score 20-39). Previous UE Quickdash 11.36 on 08/22/21. Assessment Summary Assessment Pt in flare up, UE Quickdash is 20.45 (was 11.36) and reaching behind back with R arm to T12 (was T10) and behind head is T2-T3 interspinous space (was T3); therefore function is less today. L UT is tight, appears to have decreased L rot of head, R shoulder IR is tight at shoulder and Physical Therapy Plan Frequency and Duration Frequency of Treatment 1x/Week Plan of Care Start Date 07/20/21 Plan of Care End Date 09/18/21 Next Visit Focus/Plan Next Note Type Treatment Note Next Visit Plan Pt to complete neck/shoulder disability index if not in flare up. Assess hours of sleep & pain. 1-[address] pt on self care HEP of stabilzation ex's of head/neck/R >L shoulder after flare up. Assess tolerance to sitting. Manual therapy for Cervicothoracic junction and thoracic mobility. MH during neck/shoulder ROM ex 's if appropriate and to end therapy.
--- NOTE | 2021-09-04 15:29 | PT.OTN ---
Current Diagnoses Other chronic pain (09/04/21) Cervicalgia (09/04/21) Low back pain (09/04/21) Pain in thoracic spine (09/04/21) Muscle weakness (generalized) (09/04/21) Physical Therapy Treatment Note PT-OP-A Visit Information Start: 04/02/21 17:26 Freq: Status: Active Protocol: Document 09/04/21 13:45 LRN (Rec: 09/04/21 15:23 LRN [id number]) Out-Patient Physical Therapy Visit Information Visit Information Visit Type Treatment Note Visit Note 8th note after PN Visit Start Time 13:46 Visit Stop Time 14:30 Total Visit Minutes 44 Visit Number 22 Evaluation Information Evaluation Date 04/03/21 Precautions Precautions Controlled HBP, chronic back and neck pain, chronic sinusitis. PT-OP-B Current Condition Start: 04/02/21 17:26 Freq: Status: Active Protocol: Document 04/03/21 12:47 LRN (Rec: 04/03/21 13:35 LRN [id number]) Current Condition History of Current Condition Onset Date November 2020 Current Complaints Constant R neck pain that worsens with head movement. History of Current Condition Ongoing R Neck/bilateral shoulder pain that has progressively to the point she has pain with any movement of her head. At night, sometimes wakes every hour due to pain and sometimes can sleep 5-6 hours. Slight movements can cause increase in R neck pain. Prior Treatments and Tests Physical Therapy 2 yrs ago. 2019 Cortisone spinal injections in the neck that was not helpful. Treatment Goals Patient/Caregiver Goals Pt goal with therapy is to decrease pain to be able to sit in chair for 2 hours for movie, decrease constant to 0/ 10 and decrease pain with movement to 3/10. Prior Functional Status Baseline Function- ADL's Independent Baseline Function- Mobility Independent Baseline Function- Other Able to sit 2+ hours to watch a movie. Limited to light duty (vacuum, dishes, small grocery bags). Sometimes able to sleep. Current Functional Impairments (Reported) Functional Limitations- ADL's Limited sitting of 1 hour due to neck pain. Limited to light duty (vacuum, dishes, small grocery bags). Sleeping disruption variable. Personal Factors Other Personal Factors That May Effect Chronic R sinusitis causes Therapy/Recovery headaches and eye socket pain. PT-OP-C Subjective Start: 04/02/21 17:26 Freq: Status: Active Protocol: Document 09/04/21 13:45 LRN (Rec: 09/04/21 15:23 LRN [id number]) OP-PT Subjective Patient Comments Patient Comments Pt states she slept good last night, 6 hrs solid. Upper back is the same, after the last session no significant change. Today is not too bad. Sensitive in the back of the neck (~C7-T1). PT-OP-E Functional Tests Start: 04/02/21 17:26 Freq: Status: Active Protocol: Document 09/04/21 13:45 LRN (Rec: 09/04/21 15:23 LRN [id number]) Functional Tests Apley's Scratch Test Action 1- Left Spine of scapula Action 1- Right Spine of scapula Action 2- Left T2 Action 2- Right T2 Action 3- Left T 6 Action 3- Right T10 PT-OP-H Neuro Start: 04/02/21 17:26 Freq: Status: Active Protocol: Document 04/03/21 12:47 LRN (Rec: 04/03/21 13:35 LRN [id number]) Sensation Evaluation Gross Sensation Gross Sensation WNL Deep Tendon Reflex & Clonus Assessment Deep Tendon Reflex Bilateral Tricep Deep Tendon Reflex 1+ Diminished Bilateral Bicep Deep Tendon Reflex 2+ Normal PT-OP-J Posture/Palpation/Skin Start: 04/02/21 17:26 Freq: Status: Active Protocol: Document 04/03/21 12:47 LRN (Rec: 04/03/21 13:35 LRN [id number]) Posture Evaluation Position Standing Head/C-Spine Posture Forward Head Shoulder Posture (R) Forward,(L) Elevated Comments Posture Comments Dowagers hump, Straighten upper thoracic spine. Palpation Assessment Location Upper thoracic spine Palpation Location T/S Palpation Findings Soft Tissue Tightness,Muscle Guarding Upper shoulders Palpation Location UT's Palpation Findings Soft Tissue Tightness, Tenderness Neck Palpation Location Posterior & R lateral neck Palpation Findings Soft Tissue Tightness, Tenderness PT-OP-K Range of Motion Start: 04/02/21 17:26 Freq: Status: Active Protocol: Document 05/19/21 08:23 LRN (Rec: 05/19/21 09:53 LRN [id number]) Cervical Spine Range of Motion Cervical Spine Active Degrees Rotation Left 60 Rotation Right 60 PT-OP-M Strength Start: 04/02/21 17:26 Freq: Status: Active Protocol: Document 04/03/21 12:47 LRN (Rec: 04/03/21 13:35 LRN [id number]) Cervical Spine Strength Cervical Spine Manual Muscle Testing Flexion (C1-2) 4 Good Extension 5 Normal Shoulder Strength Shoulder Manual Muscle Testing Right Flexion 4 Good Abduction (C5) 4+ Good+ External Rotation 4- Good- Internal Rotation 4 Good Left Flexion 4 Good Abduction (C5) 4+ Good+ External Rotation 4 Good Internal Rotation 5 Normal PT-OP-Q Treatments Start: 04/02/21 17:26 Freq: Status: Active Protocol: Document 09/04/21 13:45 LRN (Rec: 09/04/21 15:23 LRN [id number]) Cardio Equipment Recumbent Elliptical (Kinetic Social) Duration (Minutes) 8 Resistance 3 Seat Position 7 Other MH to the back Therapeutic Exercises Sitting Exercises Shoulder horiz AD stretch Sitting Exercise Name Shoulder horiz AD stretch Side bilateral Comments Reaching to spine of scapula Shoulder IR stretch Sitting Exercise Name R>L, Reaching behind back stretch, f/b active stretch Side bilateral Equipment Used Strap Reps/Minutes 60 stretch f/b active stretch x 2 Comments Apley's ROM assessed Shoulder ER stretch Sitting Exercise Name Reaching behind head stretch Side bilateral Reps/Minutes 4x bilaterally Comments Apley's ROM assessed Standing Exercises Shoulder Depression Standing Exercise Name Shoulder depression/retraction awareness training Equipment Used With & w/o Mirror Reps/Minutes 12' Comments Much extra time with v cuing and some physical cuing Pec Stretch Standing Exercise Name Pec stretch per Scapular pinches Side bilateral Manual Therapy Treatment Soft Tissue Mobilization T1-T3 Body Location PA of C7, T1 SP and R TP, balancing Mobilization Type Myofascial Release Intensity/Depth Moderate Body Position Prone Comments Pillows underneath. Anterior pressure in: upper sternum & Cervical region on primarily the R side. PT-OP-R Modalities Start: 04/02/21 17:26 Freq: Status: Active Protocol: Document 09/04/21 13:45 LRN (Rec: 09/04/21 15:23 LRN [id number]) Ultrasound Therapy Treatment Omari C7-T4 Paraspinals Treatment Duration (minutes) 8 Patient Position Prone Coupling Medium Ultrasound Gel Applicator Size (cm2) 10 Frequency Setting (mHz) 1 Mode Setting Pulsed Duty Cycle 50% Intensity Setting (w/cm2) 1.5 PT-OP-T Assessment and Plan Start: 04/02/21 17:26 Freq: Status: Active Protocol: Document 09/04/21 13:45 LRN (Rec: 09/04/21 15:23 LRN [id number]) Physical Therapy Assessment Goals Four Impairment Constant bilateral upper shoulder pain rated 1-6/10. Impairment Initial Neck & shoulder Disability Index is 14/50 = 20 -39% impaired Short Term Goal (STG) Reduce bilateral upper shoulder pain to intermittent in nature. STG Duration 05/03/21 (05/15/21: MET GOAL ) [employer] Specialist Goal (LTG) Decrease pain with movement to no greater than 3/10 to improve sleeping ability ( increase episodes of longer nights sleep. (05/12/21: Upper back pain 3- 4/10) (05/22/21: Neck pain is intermittent at no greater than 5). (06/19/21: Neck pain 4/10 (07/20/21: Neck pain 0/10, UB pain 4/10; Neck & Shoulder Disability Index is 11 = 1-19% impaired) (07/27/21; UBP rated 3/10 for first time) (08/20/21: R neck/shoulder pain was 3/10 yesterday, today 2/ 10, has been sleeping more 5-6 hrs the past few days). LTG Duration 09/18/21 (08/20/21: MET GOAL Neck Pain 0/10, UBP 2-3/10, sleeping 5-6 hrs) Three Impairment Omari shoulder mobility limiting movement due to pain (1-6/10) Impairment AROM (in deg's) in sitting: L shoulder: flex 153, Ext 60, AB 150, ER (at 0 deg's AB) 37 , IR (behind back) T6. R shoulder: flex 152, Ext 60, AB 155, ER (at 0 deg's AB) 42 , IR (behind back) L3. Initial UE QuickDASH score is 22.5 with 1 question missed ( indicates 20-39% impaired). Short Term Goal (STG) Pt will be independent with a HEP of shoulder PROM & AROM ex 's. STG Duration 05/03/21 (05/22/21: MET GOAL) Custodial Goal (LTG) Improve active bilateral shoulder mobility (in sitting) for improved function per UE QuickDASH score less than 20 ( Initial Score is 22.5 with one question not answered). (05/22/21: UE QuickDASH score 29.54 = 20-39% impaired). (07/20/21: UE QuickDASH score 11 = 1-19% impaired). LTG Duration 06/16/21 (07/20/21: MET GOAL) Two Impairment Constant neck pain rated 1-6/ 10 Impairment Initial Neck & shoulder Disability Index is 14/50 = 20 -39% impaired Short Term Goal (STG) Reduce neck pain for pt perception of being intermittent in nature with pt able to sit in chair for 2 hours for relaxation or movie watching. (05/22/21: Neck pain is intermittent, sitting time 1/2 hour). (06/08/21: Neck pain tolerable to sit through a 2 hour movie ). STG Duration 05/03/21 (06/08/21: MET GOAL ) [employer] Specialist Goal (LTG) Decrease pain with improved function per neck/shoulder disability index score 9 or less. (05/22/21: No significant change with neck/shoulder disabiltiy index, neck pain decreased to greater than 5/10 ). (07/20/21: Neck & Shoulder Disability Index is 11 = 1-19% impaired; Neck pain rated 0/ 10) LTG Duration 09/18/21 (07/20/21: Improved: Neck & Shoulder Disability Index is 11) One Impairment Self care HEP needed Short Term Goal (STG) Review and update pt's current HEP. (04/17/21: Reviewed HEP of neck/shoulder stretches to update current HEP). (05/22/21: Reviewed & updated pt's current HEP of ROM and strengthening of shoulders) STG Duration 04/10/21 (05/22/21: MET GOAL) [employer] Specialist Goal (LTG) Pt will be independent in a self care HEP to promote reduction of neck/shoulder pain and improve neck/shoulder mobility. (05/22/21: Completed review of pt's previous HEP of neck/ shoulder ROM and strengthening ex's) (06/26/21: Added to HEP standing quadraped: thoracic ext & cat/camel) (07/27/21: Added across body & overhead stretch). LTG Duration 09/18/21 (07/27/21: Progressed shoulder HEP) Assessment Summary Assessment Pt appears to be sleeping better intermittently. Sleeping 6 hrs last night. Pt hesistant to say she is improving, even with improved sleep. She was not able to complete neck/shoulder disability index today due to not having reading glasses. Pt open to seeking possibly treatment for Accupuncture or dry needling for her neck pain . Physical Therapy Plan Frequency and Duration Frequency of Treatment 1x/Week Plan of Care Start Date 07/20/21 Plan of Care End Date 09/18/21 Next Visit Focus/Plan Next Note Type Treatment Note Next Visit Plan Pt to complete neck/shoulder disability index if not in flare up. Assess response to US. ?1-[address] pt on self care HEP of stab ex's of head/neck/R >L shoulder after flare up. Assess tolerance to sitting. Manual therapy for Cervicothoracic junction and thoracic mobility. MH during neck/shoulder ROM ex 's if appropriate and to end therapy.
--- NOTE | 2021-10-20 16:31 | PT.OPDS ---
Current Diagnoses Other chronic pain (09/04/21) Cervicalgia (09/04/21) Other low back pain (09/04/21) Pain in thoracic spine (09/04/21) Muscle weakness (generalized) (09/04/21) Visit Care Team Role Provider Type Omar Mcguire DO Attending Provider Physician Primary Care Provider Referring Provider Specialty: [facility] Address: [address] [place] [address] Email: Visit Number Visit Number 22 Discharge Summary PT-OP-B Current Condition Start: 04/02/21 17:26 Freq: Status: Active Protocol: Document 04/03/21 12:47 LRN (Rec: 04/03/21 13:35 LRN [id number]) Current Condition History of Current Condition Onset Date November 2020 Current Complaints Constant R neck pain that worsens with head movement. History of Current Condition Ongoing R Neck/bilateral shoulder pain that has progressively to the point she has pain with any movement of her head. At night, sometimes wakes every hour due to pain and sometimes can sleep 5-6 hours. Slight movements can cause increase in R neck pain. Prior Treatments and Tests Physical Therapy 2 yrs ago. 2019 Cortisone spinal injections in the neck that was not helpful. Treatment Goals Patient/Caregiver Goals Pt goal with therapy is to decrease pain to be able to sit in chair for 2 hours for movie, decrease constant to 0/ 10 and decrease pain with movement to 3/10. Prior Functional Status Baseline Function- ADL's Independent Baseline Function- Mobility Independent Baseline Function- Other Able to sit 2+ hours to watch a movie. Limited to light duty (vacuum, dishes, small grocery bags). Sometimes able to sleep. Current Functional Impairments (Reported) Functional Limitations- ADL's Limited sitting of 1 hour due to neck pain. Limited to light duty (vacuum, dishes, small grocery bags). Sleeping disruption variable. Personal Factors Other Personal Factors That May Effect Chronic R sinusitis causes Therapy/Recovery headaches and eye socket pain. PT-OP-C Subjective Start: 04/02/21 17:26 Freq: Status: Active Protocol: Document 10/20/21 16:23 LRN (Rec: 10/20/21 16:31 LRN [id number]) OP-PT Subjective Patient Comments Patient Comments Per phone conversation the pt states she continues to have R neck pain and needs to contact Dr Omar Mcguire for a new orthopedic referral since Dr. Zamudio has now moved to a new clinic. Pt agreeable to discharge at this time, but feels she might be referred back. She understands she will need a new referral to return to therapy. PT-OP-E Functional Tests Start: 04/02/21 17:26 Freq: Status: Active Protocol: Document 09/04/21 13:45 LRN (Rec: 09/04/21 15:23 LRN [id number]) Functional Tests Apley's Scratch Test Action 1- Left Spine of scapula Action 1- Right Spine of scapula Action 2- Left T2 Action 2- Right T2 Action 3- Left T 6 Action 3- Right T10 PT-OP-H Neuro Start: 04/02/21 17:26 Freq: Status: Active Protocol: Document 04/03/21 12:47 LRN (Rec: 04/03/21 13:35 LRN [id number]) Sensation Evaluation Gross Sensation Gross Sensation WNL Deep Tendon Reflex & Clonus Assessment Deep Tendon Reflex Bilateral Tricep Deep Tendon Reflex 1+ Diminished Bilateral Bicep Deep Tendon Reflex 2+ Normal PT-OP-J Posture/Palpation/Skin Start: 04/02/21 17:26 Freq: Status: Active Protocol: Document 04/03/21 12:47 LRN (Rec: 04/03/21 13:35 LRN [id number]) Posture Evaluation Position Standing Head/C-Spine Posture Forward Head Shoulder Posture (R) Forward,(L) Elevated Comments Posture Comments Dowagers hump, Straighten upper thoracic spine. Palpation Assessment Location Upper thoracic spine Palpation Location T/S Palpation Findings Soft Tissue Tightness,Muscle Guarding Upper shoulders Palpation Location UT's Palpation Findings Soft Tissue Tightness, Tenderness Neck Palpation Location Posterior & R lateral neck Palpation Findings Soft Tissue Tightness, Tenderness PT-OP-K Range of Motion Start: 04/02/21 17:26 Freq: Status: Active Protocol: Document 05/19/21 08:23 LRN (Rec: 05/19/21 09:53 LRN [id number]) Cervical Spine Range of Motion Cervical Spine Active Degrees Rotation Left 60 Rotation Right 60 PT-OP-M Strength Start: 04/02/21 17:26 Freq: Status: Active Protocol: Document 04/03/21 12:47 LRN (Rec: 04/03/21 13:35 LRN [id number]) Cervical Spine Strength Cervical Spine Manual Muscle Testing Flexion (C1-2) 4 Good Extension 5 Normal Shoulder Strength Shoulder Manual Muscle Testing Right Flexion 4 Good Abduction (C5) 4+ Good+ External Rotation 4- Good- Internal Rotation 4 Good Left Flexion 4 Good Abduction (C5) 4+ Good+ External Rotation 4 Good Internal Rotation 5 Normal PT-OP-T Assessment and Plan Start: 04/02/21 17:26 Freq: Status: Active Protocol: Document 10/20/21 16:23 LRN (Rec: 10/20/21 16:31 LRN [id number]) Physical Therapy Assessment Goals Four Impairment Constant bilateral upper shoulder pain rated 1-6/10. Impairment Initial Neck & shoulder Disability Index is 14/50 = 20 -39% impaired Short Term Goal (STG) Reduce bilateral upper shoulder pain to intermittent in nature. STG Duration 05/03/21 (05/15/21: MET GOAL ) Alf Goal (LTG) Decrease pain with movement to no greater than 3/10 to improve sleeping ability ( increase episodes of longer nights sleep. (05/12/21: Upper back pain 3- 4/10) (05/22/21: Neck pain is intermittent at no greater than 5). (06/19/21: Neck pain 4/10 (07/20/21: Neck pain 0/10, UB pain 4/10; Neck & Shoulder Disability Index is 11 = 1-19% impaired) (07/27/21; UBP rated 3/10 for first time) (08/20/21: R neck/shoulder pain was 3/10 yesterday, today 2/ 10, has been sleeping more 5-6 hrs the past few days). LTG Duration 09/18/21 (08/20/21: MET GOAL Neck Pain 0/10, UBP 2-3/10, sleeping 5-6 hrs) Three Impairment Omari shoulder mobility limiting movement due to pain (1-6/10) Impairment AROM (in deg's) in sitting: L shoulder: flex 153, Ext 60, AB 150, ER (at 0 deg's AB) 37 , IR (behind back) T6. R shoulder: flex 152, Ext 60, AB 155, ER (at 0 deg's AB) 42 , IR (behind back) L3. Initial UE QuickDASH score is 22.5 with 1 question missed ( indicates 20-39% impaired). Short Term Goal (STG) Pt will be independent with a HEP of shoulder PROM & AROM ex 's. STG Duration 05/03/21 (05/22/21: MET GOAL) Alf Goal (LTG) Improve active bilateral shoulder mobility (in sitting) for improved function per UE QuickDASH score less than 20 ( Initial Score is 22.5 with one question not answered). (05/22/21: UE QuickDASH score 29.54 = 20-39% impaired). (07/20/21: UE QuickDASH score 11 = 1-19% impaired). LTG Duration 06/16/21 (07/20/21: MET GOAL) Two Impairment Constant neck pain rated 1-6/ 10 Impairment Initial Neck & shoulder Disability Index is 14/50 = 20 -39% impaired Short Term Goal (STG) Reduce neck pain for pt perception of being intermittent in nature with pt able to sit in chair for 2 hours for relaxation or movie watching. (05/22/21: Neck pain is intermittent, sitting time 1/2 hour). (06/08/21: Neck pain tolerable to sit through a 2 hour movie ). STG Duration 05/03/21 (06/08/21: MET GOAL ) Alf Goal (LTG) Decrease pain with improved function per neck/shoulder disability index score 9 or less. (05/22/21: No significant change with neck/shoulder disability index, neck pain decreased to greater than 5/10 ). (07/20/21: Neck & Shoulder Disability Index is 11 = 1-19% impaired; Neck pain rated 0/ 10) LTG Duration 09/18/21 (07/20/21: Improved: Neck & Shoulder Disability Index is 11) One Impairment Self care HEP needed Short Term Goal (STG) Review and update pt's current HEP. (04/17/21: Reviewed HEP of neck/shoulder stretches to update current HEP). (05/22/21: Reviewed & updated pt's current HEP of ROM and strengthening of shoulders) STG Duration 04/10/21 (05/22/21: MET GOAL) Alf Goal (LTG) Pt will be independent in a self care HEP to promote reduction of neck/shoulder pain and improve neck/shoulder mobility. (05/22/21: Completed review of pt's previous HEP of neck/ shoulder ROM and strengthening ex's) (06/26/21: Added to HEP standing quadraped: thoracic ext & cat/camel) (07/27/21: Added across body & overhead stretch). LTG Duration 09/18/21 (07/27/21: Progressed shoulder HEP) Assessment Summary Assessment Pt was last seen 09/04/21, and on that day she had reported sleeping better, intermittently. Sleeping 6 hrs last night. Pt was hesitant to say she was improving, even with improved sleep. She did not complete the neck/shoulder disability index due to reportedly not having reading glasses. Pt may benefit from treatment of Accupuncture or dry needling for her neck pain. The pt is being discharged from therapy due to lack of attendance and plans for other consults for her R neck pain. Physical Therapy Plan Discharge Physical Therapy Discharge Reasons No Longer Attending PT Discharge Comments Pt was last seen 09/04/21 and her plan of care has . The pt has plans to see an orthopedic surgeon but will need a new referral since the doctor she was planning to see has moved to a new clinic. The pt continues to have R neck pain and may need PT in the future if surgery is not offered. Thank you for your referral.
== END 2021-10-21 14:11 ==
LOC: PHYS 13:45
PROVIDERS: PCP Family Medicine; Referring Provider Family Medicine; Visit Provider Family Medicine
DX: M54.6 Pain in thoracic spine (principal); G89.29 Other chronic pain; M54.2 Cervicalgia; M62.81 Muscle weakness (generalized); M54.59 Other low back pain
CPT/HCPCS: 97014; 97110; 97140; 97161; 97535; G0283

== ENCOUNTER → 2021-09-15 10:07 | Outpatient (CLI) | payer MEDICARE, SELFPAY ==
--- NOTE | 2021-09-17 12:52 | DIAB.FU ---
Diabetes Education Class Series: Diabetes and Nutrition Name: Cornelia Reilly Date: 09/15/21 Time: 10a-5935p Dx: Type II Diabetes Cornelia arrived to class a little late. She participated in class. States they have made a lot of heart healthy nutrition changes since her boyfriend had heart sx. Endorses cont drinking juice and soda on occasion. Class topics covered: ? Debunk nutrition myths and discuss how to sustain healthy eating long-term through moderation and variety ? Define macronutrients and determine their impact on blood sugars ? Discuss macronutrient pairing, Plate Method, and carb counting ? Review general recommendations for carbohydrates ? Practice label reading ? Discuss the role of fiber in diabetes and provide examples of sources ? Review heart health nutrition: fats, fiber, and sodium ? Determine recommendations for grocery shopping and eating out ? Discuss alcohol recommendations ? Review the role of substitute sugars in diabetes management ? Set SMART goals Goal Set: Increase vegetable intake at dinner to 5 nights per week. Follow-up: Diabetes Physiology and Medication Class in one week Liz Robbins RDN, [facility] Registered Dietitian, Certified Diabetes Care and Vegetable Preparer [phone] [email or web address]
== END ==
PROVIDERS: PCP Family Medicine; Referring Provider Family Medicine; Visit Provider Family Medicine
DX: E11.9 Type 2 diabetes mellitus without complications (principal)
CPT/HCPCS: G0109

== ENCOUNTER → 2021-09-22 09:34 | Outpatient (CLI) | payer MEDICARE, SELFPAY ==
--- NOTE | 2021-09-24 15:27 | DIAB.FU ---
Diabetes Education Class Series: Diabetes Physiology and Medications Name: Cornelia Reilly Date: 09/22/21 Time: 930-12:30 Cornelia reports cutting out soda since the nutrition class last visit. She had questions today regarding the difference between T1 and T2 DM, which we discussed. Class topics covered: ? Diabetes pathophysiology ? Discuss different types of diabetes ? Review criteria for diagnosing diabetes ? Review HgA1c measurement and associated blood sugars ? Review blood sugar monitoring safety, technique, and goals ? Discuss ways to reduce complications associated with diabetes, includes microvascular and macrovascular complications ? Review diabetes medications types, action, and side effects ? Health care visits recommended for people with T2DM ? Immunization recommended for people with T2DM ? SMART goals review Follow-up: Diabetes Lifestyle and Ongoing Support Class next week Liz Robbins RDN, [facility] Registered Dietitian, Certified Diabetes Care and Deputy Clerk Of Court [phone] [email or web address]
== END ==
PROVIDERS: PCP Family Medicine; Referring Provider Family Medicine; Visit Provider Family Medicine
DX: E11.9 Type 2 diabetes mellitus without complications (principal)
CPT/HCPCS: G0109

== ENCOUNTER → 2021-09-25 13:25 | Outpatient (CLI) | payer MEDICARE, SELFPAY ==
[2021-09-25 14:30] LABS: Hemoglobin A1C% w Est Avg Glu 6.1 % (4.0-6.0)
== END ==
PROVIDERS: PCP Family Medicine; Referring Provider Family Medicine; Visit Provider Family Medicine
DX: E11.9 Type 2 diabetes mellitus without complications (principal)
CPT/HCPCS: 36415; 83036

== ENCOUNTER → 2021-10-16 06:59 | Outpatient (CLI) | payer MEDICARE, SELFPAY ==
--- NOTE | 2021-10-16 07:02 | DI.MRI.S_ITS ---
PROCEDURE: MR CERVICAL SPINE WO CON INDICATIONS: pain TECHNIQUE: Noncontrast sagittal T1 spin echo and T2 fast spin echo, sagittal STIR, foraminal oblique sagittal T2 fast spin echo, and axial gradient echo or T2 fast spin echo through the cervical spine. COMPARISON: [facility], MR, MR CERVICAL SPINE WO CON, 11/01/2019, 11:09. FINDINGS: Image quality: Excellent. Alignment and Curvature: There is straightening normal cervical curvature. There is 1-2 mm anterolisthesis of C4 on C5, 1-2 mm retrolisthesis of C6 on C7. Bone Marrow: Marrow demonstrates normal overall signal. Spinal Cord: Visualized spinal cord has normal size and signal. No cerebellar tonsillar herniation. Paraspinous Soft Tissues: No paravertebral masses. Prevertebral soft tissues are normal in thickness. Discs: Moderate to severe disc desiccation is present at C6-7. C2-C3: No disc bulge, spinal stenosis or foraminal narrowing. No interval change. C3-C4: Mild disc bulge with minimal spinal stenosis, unchanged in appearance. [id number] left and mild right foraminal narrowing with uncovertebral hypertrophy. No interval change. C4-C5: Mild disc bulge with mild spinal stenosis and flattening of the ventral cord, unchanged. Mild right and moderate left foraminal narrowing with uncovertebral hypertrophy. There is mild flattened deformity of the exiting left C5 nerve root. No interval change. C5-C6: Mild disc bulge with moderate spinal stenosis and indentation of the anterior ventral cord. Moderate bilateral foraminal narrowing with uncovertebral hypertrophy. There is mild flattening of the exiting bilateral C6 nerve roots. No interval change. C6-C7: Mild disc bulge with superimposed posterior central/right paracentral protrusion. Moderate to severe spinal stenosis. There is moderate to severe bilateral foraminal narrowing, left greater than right with flattening deformity of the exiting C7 nerve roots bilaterally. No interval change. C7-T1: No disc bulge, spinal stenosis or foraminal narrowing. IMPRESSION: Multilevel degenerative changes, stable compared to prior exam. Multilevel spinal stenosis most severe at C6-7 secondary to disc bulge. Multilevel foraminal narrowing most severe at C6-7 secondary to uncovertebral arthropathy. Dictated by: Niurka Alonso M.D. on 10/16/2021 at 14:09 Approved by: Niurka Alonso M.D. on 10/16/2021 at 14:37
== END ==
PROVIDERS: PCP Family Medicine; Referring Provider Family Medicine; Visit Provider Family Medicine
DX: M47.812 Spondylosis without myelopathy or radiculopathy, cervical region (principal); M48.02 Spinal stenosis, cervical region; M50.223 Other cervical disc displacement at C6-C7 level; M54.6 Pain in thoracic spine; G89.29 Other chronic pain
CPT/HCPCS: 72141

== ENCOUNTER → 2022-01-19 10:19 | Outpatient (CLI) | payer MEDICARE, SELFPAY ==
[2022-01-19 11:27] LABS: Add Manual Diff / Slide Review NO; Basophils Absolute Auto 0 /uL (0-100); Basophils Percent Auto 0.3 % (0-2); Eosinophils Absolute Auto 200 /uL (0-450); Eosinophils Percent Auto 2.7 % (2-4); Hematocrit 42.3 % (36-46); Hemoglobin 14.3 g/dL (12.0-16.0); Lymphocytes Absolute Auto 2100 /uL (1100-4500); Lymphocytes Percent Auto 25.7 % (25-40); Mean Corpuscular HGB Conc 33.9 % (30-36); Mean Corpuscular Hemoglobin 30.8 PG (26-34); Mean Corpuscular Volume 90.7 fL (80-100); Monocytes Absolute Auto 400 /uL (0-900); Monocytes Percent Auto 4.3 % (3-14); Neutrophils Absolute Auto 5500 /uL (1500-7000); Platelet Count 201 X10^3/uL (150-400); Red Blood Cell Count 4.66 X10^6/uL (4.0-5.2); Red Cell Distribution Width 13.5 % (11.6-14.8); White Blood Cell Count 8.2 X10^3/uL (4.5-11.0)
[2022-01-19 11:45] LABS: Alanine Aminotransferase 20 IU/L (<35); Albumin 4.6 g/dL (3.5-5.0); Albumin Globulin Ratio 1.5 (1.0-2.8); Alkaline Phosphatase 66 U/L (38-126); Aspartate Aminotransferase 26 IU/L (14-36); BUN Creatinine Ratio 13.6 (6-22); Bilirubin Total 0.4 mg/dL (0.2-1.3); Blood Urea Nitrogen 11 mg/dL (7-17); Calcium 9.8 mg/dL (8.4-10.2); Carbon Dioxide 28 mmol/L (22-32); Chloride 104 mmol/L (98-107); Cholesterol 175 mg/dL (140-199); Estimated Glomerular Filt Rate > 60 mL/min (>60); Glucose 155 mg/dL (80-110); HDL Cholesterol 55 mg/dL (40-60); HEMOLYSIS < 15 (0-50); LDL Cholesterol Calculated 99 mg/dL (<100); Potassium 4.6 mmol/L (3.4-5.1); Sodium 140 mmol/L (137-145); Total Protein 7.6 g/dL (6.3-8.2); Triglycerides 106 mg/dL (35-150)
== END ==
PROVIDERS: PCP Family Medicine; Referring Provider Family Medicine; Visit Provider Family Medicine
DX: E11.9 Type 2 diabetes mellitus without complications (principal); I10 Essential (primary) hypertension
CPT/HCPCS: 36415; 80053; 80061; 83036; 85025

== ENCOUNTER → 2022-11-29 09:53 | Outpatient (CLI) | payer MEDICARE, SELFPAY ==
[2022-11-29 10:59] LABS: Add Manual Diff / Slide Review NO; Basophils Absolute Auto 0 /uL (0-100); Basophils Percent Auto 0.3 % (0-2); Eosinophils Absolute Auto 100 /uL (0-450); Hematocrit 41.4 % (36-46); Hemoglobin 14.2 g/dL (12.0-16.0); Lymphocytes Absolute Auto 1900 /uL (1100-4500); Lymphocytes Percent Auto 18.1 % (25-40); Mean Corpuscular HGB Conc 34.3 % (30-36); Mean Corpuscular Hemoglobin 31.1 PG (26-34); Mean Corpuscular Volume 90.6 fL (80-100); Monocytes Absolute Auto 400 /uL (0-900); Monocytes Percent Auto 3.9 % (3-14); Neutrophils Absolute Auto 7900 /uL (1500-7000); Neutrophils Percent Auto 76.7 % (50-75); Platelet Count 195 X10^3/uL (150-400); Red Blood Cell Count 4.57 X10^6/uL (4.0-5.2); Red Cell Distribution Width 13.7 % (11.6-14.8); White Blood Cell Count 10.4 X10^3/uL (4.5-11.0)
[2022-11-29 11:24] LABS: Alanine Aminotransferase 39 IU/L (<35); Albumin 4.5 g/dL (3.5-5.0); Albumin Globulin Ratio 1.3 (1.0-2.8); Alkaline Phosphatase 104 U/L (38-126); Aspartate Aminotransferase 34 IU/L (14-36); BUN Creatinine Ratio 16.5 (6-22); Bilirubin Total 0.9 mg/dL (0.2-1.3); Blood Urea Nitrogen 14 mg/dL (7-17); Calcium 9.9 mg/dL (8.4-10.2); Carbon Dioxide 25 mmol/L (22-32); Chloride 107 mmol/L (98-107); Cholesterol 165 mg/dL (140-199); Estimated Glomerular Filt Rate > 60 mL/min (>60); Globulin 3.4 g/dL (1.7-4.1); Glucose 150 mg/dL (80-110); HDL Cholesterol 54 mg/dL (40-60); HEMOLYSIS < 15 (0-50); LDL Cholesterol Calculated 91 mg/dL (<100); Potassium 4.4 mmol/L (3.4-5.1); Sodium 141 mmol/L (137-145); Total Protein 7.9 g/dL (6.3-8.2); Triglycerides 98 mg/dL (35-150)
[2022-11-29 11:51] LABS: TSH w/ Reflex to FT4 1.16 uIU/mL (0.47-4.68)
[2022-11-30 05:29] LABS: Labcorp Hemoglobin (Hb) A1c 6.3 % (4.8-5.6)
== END ==
PROVIDERS: PCP Family Medicine; Referring Provider Family Medicine; Visit Provider Family Medicine
DX: E11.9 Type 2 diabetes mellitus without complications (principal); E78.2 Mixed hyperlipidemia; I10 Essential (primary) hypertension; R03.0 Elevated blood-pressure reading, without diagnosis of hypertension; R73.01 Impaired fasting glucose
CPT/HCPCS: 36415; 80053; 80061; 83036; 84443; 85025

== ENCOUNTER 2023-05-30 15:15 | Outpatient (RCR) | payer MEDICARE, SELFPAY ==
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
--- NOTE | 2023-04-12 10:14 | PT-OP ANOTE ---
Pt DNS. Attempted to contact pt to notify of missed appt and to remind of next appt, but pt phone not able to receive messages.
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
--- NOTE | 2023-04-28 08:30 | PT-OP ANOTE ---
Per phone pt states she called in to cx her appt due to had a bad night and not feeling well. States she felt good, euphoric after last session.
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
--- NOTE | 2023-07-12 16:27 | PT-OP ANOTE ---
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 States she can do standing chores at home, not able to identify if she is back to her prior level of function. Pt understands if she wants more therapy a new referral will be needed due to expiration of her POC.
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
== END 2023-07-13 14:46 | disposition home or self-care (01) ==
LOC: PHYS 15:15
PROVIDERS: Absent Provider Family Medicine; Family Provider Family Medicine; PCP Family Medicine; Referring Provider Family Medicine; Visit Provider Family Medicine
DX: M54.2 Cervicalgia (principal); G89.29 Other chronic pain; M99.01 Segmental and somatic dysfunction of cervical region
CPT/HCPCS: 95851; 97010; 97110; 97140; 97162; 97535

== ENCOUNTER 2024-05-10 13:45 | Outpatient (RCR) | payer MEDICARE, SELFPAY ==
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
--- NOTE | 2024-04-23 11:16 | PT-OP ANOTE ---
Pt did not show for appt, GAME ADVISOR called her and she said forgot to add this appt to her phone calendar and sad missed it today due to having pain. She asked to reschedule to tomorrow PTAs opening at 730. She stated felt good for about 1 hr after appt with estim but didn't last. She woke up with same pain this am. GAME ADVISOR discussed to ask for a reprinted schedule when if having changes to appts so have the most current to utilize and input into her phone. ALso discussed she should be getting text and call reminders of her appt for carryover. Pt confirmed next appt with PT 04/26.
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
--- NOTE | 2024-05-10 07:56 | PT-OP ANOTE ---
Pt did not show for today's last scheduled appt. [employer] called and pt's mailbox is full, unable to leave a voice message. SAL[employer] REPRES[employer]IVE [employer] spoke to schedulers and will send pt a text message regarding missed appt and please call back to schedule more, none currently scheduled to continue per POC.
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
== END 2024-10-31 11:29 | disposition home or self-care (01) ==
LOC: PHYS 13:45
PROVIDERS: Family Provider Family Medicine; PCP Family Medicine; Referring Provider Family Medicine; Visit Provider Family Medicine
DX: M54.2 Cervicalgia (principal); G89.29 Other chronic pain; M54.6 Pain in thoracic spine; M54.50 Low back pain, unspecified
CPT/HCPCS: 97014; 97110; 97140; 97162; 97535; G0283

== ENCOUNTER → 2024-08-27 11:56 | Outpatient (CLI) | payer MEDICARE, SELFPAY ==
[2024-08-27 13:39] LABS: Add Manual Diff / Slide Review NO; Basophils Absolute Auto 0 /uL (0-100); Basophils Percent Auto 0.5 % (0-2); Eosinophils Absolute Auto 100 /uL (0-450); Eosinophils Percent Auto 1.6 % (2-4); Hematocrit 40.8 % (36-46); Lymphocytes Absolute Auto 1800 /uL (1100-4500); Lymphocytes Percent Auto 24.7 % (25-40); Mean Corpuscular HGB Conc 34.3 % (30-36); Mean Corpuscular Hemoglobin 31.6 PG (26-34); Mean Corpuscular Volume 92.1 fL (80-100); Monocytes Absolute Auto 400 /uL (0-900); Monocytes Percent Auto 4.9 % (3-14); Neutrophils Absolute Auto 4900 /uL (1500-7000); Neutrophils Percent Auto 68.3 % (50-75); Platelet Count 192 X10^3/uL (150-400); Red Blood Cell Count 4.44 X10^6/uL (4.0-5.2); Red Cell Distribution Width 13.3 % (11.6-14.8); White Blood Cell Count 7.1 X10^3/uL (4.5-11.0)
[2024-08-27 13:43] LABS: Hemoglobin A1C% w Est Avg Glu 5.9 % (4.0-6.0)
[2024-08-27 13:59] LABS: Alanine Aminotransferase 25 IU/L (<35); Albumin 4.5 g/dL (3.5-5.0); Albumin Globulin Ratio 1.7 (1.0-2.8); Alkaline Phosphatase 83 U/L (38-126); Aspartate Aminotransferase 33 IU/L (14-36); BUN Creatinine Ratio 14.4 (6-22); Bilirubin Total 0.4 mg/dL (0.2-1.3); Blood Urea Nitrogen 14 mg/dL (7-17); Calcium 9.9 mg/dL (8.4-10.2); Carbon Dioxide 27 mmol/L (22-32); Chloride 103 mmol/L (98-107); Estimated Glomerular Filt Rate > 60 mL/min (>60); Globulin 2.7 g/dL (1.7-4.1); Glucose 162 mg/dL (80-110); HEMOLYSIS < 15 (0-50); Potassium 4.4 mmol/L (3.4-5.1); Sodium 138 mmol/L (137-145); Total Protein 7.2 g/dL (6.3-8.2)
== END ==
PROVIDERS: Family Provider Family Medicine; PCP Family Medicine; Referring Provider Family Medicine; Visit Provider Family Medicine
DX: R63.4 Abnormal weight loss (principal); E11.9 Type 2 diabetes mellitus without complications
CPT/HCPCS: 36415; 80053; 83036; 85025

== ENCOUNTER → 2025-07-06 12:31 | Outpatient (CLI) | payer MEDICARE, SELFPAY ==
[2025-07-06 13:10] LABS: Add Manual Diff / Slide Review NO; Hematocrit 41.9 % (36-46); Hemoglobin 14.5 g/dL (12.0-16.0); Lymphocytes Absolute Auto 2100 /uL (1100-4500); Mean Corpuscular HGB Conc 34.6 % (30-36); Mean Corpuscular Hemoglobin 31.7 PG (26-34); Mean Corpuscular Volume 91.8 fL (80-100); Platelet Count 210 X10^3/uL (150-400)
[2025-07-06 13:34] LABS: Alanine Aminotransferase 46 IU/L (<35); Albumin 4.5 g/dL (3.5-5.0); Albumin Globulin Ratio 1.5 (1.0-2.8); Alkaline Phosphatase 84 U/L (38-126); Blood Urea Nitrogen 13 mg/dL (7-17); Calcium 9.9 mg/dL (8.4-10.2); Carbon Dioxide 26 mmol/L (22-32); Chloride 105 mmol/L (98-107); Cholesterol 231 mg/dL (140-199); Estimated Glomerular Filt Rate > 60 mL/min (>60); Globulin 3.1 g/dL (1.7-4.1); Glucose 167 mg/dL (70-99); HDL Cholesterol 84 mg/dL (40-60); HEMOLYSIS < 15 (0-50); Potassium 4.5 mmol/L (3.4-5.1); Sodium 139 mmol/L (137-145); Total Protein 7.6 g/dL (6.3-8.2); Triglycerides 118 mg/dL (35-150)
== END ==
PROVIDERS: Family Provider Family Medicine; PCP Family Medicine; Referring Provider Family Medicine; Visit Provider Family Medicine
DX: E11.9 Type 2 diabetes mellitus without complications (principal); E78.2 Mixed hyperlipidemia; I10 Essential (primary) hypertension
CPT/HCPCS: 80053; 80061; 85025